=== PATIENT | female | born 1970 | race Caucasian/White ===

== ENCOUNTER → 2018-01-31 | Outpatient (CLI) | payer OTHER | END | disposition home or self-care (01) | LOC: LABWHC1 10:15 | PROVIDERS: ATTEND Internal Medicine Critical Care Medicine | DX: R05 Cough (principal) | CPT/HCPCS: 36415; 82785; 85008 ==

== ENCOUNTER → 2018-03-16 | Outpatient (CLI) | payer OTHER ==
[2018-03-16 17:25] LABS: Alternaria alternata IgE 8.86 kU/L; Birch IgE 2.14 kU/L; Cat Epith & Dander IgE 1.21 kU/L; Cockroach IgE <0.10 kU/L; Dermato. farinae IgE 3.48 kU/L; Dog Dander IgE 0.27 kU/L; Elm IgE <0.10 kU/L; Maple (Box Elder) IgE <0.10 kU/L; Oak IgE 0.26 kU/L; Ragweed,Common IgE 0.71 kU/L; Red Top (Bentgrass) IgE 2.54 kU/L
[2018-03-16 17:30] LABS: Clam IgE <0.10 kU/L; Codfish IgE <0.10 kU/L; Egg White IgE <0.10 kU/L; Peanut IgE <0.10 kU/L; Scallop IgE <0.10 kU/L; Shrimp IgE <0.10 kU/L; Soybean IgE <0.10 kU/L; Walnut IgE (Food) <0.10 kU/L
== END | disposition home or self-care (01) ==
LOC: LABWHC1 11:50
PROVIDERS: ATTEND Internal Medicine Critical Care Medicine
DX: J45.909 Unspecified asthma, uncomplicated (principal); R05 Cough
CPT/HCPCS: 36415; 82785; 86003

== ENCOUNTER → 2018-08-25 | Outpatient (CLI) | payer OTHER ==
--- NOTE | 2018-08-25 13:06 | CT ---
EXAMINATION TYPE: CT angio chest DATE OF EXAM: 08/25/2018 COMPARISON: NONE HISTORY: Shortness of breath CT DLP: 264 mGycm. Automated Exposure Control for Dose Reduction was Utilized. CONTRAST: CTA scan of the thorax is performed with IV Contrast, patient injected with 100 mL of Isovue 370, pul monary embolism protocol. MIP Images are created on CT scanner and reviewed. FINDINGS: LUNGS: The lungs are hypoventilatory resulting in scattered subsegmental atelectasis and slight right hemidiaphragm elevation. The lungs are grossly clear, there is no concerning parenchymal mass or nod ule identified. There is no pleural effusion or pneumothorax seen. The tracheobronchial tree is pa tent. MEDIASTINUM: The left vertebral artery originates strictly from the aortic arch, a normal variant. Th ere is satisfactory enhancement of the pulmonary artery and its branches, there is no CT evidence for pulmonary embolism. There are no greater than 1 cm hilar or mediastinal lymph nodes. No cardiomeg akin or pericardial effusion is seen. IMPRESSION: 1. No evidence of pulmonary embolus. 2. Hypoventilatory lungs with scattered subsegmental atelectasis.
== END | disposition home or self-care (01) ==
LOC: RADCTMAIN 11:55
PROVIDERS: ATTEND Internal Medicine Critical Care Medicine
DX: Z09 Encounter for follow-up examination after completed treatment for conditions other than malignant neoplasm (principal); J98.11 Atelectasis; Z86.711 Personal history of pulmonary embolism
CPT/HCPCS: 71275; Q9967

== ENCOUNTER 2018-12-29 10:35 | Day surgery (SDC) | payer OTHER ==
[2018-12-28 09:36] VITALS: BMI 32.4
[~2018-12-29 10:35] MED LIST: ALBUTEROL NEB (CONC) 2.5 MG/0.5 ML INHALATION ONE; ATROPINE SULFATE 0.4 MG/ML 1 ML VIAL IM ONE; LACTATED RINGERS 1,000 ML IV ONE; LACTATED RINGERS 1,000 ML IV SCH; LIDOCAINE 2% (PF) 20 MG/ML 10 ML AMP INHALATION ONE; LIDOCAINE VISCOUS 2% 15 ML CUP MUCOUS MEM ONE
[2018-12-29 11:02] VITALS: TEMP 97.8
[2018-12-29] MEDS ORDERED: LIDOCAINE 1% 20 ML VIAL (10MG/ML) FOR IV START INTRADERMA ONE (11:17)
[2018-12-29] MEDS ORDERED: PROPOFOL 10 MG/ML 20 ML VIAL IV ONE (12:23)
[2018-12-29] MEDS ORDERED: LIDOCAINE 1% INJ 10MG/ML (20 ML MDV) ONE (12:23)
[2018-12-29] MEDS ORDERED: MIDAZOLAM 2 MG/2 ML VIAL ONE (12:23)
[2018-12-29] MEDS ORDERED: fentaNYL (PF) 50 MCG/ML 2 ML AMP ONE (12:23)
[2018-12-29 12:43] VITALS: RESP 16
[2018-12-29 13:13] VITALS: BP 117/83; PULSE 99
--- NOTE | 2018-12-29 17:10 | OP ---
OPERATIVE REPORT PROCEDURE PERFORMED: Bronchoscopy, airway examination, therapeutic lavage, BAL right middle lobe. PREOP DIAGNOSIS: Severe asthma. POSTOP DIAGNOSIS: Severe asthma. ANESTHESIA: SUPERVISOR ORDNANCE TRUCK INSTALLATION provided general anesthesia, unconscious sedation. BALL MAKER: Dr. May. DESCRIPTION OF PROCEDURE: After the patient was adequately sedated being fully monitored, the bronchoscope inserted through the right nostril. The right nasopharynx, oropharynx and hypopharynx were all traversed. The hypopharyngeal structures including anterior commissure, true cords, false cords, arytenoids, piriform sinuses, right and left vallecula and epiglottis all appeared normal. After topicalization, bronchoscope was pushed through the glottic opening into the trachea. Trachea was normal. There were some secretions noted in the trachea. They were thin. Tracheal tim was sharp. The right and left mainstem were topicalized. The right upper lobe and its 3 segments, right middle lobe and its 2 segments and right lower lobe and its 5 segments, left upper lobe proper and its 2 segments, lingula and its 2 segments and left lower lobe and its 4 segments all had similar findings of diffuse airway erythema and hyperemia. There was diffuse bronchitis noted throughout. It was moderate to severe in its severity. There were thin and thick secretions noted throughout. There was some mucosal friability and the blood vessels were engorged. There was no dominant mass or tumor. Secretions were suctioned. The bronchoscope was wedged into the right middle lobe. The BAL took place. The patient tolerated the procedure well. There was no immediate complication. The patient will be recovered. MMODL / IJN: [id number] /
[2018-12-29 18:02] LABS: Appearance,BF Hazy; Color,BF Red; Nucleated Cells, Body Fluid 1050 /uL
[2018-12-29 18:03] LABS: Mononuclear WBC,Body Fluid 40 %; Polynuclear WBC,Body Fluid 60 %; RBC, Body Fluid 10000 /uL
== END 2018-12-29 13:21 | disposition home or self-care (01) ==
LOC: ORWHC2ENDO 10:35
PROVIDERS: ATTEND Internal Medicine Critical Care Medicine
DX: J45.51 Severe persistent asthma with (acute) exacerbation (principal); J40 Bronchitis, not specified as acute or chronic; Z87.01 Personal history of pneumonia (recurrent); K21.9 Gastro-esophageal reflux disease without esophagitis; Z85.820 Personal history of malignant melanoma of skin; Z80.42 Family history of malignant neoplasm of prostate; Z80.0 Family history of malignant neoplasm of digestive organs; Z82.0 Family history of epilepsy and other diseases of the nervous system; Z79.51 Long term (current) use of inhaled steroids; Z79.899 Other long term (current) drug therapy
CPT/HCPCS: 94640; 81025; 87798 ×3; 87496; 87498; 87529; 88108; 88305; 89050; 87252; 87502; 87634; 87070; 87205; 87116; 87102; 87206; 31624; J2250; J0461; J2001 ×2; J3010; J2704

== ENCOUNTER → 2019-08-16 | Outpatient (CLI) | payer OTHER | END | disposition home or self-care (01) | LOC: LABWHC1 12:09 | PROVIDERS: ATTEND Internal Medicine Critical Care Medicine | DX: J45.909 Unspecified asthma, uncomplicated (principal); R05 Cough | CPT/HCPCS: 36415; 85008 ==

== ENCOUNTER 2019-08-29 12:56 | Day surgery (SDC) | payer BC, OTHER ==
[2019-08-27 15:55] VITALS: BMI 32.1
[~2019-08-29 12:56] MED LIST changes: -LACTATED RINGERS 1,000 ML IV ONE; +LIDOCAINE 1% 20 ML VIAL (10MG/ML) FOR IV START INTRADERMA PRN; -LIDOCAINE 2% (PF) 20 MG/ML 10 ML AMP INHALATION ONE; +LIDOCAINE 2% (PF) 20 MG/ML 5 ML VIAL INHALATION ONE; -LIDOCAINE VISCOUS 2% 15 ML CUP MUCOUS MEM ONE; +LIDOCAINE VISCOUS 300 MG/15 ML CUP MUCOUS MEM ONE; +SODIUM CHLORIDE 0.9% 1,000 ML IV SCH
[2019-08-29 13:23] VITALS: TEMP 97
[2019-08-29 13:25] LABS: Glucose,Whole Blood 88 mg/dL (75-99)
[2019-08-29] MEDS ORDERED: LIDOCAINE 1% INJ 10MG/ML (20 ML MDV) ONE (14:07)
[2019-08-29] MEDS ORDERED: GLYCOPYRROLATE 0.2 MG/ML 2 ML VIAL ONE (14:07)
[2019-08-29] MEDS ORDERED: KETAMINE 10 MG/ML 20 ML VIAL ONE (14:07)
[2019-08-29] MEDS ORDERED: MIDAZOLAM 2 MG/2 ML VIAL ONE (14:07)
[2019-08-29] MEDS ORDERED: PROPOFOL 10 MG/ML 20 ML VIAL IV ONE (14:07)
[2019-08-29] MEDS ORDERED: LIDOCAINE 2% INJ 20 MG/ML INTRATRACH ONE (14:19)
[2019-08-29 14:58] VITALS: RESP 16
[2019-08-29 15:18] VITALS: BP 118/82; PULSE 114
[2019-08-29 15:57] LABS: Appearance,BF Hazy; Color,BF Pink; Nucleated Cells, Body Fluid 120 /uL; RBC, Body Fluid 6875 /uL
[2019-08-29 16:07] LABS: Mononuclear WBC,Body Fluid 34 %; Polynuclear WBC,Body Fluid 64 %
--- NOTE | 2019-08-29 23:46 | PCN ---
PROCEDURE NOTE PROCEDURE PERFORMED: Bronchoscopy airway examination, therapeutic lavage, BAL right middle lobe. PREOPERATIVE DIAGNOSIS: Severe chronic bronchial asthma. POSTOP DIAGNOSIS: Severe chronic bronchial asthma. ELECTRICIAN AIRCRAFT: Dr. May and Dr. Fontana. ANESTHESIA: SMALL LOT OPERATOR anesthesia provided general anesthesia and unconscious sedation. DESCRIPTION OF PROCEDURE: There was informed consent. There was universal timeout. After the patient was adequately sedated and being fully monitored, the bronchoscope was inserted through the right nostril. It passed through the right nasopharynx into the oropharynx. The hypopharynx was identified and topicalized. The hypopharyngeal structures including anterior commissure, true cords, false cords, arytenoids, piriform sinuses, right and left epiglottic and vallecula all appeared relatively normal. The glottic opening was topicalized. After topicalization, bronchoscope was pushed through the glottic opening into the trachea. Trachea appeared normal. Tracheal tim was sharp. Next, after topicalization of the right and left mainstem, the right upper lobe and its 3 segments, right middle lobe and its 2 segments, the right lower lobe and its 5 segments, left upper lobe proper and its 2 segments, the lingula and its 2 segments and the left lower lobe and its 4 segments were all evaluated. There was diffuse airway erythema and hyperemia. The mucosa was inflamed. There was some mucosal friability. There were secretions noted throughout. They were thin and frothy. They were suctioned without difficulty. There was no dominant mass or tumor. After secretions removed, the bronchoscope was wedged into the right middle lobe. The BAL took place. About 30 mL was returned. The patient tolerated the procedure well. After any additional secretions were removed, the bronchoscope was withdrawn. The patient will be recovered. There was no immediate complication. MMODL / IJN: [id number] /
== END 2019-08-29 15:30 | disposition home or self-care (01) ==
LOC: ORWHC2ENDO 12:56
PROVIDERS: ATTEND Internal Medicine Critical Care Medicine
DX: J45.998 Other asthma (principal); K21.9 Gastro-esophageal reflux disease without esophagitis; Z87.01 Personal history of pneumonia (recurrent); Z85.820 Personal history of malignant melanoma of skin; Z87.09 Personal history of other diseases of the respiratory system; Z80.42 Family history of malignant neoplasm of prostate; Z80.0 Family history of malignant neoplasm of digestive organs; Z82.0 Family history of epilepsy and other diseases of the nervous system; Z83.49 Family history of other endocrine, nutritional and metabolic diseases; Z90.49 Acquired absence of other specified parts of digestive tract; Z98.51 Tubal ligation status; Z79.51 Long term (current) use of inhaled steroids; Z79.52 Long term (current) use of systemic steroids; Z79.899 Other long term (current) drug therapy
CPT/HCPCS: 94640; 81025; 88108; 88305; 89050; 87252; 87070; 87205; 87116; 87102; 87206; 31624; J2001 ×3; J2250; J0461; J2704

== ENCOUNTER → 2019-09-24 | Outpatient (CLI) | payer BC | END | disposition home or self-care (01) | LOC: CPPFTMAIN 13:29 | PROVIDERS: ATTEND Internal Medicine Critical Care Medicine | DX: J45.909 Unspecified asthma, uncomplicated (principal); R94.2 Abnormal results of pulmonary function studies | CPT/HCPCS: 94060; 94726; 94729 ==

== ENCOUNTER → 2019-10-04 | Outpatient (CLI) | payer BC ==
[2019-10-04 09:23] LABS: Basophils # (A) 0.1 k/uL (0-0.2); Basophils % (A) 1 %; Eosinophils # (A) 0.1 k/uL (0-0.7); Eosinophils % (A) 1 %; HCT 44.6 % (34.0-46.0); HGB 14.2 gm/dL (11.4-16.0); Lymphocytes # (A) 1.6 k/uL (1.0-4.8); Lymphocytes % (A) 14 %; MCH 30.4 pg (25.0-35.0); MCHC 31.8 g/dL (31.0-37.0); MCV 95.6 fL (80.0-100.0); Mean Platelet Volume 6.4; Monocytes # (A) 0.6 k/uL (0-1.0); Monocytes % (A) 5 %; Neutrophils # (A) 8.9 k/uL (1.3-7.7); Neutrophils % (A) 78 %; Platelet Count 346 k/uL (150-450); RBC 4.67 m/uL (3.80-5.40); RDW 13.7 % (11.5-15.5); WBC 11.4 k/uL (3.8-10.6)
[2019-10-04 16:53] LABS: African American GFR (CKD) 86.4 (60.0-200.0); Albumin 4.5 g/dL (3.80-4.90); Albumin/Globulin Ratio 2.25 (1.60-3.17); Anion Gap 7.2 mmol/L (4.00-12.00); BUN/Creat Ratio 14.44 Ratio (12.00-20.00); Calcium 9.2 mg/dL (8.7-10.3); Carbon Dioxide 27.8 mmol/L (21.6-31.8); Chol/HDL Ratio 5.22; LDL Cholesterol,Calculated 197.6 mg/dL (0.0-131.0); Potassium 4.3 mmol/L (3.5-5.5); Total Bilirubin 0.6 mg/dL (0.2-1.2); Total Protein 6.5 g/dL (6.2-8.2); VLDL Calculation 34.4 mg/dL (5.00-40.00)
[2019-10-04 17:01] LABS: Follicle Stimulating Hormone 50.7 mIU/mL; Luteinizing Hormone 31.4 mIU/mL
== END | disposition home or self-care (01) ==
LOC: LABWHC1 08:11
PROVIDERS: ATTEND Family Medicine
DX: Z00.00 Encounter for general adult medical examination without abnormal findings (principal); N95.1 Menopausal and female climacteric states
CPT/HCPCS: 36415; 80053; 80061; 83001; 83002; 84443; 85025

== ENCOUNTER → 2019-10-10 | Outpatient (CLI) | payer BC ==
--- NOTE | 2019-10-11 10:56 | MM ---
Reason for exam: screening (asymptomatic). Last mammogram was performed 8 years and 5 months ago. History: Took hormonal contraceptives for 3 years beginning at age 19. Physical Findings: A clinical breast exam by your physician is recommended on an annual basis and results should be correlated with mammographic findings. MG Screening Mammo w CAD Bilateral CC and MLO view(s) were taken. Prior study comparison: May 19, 2011, bilateral digital screening mammo w/CAD. April 01, 2010, bilateral digital screening mammogram. The breast tissue is almost entirely fat. There is no discrete abnormality. No significant changes when compared with prior studies. ASSESSMENT: Negative, BI-RAD 1 RECOMMENDATION: Routine screening mammogram of both breasts in 1 year.
== END | disposition home or self-care (01) ==
LOC: RADMAMWWP 07:09
PROVIDERS: ATTEND Family Medicine
DX: Z12.31 Encounter for screening mammogram for malignant neoplasm of breast (principal)
CPT/HCPCS: 77067

== ENCOUNTER 2021-08-07 11:26 | Observation (INO) | payer BC ==
[2021-08-07] MEDS ORDERED: SODIUM CHLORIDE 0.9% 500 ML 500 ML IV STA (12:32)
[2021-08-07] MEDS ORDERED: MORPHINE SULFATE 4 MG/ML SYRINGE IV STA (12:32)
[2021-08-07 13:01] LABS: Basophils # (A) 0.1 k/uL (0-0.2); Basophils % (A) 1 %; Eosinophils # (A) 0.1 k/uL (0-0.7); Eosinophils % (A) 1 %; HCT 41.2 % (34.0-46.0); HGB 13.8 gm/dL (11.4-16.0); Lymphocytes # (A) 2.2 k/uL (1.0-4.8); Lymphocytes % (A) 25 %; MCH 30.8 pg (25.0-35.0); MCHC 33.5 g/dL (31.0-37.0); MCV 91.9 fL (80.0-100.0); Mean Platelet Volume 7.9; Monocytes # (A) 0.4 k/uL (0-1.0); Monocytes % (A) 4 %; Neutrophils # (A) 6.2 k/uL (1.3-7.7); Neutrophils % (A) 68 %; Platelet Count 360 k/uL (150-450); RBC 4.49 m/uL (3.80-5.40)
[2021-08-07 13:14] LABS: Albumin 3.8 g/dL (3.5-5.0); Calcium 9.5 mg/dL (8.4-10.2); Potassium 3.5 mmol/L (3.5-5.1); Total Bilirubin 0.5 mg/dL (0.2-1.3); Total Protein 6.5 g/dL (6.3-8.2)
--- NOTE | 2021-08-07 13:41 | ED ---
General Adult HPI - General Chief complaint: Abdominal Pain Stated complaint: post op complications Time Seen by Provider: 08/07/21 12:26 Source: patient, family, RN notes reviewed, old records reviewed Mode of arrival: ambulatory Limitations: no limitations - History of Present Illness Initial comments: 50-year-old female presenting for evaluation of abdominal pain, has epigastric pain. Patient is 2 days status post upper GI endoscopy and colonoscopy. She has developed some epigastric discomfort which does radiate to both sides of her upper abdomen and lower chest. She has had discomfort and myalgias and bilateral shoulders and arms. No diarrhea. She is passing gas. No history of CAD. No reported fever. - Related Data Home Medications Medication Instructions Recorded Confirmed Beclomethasone Dipropionate [Qvar 2 puff INHALATION RT-BID 12/28/18 08/07/21 80 mcg] Mometasone/Formoterol [Dulera 200 2 puff INHALATION RT-BID 12/28/18 08/07/21 Mcg/5 Mcg Inhaler] Montelukast [Singulair] 10 mg PO HS 12/28/18 08/07/21 Atorvastatin [Lipitor] 10 mg PO W/SUPPER 08/07/21 08/07/21 Baclofen [Lioresal] 20 mg PO ACHS 08/07/21 08/07/21 EPINEPHrine (Auto Inject) [Epipen] 0.3 mg IM ONCE PRN 08/07/21 08/07/21 Omalizumab [Xolair] 300 mg SQ Q14D 08/07/21 08/07/21 Omeprazole 20 mg PO BID 08/07/21 08/07/21 Sertraline [Zoloft] 50 mg PO DAILY 08/07/21 08/07/21 Allergies Allergy/AdvReac Type Severity Reaction Status Date / Time No Known Allergies Allergy Verified 08/07/21 13:39 Review of Systems ROS Statement: Those systems with pertinent positive or pertinent negative responses have been documented in the HPI. ROS Other: All systems not noted in ROS Statement are negative. Past Medical History Past Medical History: Asthma, Cancer, GERD/Reflux Additional Past Medical History / Comment(s): ESOPHAGEAL MOTILITY problem, skin cancer, kidney stones, SOB w/exertion History of Any Multi-Drug Resistant Organisms: None Reported Past Surgical History: Adenoidectomy, Cholecystectomy, Tonsillectomy, Tubal Ligation Additional Past Surgical History / Comment(s): EGD, manometry,motility study,. LIPOMA LT ARM, RT ARM-REMOVAL BLUE NEVI -MALIGNANT, MELANOMA REMOVED FROM STOMACH. KIDNEY STONE-LITHOTRIPSY, bronchoscopy 2018 Past Anesthesia/Blood Transfusion Reactions: No Reported Reaction Past Psychological History: No Psychological Hx Reported Smoking Status: Never smoker Past Alcohol Use History: None Reported Past Drug Use History: None Reported - Past Family History Mother Family Medical History: Cancer Additional Family Medical History / Comment(s): PHLEBITIS Father Family Medical History: Cancer, Diabetes Mellitus General Exam Limitations: no limitations General appearance: alert, in no apparent distress Head exam: Present: atraumatic, normocephalic Eye exam: Present: normal appearance, PERRL ENT exam: Present: mucous membranes dry Neck exam: Present: normal inspection. Absent: tenderness, meningismus Respiratory exam: Present: normal lung sounds bilaterally. Absent: respiratory distress, wheezes, rales Cardiovascular Exam: Present: regular rate, normal rhythm GI/Abdominal exam: Present: soft, distended. Absent: tenderness, guarding, rebound Neurological exam: Present: alert, oriented X3, CN II-XII intact. Absent: motor sensory deficit Psychiatric exam: Present: normal affect, normal mood Skin exam: Present: warm, dry, intact, normal color. Absent: cyanosis, diaphoretic Course Vital Signs 08/07/21 08/07/21 11:47 13:58 Temperature 98 F Pulse Rate 91 93 Respiratory 18 18 Rate Blood Pressure 168/106 162/89 O2 Sat by Pulse 93 L 96 Oximetry EKG Findings - EKG Comments: EKG Findings:: EKG: Normal sinus rhythm, rate of 81, OR interval 180, QRS duration 88, QTC 464, no ST segment elevation. Medical Decision Making - Medical Decision Making 50-year-old female status post upper GI endoscopy and colonoscopy presenting with epigastric pain and lower chest pain. EKG sinus rhythm without ST segment elevation. Chest x-rays clear, no focal findings. CT of the abdomen is performed which shows some incidental findings of fatty liver and renal cysts but no acute findings to explain the patient's pain. She has a normal CBC, normal CMP, negative troponin. Urinalysis is pending. Her symptoms are unable to be controlled in the emergency department. She will be placed in observation for symptomatic treatment and reevaluation. Case discussed with [facility] - Lab Data Result diagrams: 08/07/21 12:41 08/07/21 12:41 Lab Results 08/07/21 08/07/21 08/07/21 Range/Units 12:41 12:41 12:41 WBC 9.0 (3.8-10.6) k/uL RBC 4.49 (3.80-5.40) m/uL Hgb 13.8 (11.4-16.0) gm/dL Hct 41.2 (34.0-46.0) % MCV 91.9 (80.0-100.0) fL MCH 30.8 (25.0-35.0) pg MCHC 33.5 (31.0-37.0) g/dL RDW 13.0 (11.5-15.5) % Plt Count 360 (150-450) k/uL MPV 7.9 Neutrophils % 68 % Lymphocytes % 25 % Monocytes % 4 % Eosinophils % 1 % Basophils % 1 % Neutrophils # 6.2 (1.3-7.7) k/uL Lymphocytes # 2.2 (1.0-4.8) k/uL Monocytes # 0.4 (0-1.0) k/uL Eosinophils # 0.1 (0-0.7) k/uL Basophils # 0.1 (0-0.2) k/uL PT 9.9 (9.0-12.0) sec INR 0.9 (<1.2) APTT 22.8 (22.0-30.0) sec Sodium 143 (137-145) mmol/L Potassium 3.5 (3.5-5.1) mmol/L Chloride 110 H (98-107) mmol/L Carbon Dioxide 27 (22-30) mmol/L Anion Gap 6 mmol/L BUN 11 (7-17) mg/dL Creatinine 0.92 (0.52-1.04) mg/dL Est GFR (CKD-EPI)AfAm 84 (>60 ml/min/1.73 sqM) Est GFR (CKD-EPI)NonAf 73 (>60 ml/min/1.73 sqM) Glucose 107 H (74-99) mg/dL Plasma Lactic Acid [place] (0.7-2.0) mmol/L Calcium 9.5 (8.4-10.2) mg/dL Total Bilirubin 0.5 (0.2-1.3) mg/dL AST 27 (14-36) U/L ALT 45 H (4-34) U/L Alkaline Phosphatase 87 (38-126) U/L Troponin I (0.000-0.034) ng/mL Total Protein 6.5 (6.3-8.2) g/dL Albumin 3.8 (3.5-5.0) g/dL Amylase 46 (30-110) U/L Lipase 171 (23-300) U/L Coronavirus (PCR) (Not Detectd) 08/07/21 08/07/21 08/07/21 Range/Units 12:41 12:41 12:41 WBC (3.8-10.6) k/uL RBC (3.80-5.40) m/uL Hgb (11.4-16.0) gm/dL Hct (34.0-46.0) % MCV (80.0-100.0) fL MCH (25.0-35.0) pg MCHC (31.0-37.0) g/dL RDW (11.5-15.5) % Plt Count (150-450) k/uL MPV Neutrophils % % Lymphocytes % % Monocytes % % Eosinophils % % Basophils % % Neutrophils # (1.3-7.7) k/uL Lymphocytes # (1.0-4.8) k/uL Monocytes # (0-1.0) k/uL Eosinophils # (0-0.7) k/uL Basophils # (0-0.2) k/uL PT (9.0-12.0) sec INR (<1.2) APTT (22.0-30.0) sec Sodium (137-145) mmol/L Potassium (3.5-5.1) mmol/L Chloride (98-107) mmol/L Carbon Dioxide (22-30) mmol/L Anion Gap mmol/L BUN (7-17) mg/dL Creatinine (0.52-1.04) mg/dL Est GFR (CKD-EPI)AfAm (>60 ml/min/1.73 sqM) Est GFR (CKD-EPI)NonAf (>60 ml/min/1.73 sqM) Glucose (74-99) mg/dL Plasma Lactic Acid [place] 1.0 (0.7-2.0) mmol/L Calcium (8.4-10.2) mg/dL Total Bilirubin (0.2-1.3) mg/dL AST (14-36) U/L ALT (4-34) U/L Alkaline Phosphatase (38-126) U/L Troponin I <0.012 (0.000-0.034) ng/mL Total Protein (6.3-8.2) g/dL Albumin (3.5-5.0) g/dL Amylase (30-110) U/L Lipase (23-300) U/L Coronavirus (PCR) Not Detected (Not Detectd) Disposition Clinical Impression: Intractable abdominal pain Disposition: ADMITTED IP TO THIS [facility] Condition: Stable Is patient prescribed a controlled substance at d/c from ED?: No Referrals: Caity Maddox MD [Primary Care Provider] - 1-2 days Decision to Admit Reason: Admit from EC Decision Date: 08/07/21 Decision Time: 15:11
[2021-08-07 13:46] LABS: INR 0.9 (<1.2); Partial Thromboplastin Time 22.8 sec (22.0-30.0); Prothrombin Time 9.9 sec (9.0-12.0)
--- NOTE | 2021-08-07 14:05 | CT ---
EXAMINATION TYPE: CT abdomen pelvis w con DATE OF EXAM: 08/07/2021 COMPARISON: None INDICATION: pain post colonoscopy DLP: 1033.4 mGycm, Automated exposure control for dose reduction was used. CONTRAST: 100 mL of Isovue 300. Study performed without Oral Contrast TECHNIQUE: Axial images were obtained from above the diaphragm to the pubic rami in the axial plane a t 5 mm thick sections. Reconstructed images are reviewed on the computer in the coronal plane. FINDINGS: Limited CT sections are obtained the lung bases. The lung bases are clear. CT ABDOMEN: No free air is evident. Abnormal bowel gas is not evident. There are a few small scattere d diverticula are present without evidence of acute diverticulitis. Liver: There is mild fatty infiltration to the liver. Spleen: Normal Pancreas: Normal Adrenal glands: The adrenal glands are normal. Gallbladder: Surgically absent Kidneys: No masses are evident. No hydronephrosis is present. There is a 2.1 cm cyst posterior infe rior pole left kidney measuring 15 Hounsfield units. There is a cortical renal cyst on the mid engineering group leader ior lateral kidney measuring 1.1 cm. An inferior pole cortical renal cyst in the left kidney measures 2.2 cm and 13 Hounsfield units. Scattered tiny cortical renal cysts are in the right kidney. There i s a cyst at the inferior pole right kidney measuring 2.2 cm and 13 Hounsfield units. No renal stones are identified. Aorta: Normal Inferior vena cava: Normal. CT PELVIS: Loops of bowel within the abdomen and pelvis are normal. The study is without oral contrast limit ing bowel evaluation. Appendix: Normal as visualized. Urinary bladder: Normal. Genitourinary structures: Uterus is unremarkable. Adnexal regions are clear. No free fluid is pelvis. Osseous structures: No suspicious lytic or sclerotic lesions. IMPRESSIONS: 1. Bilateral cortical renal cysts. 2. Mild fatty infiltration of the liver.
[2021-08-07 14:45] LABS: Appearance,Urine Clear (Clear); Bacteria,Urine Rare /hpf; Bilirubin,Urine Negative (Negative); Blood,Urine Negative (Negative); Color,Urine Light Yellow; Glucose,Urine (UA) Negative (Negative); Ketones,Urine Negative (Negative); Leukocyte Esterase,Urine Moderate (Negative); Mucus,Urine Rare /hpf; Nitrite,Urine Negative (Negative); Protein,Urine Negative (Negative); RBC,Urine <1 /hpf (0-5); Squamous Epithelial Cell,Urine 2 /hpf (0-4); Urobilinogen,Urine <2.0 mg/dL (<2.0); WBC,Urine 13 /hpf (0-5)
--- NOTE | 2021-08-07 14:52 | XR ---
EXAMINATION TYPE: XR chest 2V DATE OF EXAM: 08/07/2021 COMPARISON: NONE TECHNIQUE: PA and lateral views submitted. HISTORY: Generalized body aches with pain and weakness FINDINGS: The lungs are clear and there is no pneumothorax, pleural effusion, or focal pneumonia. Heart size normal. No overt failure. Biapical pleural thickening. Surgical clips in the upper abdomen. Hypertrop hic change of the spine. IMPRESSION: 1. No acute process.
[2021-08-07] MEDS ORDERED: HYDROmorphone 0.5 MG/0.5 ML SYRINGE IVP STA (14:56)
[2021-08-07] MEDS ORDERED: ONDANSETRON 4 MG/2 ML VIAL IVP PRN (15:09)
[2021-08-07] MEDS ORDERED: NALOXONE 0.4 MG/ML 1 ML VIAL IV PRN (15:09)
[2021-08-07] MEDS ORDERED: HYDROmorphone 0.5 MG/0.5 ML SYRINGE IVP PRN (15:09)
[2021-08-07] MEDS ORDERED: PANTOPRAZOLE 40 MG/10 ML VIAL IVP STA (15:10)
[2021-08-07] MEDS: SODIUM CHLORIDE 0.9% 1,000 ML IV SCH (15:47)
[2021-08-07] MEDS: HYDROmorphone 1 MG/ML 1 ML SYRINGE IVP PRN ×2 (18:31→22:19)
[2021-08-07] MEDS: ACETAMINOPHEN TAB 325 MG TAB PO PRN (20:03)
[2021-08-07] MEDS ORDERED: NON FORMULARY DRUG (Omalizumab 150 MG Each) SQ SCH (21:15)
[2021-08-08] MEDS: ACETAMINOPHEN TAB 325 MG TAB PO PRN (01:43)
[2021-08-08] MEDS: SODIUM CHLORIDE 0.9% 1,000 ML IV SCH (05:51)
[2021-08-08] MEDS ORDERED: SYMBICORT 160-4.5 MCG INHALER INHALATION SCH (08:00)
[2021-08-08] MEDS ORDERED: FLUTICASONE 110 MCG INHALER INHALATION SCH (08:00)
[2021-08-08] MEDS: BACLOFEN 10 MG TAB PO SCH ×2 (08:22→13:47)
[2021-08-08] MEDS ORDERED: HYDROmorphone 0.2 MG/1 ML SYRINGE IM PRN (08:55)
--- NOTE | 2021-08-08 08:55 | P.HPIM ---
History of Present Illness H&P Date: 08/07/21 Chief Complaint: Abdominal pain 50-year-old female presenting for evaluation of abdominal pain, has epigastric pain. Patient is 2 days status post upper GI endoscopy and colonoscopy. She has developed some epigastric discomfort which does radiate to both sides of her upper abdomen and lower chest. She has had discomfort and myalgias and bilateral shoulders and arms. No diarrhea. She is passing gas. No history of CAD. No reported fever. EKG sinus rhythm without ST segment elevation. Chest x-rays clear, no focal findings. CT of the abdomen is performed which shows some incidental findings of fatty liver and renal cysts but no acute findings to explain the patient's pain. She has a normal CBC, normal CMP, negative troponin. Urinalysis is pending. Her symptoms are unable to be controlled in the emergency department. She will be placed in observation for symptomatic treatment and reevaluation. Review of Systems REVIEW OF SYSTEMS: CONSTITUTIONAL: No fever, no malaise, no fatigue. HEENT: No recent visual problems or hearing problems. Denied any sore throat. CARDIOVASCULAR: No chest pain, orthopnea, PND, no palpitations, no syncope. PULMONARY: No shortness of breath, no cough, no hemoptysis. GASTROINTESTINAL: No diarrhea, no nausea, no vomiting, no abdominal pain. NEUROLOGICAL: No headaches, no weakness, no numbness. HEMATOLOGICAL: Denies any bleeding or petechiae. GENITOURINARY: Denies any burning micturition, frequency, or urgency. MUSCULOSKELETAL/RHEUMATOLOGICAL: Denies any joint pain, swelling, or any muscle pain. ENDOCRINE: Denies any polyuria or polydipsia. The rest of the 14-point review of systems is negative. Past Medical History Past Medical History: Asthma, Cancer, GERD/Reflux Additional Past Medical History / Comment(s): ESOPHAGEAL MOTILITY problem, skin cancer, kidney stones, SOB w/exertion History of Any Multi-Drug Resistant Organisms: None Reported Past Surgical History: Adenoidectomy, Cholecystectomy, Tonsillectomy, Tubal Ligation Additional Past Surgical History / Comment(s): EGD, manometry,motility study,. LIPOMA LT ARM, RT ARM-REMOVAL BLUE NEVI -MALIGNANT, MELANOMA REMOVED FROM STOMACH. KIDNEY STONE-LITHOTRIPSY, bronchoscopy 2018 Past Anesthesia/Blood Transfusion Reactions: No Reported Reaction Past Psychological History: No Psychological Hx Reported Smoking Status: Never smoker Past Alcohol Use History: None Reported Past Drug Use History: None Reported - Past Family History Mother Family Medical History: Cancer Additional Family Medical History / Comment(s): PHLEBITIS Father Family Medical History: Cancer, Diabetes Mellitus Medications and Allergies Home Medications Medication Instructions Recorded Confirmed Type Beclomethasone Dipropionate [Qvar 2 puff INHALATION RT-BID 12/28/18 08/07/21 H istory 80 mcg] Mometasone/Formoterol [Dulera 200 2 puff INHALATION RT-BID 12/28/18 08/07/21 H istory Mcg/5 Mcg Inhaler] Montelukast [Singulair] 10 mg PO HS 12/28/18 08/07/21 History Atorvastatin [Lipitor] 10 mg PO W/SUPPER 08/07/21 08/07/21 History Baclofen [Lioresal] 20 mg PO ACHS 08/07/21 08/07/21 History EPINEPHrine (Auto Inject) [Epipen] 0.3 mg IM ONCE PRN 08/07/21 08/07/21 History Omalizumab [Xolair] 300 mg SQ Q14D 08/07/21 08/07/21 History Omeprazole 20 mg PO BID 08/07/21 08/07/21 History Sertraline [Zoloft] 50 mg PO DAILY 08/07/21 08/07/21 History Allergies Allergy/AdvReac Type Severity Reaction Status Date / Time No Known Allergies Allergy Verified 08/07/21 13:39 Physical Exam Vitals: Vital Signs Temp Pulse Pulse Resp BP BP Pulse Ox 08/07/21 16:36 98.2 F 69 18 127/79 94 L 08/07/21 15:53 75 18 142/99 94 L 08/07/21 13:58 93 18 162/89 96 08/07/21 11:47 98 F 91 18 168/106 93 L Intake and Output 08/07/21 08/07/21 08/07/21 06:59 14:59 22:59 Intake Total 270 Balance 270 Intake: Intake, IV Titration 150 Amount Sodium Chloride 0.9% 1, 150 000 ml @ 75 mls/hr IV . [id number] [facility] Rx#:[id number] Oral 120 Other: Weight 84.822 kg 84.822 kg General appearance: alert, in no apparent distress Head exam: Present: atraumatic, normocephalic Eye exam: Present: normal appearance, PERRL ENT exam: Present: mucous membranes dry Neck exam: Present: normal inspection. Absent: tenderness, meningismus Respiratory exam: Present: normal lung sounds bilaterally. Absent: respiratory distress, wheezes, rales Cardiovascular Exam: Present: regular rate, normal rhythm GI/Abdominal exam: Present: soft, distended. Absent: tenderness, guarding, rebound Neurological exam: Present: alert, oriented X3, CN II-XII intact. Absent: motor sensory deficit Psychiatric exam: Present: normal affect, normal mood Skin exam: Present: warm, dry, intact, normal color. Absent: cyanosis, di aphoretic Results CBC & Chem 7: 08/07/21 12:41 08/07/21 12:41 Labs: Abnormal Lab Results - Last 24 Hours (Table) 08/07/21 08/07/21 Range/Units 12:41 12:41 Chloride 110 H (98-107) mmol/L Glucose 107 H (74-99) mg/dL ALT 45 H (4-34) U/L Ur Leukocyte Esterase Moderate H (Negative) Urine WBC 13 H (0-5) /hpf Urine Bacteria Rare H (None) /hpf Urine Mucus Rare H (None) /hpf Thrombosis Risk Factor Assmnt - Choose All That Apply Each Factor Represents 1 point: Age 41-60 years, Obesity (BMI >25) Each Risk Factor Represents 2 Points: Laparoscopic surgery Other congenital or acquired thrombophilia - If yes, enter type in comment: No Thrombosis Risk Factor Assessment Total Risk Factor Score: 4 Thrombosis Risk Factor Assessment Level: Moderate Risk Assessment and Plan Assessment: 1. Intractable abdominal pain; patient is status post endoscopy and colonoscopy which were reportedly unremarkable; continues to present with epigastric pain - Patient has been placed on Protonix 40 mg daily; symptomatic treatment with Dilaudid 0.5 mg IV every 3 hours when necessary; remains on Zofran for symptomatic control of nausea and vomiting - Patient will remain on IV hydration with normal saline at 75 mL an hour - CT of the abdomen and pelvis has been unremarkable - We will plan to consult general surgery if patient continues to be in pain 2. Acute UTI; UA does reveal moderate leukocyte Estrace and some bacteria; patient is currently afebrile and WBC is within normal limit; we will hold off on IV antibiotics at this time to final culture is available 3. Asthma; not in exacerbation; continue home inhaler therapy in form of Qvar, Dulera, Xolair and Singulair 4. Depression; continue with home dose of Zoloft 50 mg daily 5. Hyperlipidemia; Lipitor 10 mg by mouth daily at bedtime 6. Gastroesophageal reflux disease; patient takes omeprazole 20 mg twice a day at home; we will hold off on omeprazole and escalate Protonix up to 40 mg by mouth twice a day DVT prophylaxis; SCDs CODE STATUS; full code
[2021-08-08 08:59] VITALS: BP 146/92; PULSE 64; RESP 17; TEMP 97.6
[2021-08-08] MEDS ORDERED: PANTOPRAZOLE 40 MG TABLET PO SCH (09:00)
[2021-08-08] MEDS ORDERED: SERTRALINE 50 MG TAB PO SCH (09:00)
[2021-08-08] MEDS ORDERED: ATORVASTATIN 10 MG TAB PO SCH (17:30)
[2021-08-08] MEDS ORDERED: MONTELUKAST 10 MG TAB PO SCH (21:00)
== END 2021-08-08 14:44 | disposition home or self-care (01) ==
LOC: EC 11:26 → 6PED 15:09
PROVIDERS: ADMIT Internal Medicine; ATTEND Internal Medicine
DX: R10.13 Epigastric pain (principal); R07.89 Other chest pain; R11.2 Nausea with vomiting, unspecified; N39.0 Urinary tract infection, site not specified; J45.909 Unspecified asthma, uncomplicated; F32.9 Major depressive disorder, single episode, unspecified; E78.5 Hyperlipidemia, unspecified; K21.9 Gastro-esophageal reflux disease without esophagitis; M79.18 Myalgia, other site; E66.9 Obesity, unspecified; Z68.31 Body mass index [BMI] 31.0-31.9, adult; K22.8 Other specified diseases of esophagus; Z20.822 Contact with and (suspected) exposure to COVID-19; Z87.442 Personal history of urinary calculi; Z85.820 Personal history of malignant melanoma of skin; Z79.51 Long term (current) use of inhaled steroids; Z79.899 Other long term (current) drug therapy; Z90.49 Acquired absence of other specified parts of digestive tract; Z98.890 Other specified postprocedural states; Z83.3 Family history of diabetes mellitus; Z80.9 Family history of malignant neoplasm, unspecified; Z83.2 Family history of diseases of the blood and blood-forming organs and certain disorders involving the immune mechanism
CPT/HCPCS: 96361 ×3; 96376 ×2; 96374; 96375; 99285; 36415; 94640 ×2; 93005; 80053; 82150; 83605; 83690; 84484; 85025; 85610; 85730; 81001; 87086; 87635; 71046; 74177; G0378 ×2; J2270; J1170 ×3; C9113; Q9967

== ENCOUNTER 2021-08-27 16:22 | Emergency (ER) | payer BC ==
[2021-08-27 16:32] VITALS: RESP 18; TEMP 98.6
[2021-08-27] MEDS ORDERED: SODIUM CHLORIDE 0.9% 500 ML 500 ML IV STA (16:49)
--- NOTE | 2021-08-27 16:50 | ED ---
Neuro HPI - General Chief Complaint: Neuro Symptoms/Deficit Stated Complaint: Stroke Time Seen by Provider: 08/27/21 16:37 Source: patient Mode of arrival: ambulatory Limitations: no limitations - History of Present Illness Is the patient presenting with stroke symptoms?: Yes Last Known Well Date: 08/27/21 Last Known Well Time: 07:00 Initial Comments: Shiloh bolaños 50-year-old female presents to the ER today for evaluation of left- sided facial droop. reports she did not have facial droop when he left for work at 7:30 this morning, she was in physical therapy with her therapist noted to have facial droop and advised her to come to the emergency department. Patient does note that she's been suffering from frequent headaches, she also notes that she was recently treated for melanoma with wide excision on her abdomen. Sutures were removed in the past couple of weeks. Location: left face History of same: No Place: home Severity: mild Improves With: none Worsens With: none Associated Symptoms: denies other symptoms Treatments Prior to Arrival: none - Related Data Home Medications: Home Medications Medication Instructions Recorded Confirmed Beclomethasone Dipropionate [Qvar 2 puff INHALATION RT-BID 12/28/18 08/27/21 80 mcg] Mometasone/Formoterol [Dulera 200 2 puff INHALATION RT-BID 12/28/18 08/27/21 Mcg-5 Mcg Inhaler] Montelukast [Singulair] 10 mg PO HS 12/28/18 08/27/21 Atorvastatin [Lipitor] 10 mg PO AC-SUPPER 08/07/21 08/27/21 Baclofen [Lioresal] 20 mg PO ACHS 08/07/21 08/27/21 EPINEPHrine (Auto Inject) [Epipen] 0.3 mg IM ONCE PRN 08/07/21 08/27/21 Omalizumab [Xolair] 300 mg SQ Q14D 08/07/21 08/27/21 Omeprazole 20 mg PO BID 08/07/21 08/27/21 Sertraline [Zoloft] 50 mg PO DAILY 08/07/21 08/27/21 Allergies/Adverse Reactions: Allergies Allergy/AdvReac Type Severity Reaction Status Date / Time No Known Allergies Allergy Verified 08/27/21 17:47 Review of Systems ROS Statement: Those systems with pertinent positive or pertinent negative responses have been documented in the HPI. ROS Other: All systems not noted in ROS Statement are negative. General Exam Limitations: no limitations General appearance: alert, in no apparent distress Head exam: Present: atraumatic, normocephalic Eye exam: Present: PERRL ENT exam: Present: mucous membranes moist Neck exam: Present: normal inspection Respiratory exam: Present: normal lung sounds bilaterally Cardiovascular Exam: Present: regular rate, normal rhythm GI/Abdominal exam: Present: soft. Absent: distended, tenderness, guarding, rebound Extremities exam: Present: normal inspection, full ROM, normal capillary refill. Absent: tenderness, pedal edema, calf tenderness Neurological exam: Present: alert, oriented X3, other. Absent: CN II-XII intact Expanded Speech: Present: fluid speech Cranial nerves: EOM's Intact: Normal, Tongue Deviation: Normal, Facial Sensation: Normal, Facial Palsy with Forehead Movement: Abnormal Left Upper motor neuron: Pronator Drift: Normal Motor strength exam: RUE: 5, LUE: 5, RLE: 5, LLE: 5 Eye Response: (4) open spontaneously Motor Response: (6) obeys commands Verbal Response: (5) oriented Psychiatric exam: Present: normal affect, normal mood Skin exam: Present: warm, dry Stroke MDM - Lab Data Result diagrams: 08/27/21 16:59 08/27/21 16:59 Lab Results 08/27/21 08/27/21 08/27/21 Range/Units 16:56 16:59 16:59 WBC 13.1 H (3.8-10.6) k/uL RBC 4.77 (3.80-5.40) m/uL Hgb 14.9 (11.4-16.0) gm/dL Hct 44.8 (34.0-46.0) % MCV 93.9 (80.0-100.0) fL MCH 31.3 (25.0-35.0) pg MCHC 33.3 (31.0-37.0) g/dL RDW 12.6 (11.5-15.5) % Plt Count 360 (150-450) k/uL MPV 8.0 Neutrophils % 75 % Lymphocytes % 18 % Monocytes % 3 % Eosinophils % 1 % Basophils % 0 % Neutrophils # 9.9 H (1.3-7.7) k/uL Lymphocytes # 2.4 (1.0-4.8) k/uL Monocytes # 0.5 (0-1.0) k/uL Eosinophils # 0.2 (0-0.7) k/uL Basophils # 0.1 (0-0.2) k/uL PT 10.1 (9.0-12.0) sec INR 0.9 (<1.2) APTT 22.5 (22.0-30.0) sec Sodium (137-145) mmol/L Potassium (3.5-5.1) mmol/L Chloride (98-107) mmol/L Carbon Dioxide (22-30) mmol/L Anion Gap mmol/L BUN (7-17) mg/dL Creatinine (0.52-1.04) mg/dL Est GFR (CKD-EPI)AfAm (>60 ml/min/1.73 sqM) Est GFR (CKD-EPI)NonAf (>60 ml/min/1.73 sqM) Glucose (74-99) mg/dL POC Glucose (mg/dL) 106 H (75-99) mg/dL POC Glu [employer] ID Svacha, II, Nicolas Calcium (8.4-10.2) mg/dL Total Bilirubin (0.2-1.3) mg/dL AST (14-36) U/L ALT (4-34) U/L Alkaline Phosphatase (38-126) U/L Troponin I (0.000-0.034) ng/mL Total Protein (6.3-8.2) g/dL Albumin (3.5-5.0) g/dL Coronavirus (PCR) (Not Detectd) 08/27/21 08/27/21 08/27/21 Range/Units 16:59 16:59 17:30 WBC (3.8-10.6) k/uL RBC (3.80-5.40) m/uL Hgb (11.4-16.0) gm/dL Hct (34.0-46.0) % MCV (80.0-100.0) fL MCH (25.0-35.0) pg MCHC (31.0-37.0) g/dL RDW (11.5-15.5) % Plt Count (150-450) k/uL MPV Neutrophils % % Lymphocytes % % Monocytes % % Eosinophils % % Basophils % % Neutrophils # (1.3-7.7) k/uL Lymphocytes # (1.0-4.8) k/uL Monocytes # (0-1.0) k/uL Eosinophils # (0-0.7) k/uL Basophils # (0-0.2) k/uL PT (9.0-12.0) sec INR (<1.2) APTT (22.0-30.0) sec Sodium 140 (137-145) mmol/L Potassium 3.7 (3.5-5.1) mmol/L Chloride 107 (98-107) mmol/L Carbon Dioxide 25 (22-30) mmol/L Anion Gap 8 mmol/L BUN 15 (7-17) mg/dL Creatinine 0.90 (0.52-1.04) mg/dL Est GFR (CKD-EPI)AfAm 86 (>60 ml/min/1.73 sqM) Est GFR (CKD-EPI)NonAf 75 (>60 ml/min/1.73 sqM) Glucose 118 H (74-99) mg/dL POC Glucose (mg/dL) (75-99) mg/dL POC Glu Surgical [employer] Fabricator ID Calcium 9.6 (8.4-10.2) mg/dL Total Bilirubin 0.4 (0.2-1.3) mg/dL AST 21 (14-36) U/L ALT 36 H (4-34) U/L Alkaline Phosphatase 100 (38-126) U/L Troponin I <0.012 (0.000-0.034) ng/mL Total Protein 7.3 (6.3-8.2) g/dL Albumin 4.3 (3.5-5.0) g/dL Coronavirus (PCR) Not Detected (Not Detectd) - NIH Stroke Scale 1a. Level of Consciousness: (0) alert 1b. LOC Questions: (0) answers correctly 1c. LOC Commands: (0) performs tasks correctly 2. Best Gaze: (0) normal 3. Visual: (0) no visual loss 4. Facial Palsy: (2) partial paralysis 5a. Motor Arm Left: (0) no drift 5b. Motor Arm Right: (0) no drift 6a. Motor Leg Left: (0) no drift 6b. Motor Leg Right: (0) no drift 7. Limb Ataxia: (0) absent 8. Sensory: (0) normal 9. Best Language: (0) no aphasia 10. Dysarthria: (0) normal 11. Extinction/Inattention: (0) no abnormality - Thrombolytic Inclusion/Exclusion Thrombolytic Exclusion Criteria: Onset of Symptoms Unknown (Onset after 7:30am before 4:30pm) Thrombolytic Contraindications: Stroke Too Mild - Medical Decision Making Patient was seen and evaluated in trauma #2 immediately upon arrival, patient with left-sided facial droop that has been on in the past 10 hours, unknown exact onset, no other focal neurologic deficits, patient does have chronic headaches is having a headache today Patient was taken to head CT where a CT and CTA were performed Pt care was discussed with Dr. Banegas who states NIH is too low for TPA or intervention, recommend supportive care with MRI Patient care was discussed with the radiologist, computed tomography scan is concerning for diffuse metastatic disease with 3 mm midline shift and effacement of the horns of the lateral ventricle. Given the patient's recent history of diagnosis of melanoma have a high suspicion that she has metastatic melanoma. We will plan to transfer the patient to facility with neurosurgical and oncology capabilities. Patient is agreeable to plan for transfer, [facility] capacity, patient would like to be transfer to [place] where her daughter is employed. Patient care was discussed with Dr. Patterson in the emergency department [facility] in [place], they accept the transfer. - EKG Data -: EKG Interpreted by [facility] EKG shows normal: sinus rhythm Rate: normal EKG was obtained at 1641 rate is 92 rhythm is sinus there is normal axis are normal intervals there are no acute ST elevations or depressions there is no active evidence of acute ischemia or infarction 08/27/21 19:00 Past Medical History Past Medical History: Asthma, Cancer, GERD/Reflux Additional Past Medical History / Comment(s): ESOPHAGEAL MOTILITY problem, skin cancer, kidney stones, SOB w/exertion History of Any Multi-Drug Resistant Organisms: None Reported Past Surgical History: Adenoidectomy, Cholecystectomy, Tonsillectomy, Tubal Ligation Additional Past Surgical History / Comment(s): EGD, manometry,motility study,. LIPOMA LT ARM, RT ARM-REMOVAL BLUE NEVI -MALIGNANT, MELANOMA REMOVED FROM STOMACH. KIDNEY STONE-LITHOTRIPSY, bronchoscopy 2018, egd colonoscopy, melanoma removed Past Anesthesia/Blood Transfusion Reactions: No Reported Reaction Past Psychological History: No Psychological Hx Reported Smoking Status: Never smoker Past Alcohol Use History: None Reported Past Drug Use History: None Reported - Past Family History Mother Family Medical History: Cancer Additional Family Medical History / Comment(s): PHLEBITIS Father Family Medical History: Cancer, Diabetes Mellitus Course Vital Signs 08/27/21 08/27/21 08/27/21 16:29 16:45 17:00 Temperature 98.6 F Pulse Rate 91 88 89 Respiratory 18 18 18 Rate Blood Pressure 180/97 158/103 155/97 O2 Sat by Pulse 95 96 95 Oximetry 08/27/21 08/27/21 08/27/21 17:15 17:30 17:52 Temperature Pulse Rate 79 92 86 Respiratory 18 18 18 Rate Blood Pressure 155/92 152/99 152/94 O2 Sat by Pulse 95 95 95 Oximetry 08/27/21 08/27/21 18:26 19:45 Temperature 98.6 F Pulse Rate 85 83 Respiratory 18 18 Rate Blood Pressure 150/99 154/96 O2 Sat by Pulse 94 L 93 L Oximetry Critical Care Time Critical Care Time: Yes Total Critical Care Time: 45 Disposition Clinical Impression: Brain metastases, Facial droop Disposition: OTHER INSTITUTION NOT DEFINED Condition: Serious Is patient prescribed a controlled substance at d/c from ED?: No Referrals: Caity Maddox MD [Primary Care Provider] - 1-2 days - Out of Hospital Transfer - Req. Specs Out of Hospital Transfer - Requested Specifics: Other Emergency Center ([facility])
[2021-08-27 16:57] LABS: Glucose,Whole Blood 106 mg/dL (75-99)
[2021-08-27 17:05] LABS: Basophils # (A) 0.1 k/uL (0-0.2); Basophils % (A) 0 %; Eosinophils # (A) 0.2 k/uL (0-0.7); Eosinophils % (A) 1 %; HCT 44.8 % (34.0-46.0); HGB 14.9 gm/dL (11.4-16.0); Lymphocytes # (A) 2.4 k/uL (1.0-4.8); Lymphocytes % (A) 18 %; MCH 31.3 pg (25.0-35.0); MCHC 33.3 g/dL (31.0-37.0); MCV 93.9 fL (80.0-100.0); Monocytes # (A) 0.5 k/uL (0-1.0); Monocytes % (A) 3 %; Neutrophils # (A) 9.9 k/uL (1.3-7.7); Neutrophils % (A) 75 %; Platelet Count 360 k/uL (150-450); RBC 4.77 m/uL (3.80-5.40); RDW 12.6 % (11.5-15.5); WBC 13.1 k/uL (3.8-10.6)
[2021-08-27 17:13] LABS: Albumin 4.3 g/dL (3.5-5.0); Calcium 9.6 mg/dL (8.4-10.2); INR 0.9 (<1.2); Partial Thromboplastin Time 22.5 sec (22.0-30.0); Potassium 3.7 mmol/L (3.5-5.1); Prothrombin Time 10.1 sec (9.0-12.0); Total Bilirubin 0.4 mg/dL (0.2-1.3); Total Protein 7.3 g/dL (6.3-8.2)
[2021-08-27] MEDS ORDERED: ASPIRIN 81 MG PO STA (17:24)
[2021-08-27] MEDS ORDERED: NALOXONE 0.4 MG/ML 1 ML VIAL IV PRN (17:27)
[2021-08-27] MEDS ORDERED: DEXAMETHASONE SOD PHOSPHATE 10 MG/ML 1 ML VIAL IV STA (17:38)
--- NOTE | 2021-08-27 17:38 | CT ---
EXAMINATION TYPE: CT brain wo con for TPA DATE OF EXAM: 08/27/2021 COMPARISON: None HISTORY: Left sided weakness. Headache. History of melanoma. TECHNIQUE: CT scan of the head performed without contrast CT DLP: 1075.8 mGycm Automated exposure control for dose reduction was used. FINDINGS: There is a geographic area of low attenuation involving the right parietal lobe. The reyez-white matte r differentiation is preserved. There is a questionable 1.0 x 0.9 x 0.7 cm low attenuating cortical based mass in the right posterior parietal lobe. There is a apparent 1.3 x 1.3 x 0.7 cm lesion with attenuation similar to that of the cortex within t his area of low attenuation. There is a apparent 1.5 x 0.8 x 0.7 cm low attenuating lesion in the med ial aspect of the right parietal lobe within the cortex. There is an approximate leftward 3 mm midline shift mild effacement of the inferior and posterior hor ns of the right ventricle. Basilar cisterns are maintained. The ventricles are not dilated. No extra-axial fluid collections seen. No acute orbital, osseous or soft tissue abnormality. Paranasal sinuses and mastoid air cells are well aerated. IMPRESSION: 1. RIGHT PARIETAL LOBE EDEMA WITH LEFTWARD 3 MM MIDLINE SHIFT. 2. MAINTAINED REYEZ-WHITE MATTER DIFFERENTIATION. 3. AREA OF INCREASED ATTENUATION WITHIN THE EDEMA SUGGESTS HEMORRHAGE. 4. CORTICAL BASED MASSES /LESIONS IN THE RIGHT PARIETAL POSTERIORLY AND MEDIALLY DESCRIBED IN BODY OF REPORT. DIFFERENTIAL DIAGNOSIS FOR THE FINDINGS INCLUDES INTRACRANIAL MALIGNANCY/METASTATIC DISEASE, PRIMARY BRAIN NEOPLASM, INTRACRANIAL ABSCESSES, THOUGH LESS FAVORED TO BE THE ETIOLOGY A SUBACUTE STROKE DEVORAH OT BE ENTIRELY EXCLUDED. CONTRAST ENHANCED BRAIN MRI RECOMMENDED. Dr. Fisher called Jose Raul BRANTLEY with above results @ 5:33pm 08/27/2021
[2021-08-27] MEDS ORDERED: ONDANSETRON 4 MG/2 ML VIAL IVP STA (17:44)
[2021-08-27] MEDS ORDERED: MORPHINE SULFATE 4 MG/ML SYRINGE IVP STA (17:44)
--- NOTE | 2021-08-27 17:50 | CT ---
EXAMINATION TYPE: CT angio head neck DATE OF EXAM: 08/27/2021 HISTORY: Left sided weakness. Headache. COMPARISON: None CT DLP: 413.5 mGycm. Automated Exposure Control for Dose Reduction was Utilized. TECHNIQUE: CTA scan of the neck is performed with IV Contrast, patient injected with 65 mL of Isovue 370, axial images are obtained, coronal and sagittal reformatted images are reviewed. 3D reconstruct ed images are created on an independent workstation and reviewed. FINDINGS: Carotid/Vascular Structures: Common carotid artery appears to originate from the brachiocephalic cayla ry. Left vertebral artery appears to originate directly from the arch of the aorta. Left vertebral ar shila is dominant. Common carotid arteries are patent without significant stenosis or occlusion. Both internal and exter nal carotid arteries are patent without significant stenosis or occlusion. Severely narrowed fourth segment of the right vertebral artery within the foramen magnum. The basilar artery is patent. The right anterior cerebral artery appears to originate from the left internal carotid artery bifurca tion. Both anterior cerebral arteries are patent. Both middle cerebral arteries are patent. Both posterior cerebral arteries are patent though diminished in diameter. Superior sagittal sinus, straight and sigmoid sinuses appear patent Other: There is a heterogeneously enhancing mass in the medial aspect of the right parietal lobe armaan uring up to 4 cm. There is edema in the right parietal lobe better demonstrated on noncontrast enhanc ed CT of the head. There is focal area increased attenuation without contrast extravasation in the lo w attenuating geographic region the right parietal lobe could suggest hemorrhage. There is a peripher ally enhancing right parietal lobe lesion measuring 1.9 x 1.5 cm which appears to be cortical based. There is a 3 mm leftward midline shift. There is partial effacement of the anterior and posterior hor ns of the right lateral ventricle. No contrast extravasation is seen. The basilar cisterns are maintained. The reyez-white matter differe ntiation is preserved. No extra-axial fluid collection seen. IMPRESSION: 1. No arterial occlusion seen. 2. Severely narrowed fourth segment of the right vertebral artery. 3. Left vertebral artery origin from the aortic arch. 4. Right anterior cerebral artery originates from the left internal carotid artery. 5. There are at least 2 masses in the right parietal lobe the largest measures up to 4 cm with right parietal lobe edema and maintained reyez-white matter differentiation and left 3 mm midline shift. Fin ding concerning for intracranial masses, metastasis, primary malignancy. 6. One of the lesion seen in the right parietal lobe has peripheral enhancement and central low atten uation and may represent an abscess. 7. Focal area of increased attenuation (without contrast extravasation) within the right parietal lob e edema could represent small hemorrhage. NASCET criteria was used in interpretation of this exam? Communication about critical results were given to Dr. Blunt and dictated on noncontrast CT of the head from the same day.
[2021-08-27] MEDS ORDERED: HYDROmorphone 1 MG/ML 1 ML SYRINGE IVP STA (18:18)
[2021-08-27] MEDS ORDERED: LORazepam 2 MG/ML INJ IV STA (18:59)
[2021-08-27 19:49] VITALS: BP 154/96; PULSE 83
--- NOTE | 2021-08-27 20:08 | XR ---
EXAMINATION TYPE: XR chest 2V DATE OF EXAM: 08/27/2021 COMPARISON: 08/07/2021 HISTORY: 50 years Female. STUDY INDICATION GIVEN: altered mental status . TECHNIQUE: Frontal lateral chest radiographs IMPRESSION: No focal airspace disease, pneumothorax or pleural effusion. Cardiomediastinal silhouette within norm al limit. No acute osseous abnormality. Cholecystectomy clips seen in the right upper quadrant.No sig nificant change since prior.
[2021-08-28] MEDS ORDERED: ENOXAPARIN 40 MG/0.4 ML SYRINGE SQ SCH (09:00)
== END 2021-08-27 19:45 | disposition other institution (70) ==
LOC: EC 16:22 → UNDOADMOB 17:27 → 3SCARD 17:27 → EC 19:45
DX: C79.31 Secondary malignant neoplasm of brain (principal); J45.909 Unspecified asthma, uncomplicated; K21.9 Gastro-esophageal reflux disease without esophagitis; Z79.899 Other long term (current) drug therapy; Z79.51 Long term (current) use of inhaled steroids; Z83.3 Family history of diabetes mellitus; Z85.820 Personal history of malignant melanoma of skin; Z90.49 Acquired absence of other specified parts of digestive tract
CPT/HCPCS: 99291; 96374; 96375 ×4; 36415; 93005; 80053; 84484; 85025; 85610; 85730; 87635; 71046; 70496; 70450; 70498; J2060; J2270; J1100; J2405; J1170; Q9967

== ENCOUNTER 2021-10-21 11:11 | Inpatient (IN) | payer BC ==
[2021-10-21] MEDS ORDERED: methylPREDNISolone SOD SUCCI 125 MG/2 ML VIAL IV STA (11:40)
[2021-10-21] MEDS ORDERED: IPRATROPIUM-ALBUTEROL 3 ML NEB INHALATION STA (11:40)
[2021-10-21 12:01] LABS: Basophils % (A) 1 %; Eosinophils % (A) 0 %; HCT 47.5 % (34.0-46.0); HGB 15.6 gm/dL (11.4-16.0); Lymphocytes # (A) 1.1 k/uL (1.0-4.8); Lymphocytes % (A) 12 %; MCH 30.8 pg (25.0-35.0); MCHC 32.8 g/dL (31.0-37.0); Mean Platelet Volume 7.3; Monocytes # (A) 0.3 k/uL (0-1.0); Monocytes % (A) 3 %; Neutrophils # (A) 7.8 k/uL (1.3-7.7); Neutrophils % (A) 84 %; Platelet Count 249 k/uL (150-450); RBC 5.05 m/uL (3.80-5.40); WBC 9.3 k/uL (3.8-10.6)
[2021-10-21 12:08] LABS: Chloride 103 mmol/L (98-107)
[2021-10-21 12:11] LABS: ALT 50 U/L (4-34); AST 49 U/L (14-36); African American GFR (CKD) >90 (>60 ml/min/1.73 sqM); Albumin 4.1 g/dL (3.5-5.0); Alkaline Phosphatase 112 U/L (38-126); Anion Gap 9 mmol/L; Blood Urea Nitrogen 17 mg/dL (7-17); Calcium 9.6 mg/dL (8.4-10.2); Carbon Dioxide 26 mmol/L (22-30); Glucose 98 mg/dL (74-99); Non-African American GFR(CKD) 83 (>60 ml/min/1.73 sqM); Potassium 4.1 mmol/L (3.5-5.1); Sodium 138 mmol/L (137-145); Total Bilirubin 0.7 mg/dL (0.2-1.3); Total Protein 7.7 g/dL (6.3-8.2)
[2021-10-21] MEDS ORDERED: ALBUTEROL HFA INHALER INHALATION STA (12:18)
[2021-10-21 12:28] LABS: INR 0.9 (<1.2); Prothrombin Time 9.5 sec (9.0-12.0)
[2021-10-21 12:31] LABS: Partial Thromboplastin Time 21.3 sec (22.0-30.0)
--- NOTE | 2021-10-21 12:32 | XR ---
EXAMINATION TYPE: XR chest 2V DATE OF EXAM: 10/21/2021 COMPARISON: 6 08/27/2021 INDICATION: Difficulty breathing short of breath asthma TECHNIQUE: Frontal and lateral views of the chest are obtained. FINDINGS: The heart size is normal. The pulmonary vasculature is normal. Mild infiltrates at the right lower lobe. Some milder infiltrate may be in the left base. Correlate f or atelectasis. Pneumonia should be considered. Atypical pneumonia should be considered. IMPRESSION: 1. Mild bibasilar infiltrates. Atelectasis and pneumonia as well as atypical pneumonia could be consi dered.
--- NOTE | 2021-10-21 13:36 | ED ---
General Adult HPI - General Chief complaint: Shortness of Breath Stated complaint: ZAIDA Time Seen by Provider: 10/21/21 11:12 Source: patient, EMS, RN notes reviewed Mode of arrival: EMS Limitations: no limitations - History of Present Illness Initial comments: This a 51-year-old female presents emergency Department chief complaint shortness of breath. Patient is brought in via EMS was found to have a pulse ox of 78 at home. Patient states she has severe asthma states that she has issues a year. Patient had no reported fever. Patient did have surgery for glioblastoma recently. Patient denies any productive cough no GI symptoms. No sick contacts. - Related Data Home Medications Medication Instructions Recorded Confirmed Beclomethasone Dipropionate [Qvar 2 puff INHALATION RT-BID 12/28/18 10/21/21 80 mcg] Mometasone/Formoterol [Dulera 200 2 puff INHALATION RT-BID 12/28/18 10/21/21 Mcg-5 Mcg Inhaler] Montelukast [Singulair] 10 mg PO HS 12/28/18 10/21/21 Atorvastatin [Lipitor] 10 mg PO HS 08/07/21 10/21/21 Baclofen [Lioresal] 20 mg PO QID 08/07/21 10/21/21 EPINEPHrine (Auto Inject) [Epipen] 0.3 mg IM ONCE PRN 08/07/21 10/21/21 Omalizumab [Xolair] 150 mg SQ Q14D 08/07/21 10/21/21 Omeprazole 20 mg PO AC-BID 08/07/21 10/21/21 ALPRAZolam [Xanax] 0.25 mg PO BID PRN 10/21/21 10/21/21 Acetaminophen Tab [Tylenol] 650 mg PO Q6H PRN 10/21/21 10/21/21 Albuterol Sulfate [Ventolin HFA] 1 - 2 puff INHALATION RT-Q4H PRN 10/21/21 10/21/21 Butalb/APAP/Caff 50-325-40Mg 1 tab PO Q4H PRN 10/21/21 10/21/21 [Fioricet 50-325-40] Hydrocortisone [Cortef] 5 mg PO HS 10/21/21 10/21/21 Hydrocortisone [Cortef] 15 mg PO QAM 10/21/21 10/21/21 levETIRAcetam [Keppra] 500 mg PO BID 10/21/21 10/21/21 traZODone HCL [Desyrel] 50 mg PO HS 10/21/21 10/21/21 Allergies Allergy/AdvReac Type Severity Reaction Status Date / Time No Known Allergies Allergy Verified 10/21/21 12:07 Review of Systems ROS Statement: Those systems with pertinent positive or pertinent negative responses have been documented in the HPI. ROS Other: All systems not noted in ROS Statement are negative. Past Medical History Past Medical History: Asthma, Cancer, GERD/Reflux Additional Past Medical History / Comment(s): ESOPHAGEAL MOTILITY problem, skin cancer, kidney stones, SOB w/exertion History of Any Multi-Drug Resistant Organisms: None Reported Past Surgical History: Adenoidectomy, Cholecystectomy, Tonsillectomy, Tubal Ligation Additional Past Surgical History / Comment(s): EGD, manometry,motility study,. LIPOMA LT ARM, RT ARM-REMOVAL BLUE NEVI -MALIGNANT, MELANOMA REMOVED FROM STOMACH. KIDNEY STONE-LITHOTRIPSY, bronchoscopy 2018, egd colonoscopy, melanoma removed Past Anesthesia/Blood Transfusion Reactions: No Reported Reaction Past Psychological History: No Psychological Hx Reported Smoking Status: Never smoker Past Alcohol Use History: None Reported Past Drug Use History: None Reported - Past Family History Mother Family Medical History: Cancer Additional Family Medical History / Comment(s): PHLEBITIS Father Family Medical History: Cancer, Diabetes Mellitus General Exam Limitations: no limitations General appearance: alert, in no apparent distress Head exam: Present: atraumatic, normocephalic, normal inspection Eye exam: Present: normal appearance, PERRL, EOMI. Absent: scleral icterus, conjunctival injection, periorbital swelling ENT exam: Present: normal exam, mucous membranes moist Neck exam: Present: normal inspection. Absent: tenderness, meningismus, lymphadenopathy Respiratory exam: Present: wheezes, decreased breath sounds. Absent: normal lung sounds bilaterally, respiratory distress, rales, rhonchi, stridor Cardiovascular Exam: Present: normal rhythm, tachycardia, normal heart sounds. Absent: systolic murmur, diastolic murmur, rubs, gallop, clicks Neurological exam: Present: alert, oriented X3 Skin exam: Present: warm, dry, intact, normal color. Absent: rash Course Vital Signs 1210/21/21 10/21/21 11:15 11:24 12:37 Temperature 98.0 F Pulse Rate 118 H 113 H Respiratory 20 20 24 Rate Blood Pressure 134/93 107/71 O2 Sat by Pulse 89 L 93 L Oximetry Medical Decision Making - Medical Decision Making 51-year-old female presented for dyspnea. Patient will be COVID-19 positive. Patient does have hypoxia, x-ray shows bibasilar infiltrates. Patient has known severe asthma will be admitted for further treatment and management and consultation to pulmonology. - Lab Data Result diagrams: 10/21/21 11:43 10/21/21 11:43 Lab Results 10/21/21 10/21/21 10/21/21 Range/Units 11:43 11:43 11:43 WBC 9.3 (3.8-10.6) k/uL RBC 5.05 (3.80-5.40) m/uL Hgb 15.6 (11.4-16.0) gm/dL Hct 47.5 H (34.0-46.0) % MCV 94.0 (80.0-100.0) fL MCH 30.8 (25.0-35.0) pg MCHC 32.8 (31.0-37.0) g/dL RDW 15.0 (11.5-15.5) % Plt Count 249 (150-450) k/uL MPV 7.3 Neutrophils % 84 % Lymphocytes % 12 % Monocytes % 3 % Eosinophils % 0 % Basophils % 1 % Neutrophils # 7.8 H (1.3-7.7) k/uL Lymphocytes # 1.1 (1.0-4.8) k/uL Monocytes # 0.3 (0-1.0) k/uL Eosinophils # 0.0 (0-0.7) k/uL Basophils # 0.0 (0-0.2) k/uL PT 9.5 (9.0-12.0) sec INR 0.9 (<1.2) APTT 21.3 L (22.0-30.0) sec Sodium 138 (137-145) mmol/L Potassium 4.1 (3.5-5.1) mmol/L Chloride 103 (98-107) mmol/L Carbon Dioxide 26 (22-30) mmol/L Anion Gap 9 mmol/L BUN 17 (7-17) mg/dL Creatinine 0.82 (0.52-1.04) mg/dL Est GFR (CKD-EPI)AfAm >90 (>60 ml/min/1.73 sqM) Est GFR (CKD-EPI)NonAf 83 (>60 ml/min/1.73 sqM) Glucose 98 (74-99) mg/dL Plasma Lactic Acid [place] (0.7-2.0) mmol/L Calcium 9.6 (8.4-10.2) mg/dL Total Bilirubin 0.7 (0.2-1.3) mg/dL AST 49 H (14-36) U/L ALT 50 H (4-34) U/L Alkaline Phosphatase 112 (38-126) U/L Troponin I (0.000-0.034) ng/mL Total Protein 7.7 (6.3-8.2) g/dL Albumin 4.1 (3.5-5.0) g/dL Coronavirus (PCR) (Not Detectd) 10/21/21 10/21/21 10/21/21 Range/Units 11:43 11:43 11:43 WBC (3.8-10.6) k/uL RBC (3.80-5.40) m/uL Hgb (11.4-16.0) gm/dL Hct (34.0-46.0) % MCV (80.0-100.0) fL MCH (25.0-35.0) pg MCHC (31.0-37.0) g/dL RDW (11.5-15.5) % Plt Count (150-450) k/uL MPV Neutrophils % % Lymphocytes % % Monocytes % % Eosinophils % % Basophils % % Neutrophils # (1.3-7.7) k/uL Lymphocytes # (1.0-4.8) k/uL Monocytes # (0-1.0) k/uL Eosinophils # (0-0.7) k/uL Basophils # (0-0.2) k/uL PT (9.0-12.0) sec INR (<1.2) APTT (22.0-30.0) sec Sodium (137-145) mmol/L Potassium (3.5-5.1) mmol/L Chloride (98-107) mmol/L Carbon Dioxide (22-30) mmol/L Anion Gap mmol/L BUN (7-17) mg/dL Creatinine (0.52-1.04) mg/dL Est GFR (CKD-EPI)AfAm (>60 ml/min/1.73 sqM) Est GFR (CKD-EPI)NonAf (>60 ml/min/1.73 sqM) Glucose (74-99) mg/dL Plasma Lactic Acid [place] 1.8 (0.7-2.0) mmol/L Calcium (8.4-10.2) mg/dL Total Bilirubin (0.2-1.3) mg/dL AST (14-36) U/L ALT (4-34) U/L Alkaline Phosphatase (38-126) U/L Troponin I <0.012 (0.000-0.034) ng/mL Total Protein (6.3-8.2) g/dL Albumin (3.5-5.0) g/dL Coronavirus (PCR) Detected A (Not Detectd) Disposition Clinical Impression: COVID-19, Hypoxia Disposition: ADMITTED IP TO THIS HOSP Condition: Serious Referrals: Caity Maddox MD [Primary Care Provider] - 1-2 days
[2021-10-21] MEDS ORDERED: ONDANSETRON 4 MG/2 ML VIAL IVP PRN (13:40)
[2021-10-21] MEDS ORDERED: NALOXONE 0.4 MG/ML 1 ML VIAL IV PRN (13:40)
[2021-10-21] MEDS ORDERED: BUTALB/APAP/CAFF 50-325-40MG TAB PO PRN (16:01)
[2021-10-21] MEDS: SODIUM CHLORIDE 0.9% 1,000 ML IV SCH (16:08)
[2021-10-21] MEDS ORDERED: ENOXAPARIN 40 MG/0.4 ML SYRINGE SQ SCH (16:15)
[2021-10-21] MEDS: PANTOPRAZOLE 40 MG TABLET PO SCH (16:33)
[2021-10-21] MEDS: ENOXAPARIN 40 MG/0.4 ML SYRINGE SQ SCH (16:33)
[2021-10-21] MEDS: ALBUTEROL HFA INHALER INHALATION PRN ×2 (17:20→21:20)
--- NOTE | 2021-10-21 17:46 | P.CNPUL ---
History of Present Illness Consult date: 10/21/21 Reason for consult: dyspnea, pneumonia History of present illness: 57-year-old here patient presented to the emergency department because of wors ening shortness of breath. The patient was found at home by EMS to be quite hypoxic and apparently her pulse ox was 78% at home. At the exact timing of her sickness cannot be really established as the patient has a chronic illness with glioblastoma multiforme in she has undergone a recent craniotomy and she was dealing with a nonhealing wound on her scalp. She has not been vaccinated for COVID 19. She is known to have chronic bronchial asthma, severe persistent in nature and the patient has been maintained on Dulera/Qvar and addition to Singulair and she has been also receiving Xolair injections on outpatient basis. Her other comorbid conditions also include history of malignant melanoma, hyperlipidemia, acid reflux and the patient had a recent neuro evaluation including a CAT scan of the brain that revealed evidence of multiple lesions with cerebral edema. She was scheduled to undergo further evaluation with neurosurgery. She was also experiencing some mucus and left side of the body and it left facial droop among other neurological deficits. This neuro evaluation was supposed to be done at [facility]. Note that the patient also has history of malignant melanoma. However, the Th neurosurgical findings are consistent with glioblastoma. I'm not sure if the patient had complete resection of this tumor. She is underwent a recent craniotomy. Also, the patient has been maintained on Decadron 4 mg twice a day on outpatient basis In the emergency, the patient tested positive for COVID 19. The patient also had a chest x-ray that showed bilateral pulmonary infiltrates consistent with community related pneumonia. Her white cell count was at 9.3 with hemoglobin of 15.6 and a platelet count of 249. Her BM was at 70 with a creatinine of 0.8 and the sodium level 138.. Glucose was 98. Normal coagulation profile. Normal LFTs. Her troponin was less than 0.01. The patient was accordingly hospitalized. She was started on IV fluids. I this point in time, the patient on several liters about 2 by nasal cannula with a pulse ox of 93%. Note that t he patient was already taken steroids on outpatient basis and I believe she was transitioned to Cortef. This switch was done due to a concern a nonhealing wound on her scalp. Review of Systems Constitutional-Negative, fatigue and weakness and shortness of breath Eyes-Negative ENMT-Negative Cardiovascular-Negative Respiratory- Negative, chronic shortness of breath with interval worsening in addition to hypoxemia Gastrointestinal-Negative Genitourinary-Negative Musculoskeletal-Negative Skin-Negative [id number] weakness, lack of coordination on the left side, left facial droop. Endocrine-Negative Psychiatric-Negative Hematologic/Lymphatic-Negative Allergic/Immunologic-Negative Past Medical History Past Medical History: Asthma, Cancer, GERD/Reflux Additional Past Medical History / Comment(s): Brain tumor/glioblastoma, history of melanoma, history of esophageal dysmotility, history of kidney stones, hyperlipidemia, severe persistent bronchial asthma History of Any Multi-Drug Resistant Organisms: None Reported Past Surgical History: Adenoidectomy, Cholecystectomy, Tonsillectomy, Tubal Ligation Additional Past Surgical History / Comment(s): EGD, manometry,motility study,. LIPOMA LT ARM, RT ARM-REMOVAL BLUE NEVI -MALIGNANT, MELANOMA REMOVED FROM STOMACH. KIDNEY STONE-LITHOTRIPSY, bronchoscopy 2018, egd colonoscopy, melanoma removed Past Anesthesia/Blood Transfusion Reactions: No Reported Reaction Past Psychological History: No Psychological Hx Reported Smoking Status: Never smoker Past Alcohol Use History: None Reported Past Drug Use History: None Reported - Past Family History Mother Family Medical History: Cancer Additional Family Medical History / Comment(s): PHLEBITIS Father Family Medical History: Cancer, Diabetes Mellitus Medications and Allergies Home Medications Medication Instructions Recorded Confirmed Type Beclomethasone Dipropionate [Qvar 2 puff INHALATION RT-BID 12/28/18 10/21/21 History 80 mcg] Mometasone/Formoterol [Dulera 200 2 puff INHALATION RT-BID 12/28/18 10/21/21 History Mcg-5 Mcg Inhaler] Montelukast [Singulair] 10 mg PO HS 12/28/18 10/21/21 History Atorvastatin [Lipitor] 10 mg PO HS 08/07/21 10/21/21 History Baclofen [Lioresal] 20 mg PO QID 08/07/21 10/21/21 History EPINEPHrine (Auto Inject) [Epipen] 0.3 mg IM ONCE PRN 08/07/21 10/21/21 History Omalizumab [Xolair] 150 mg SQ Q14D 08/07/21 10/21/21 History Omeprazole 20 mg PO AC-BID 08/07/21 10/21/21 History ALPRAZolam [Xanax] 0.25 mg PO BID PRN 10/21/21 10/21/21 History Acetaminophen Tab [Tylenol] 650 mg PO Q6H PRN 10/21/21 10/21/21 History Albuterol Sulfate [Ventolin HFA] 1 - 2 puff INHALATION RT-Q4H PRN 10/21/21 10/21/21 History Butalb/APAP/Caff 50-325-40Mg 1 tab PO Q4H PRN 10/21/21 10/21/21 History [Fioricet 50-325-40] Hydrocortisone [Cortef] 5 mg PO HS 10/21/21 10/21/21 History Hydrocortisone [Cortef] 15 mg PO QAM 10/21/21 10/21/21 History levETIRAcetam [Keppra] 500 mg PO BID 10/21/21 10/21/21 History traZODone HCL [Desyrel] 50 mg PO HS 10/21/21 10/21/21 History Allergies Allergy/AdvReac Type Severity Reaction Status Date / Time No Known Allergies Allergy Verified 10/21/21 12:07 Physical Exam Vitals: Vital Signs Temp Pulse Resp BP Pulse Ox 10/21/21 12:37 113 H 24 107/71 93 L 10/21/21 11:24 20 10/21/21 11:15 98.0 F 118 H 20 134/93 89 L Intake and Output 10/21/21 10/21/21 10/21/21 06:59 14:59 22:59 Other: Weight 79.379 kg General appearance: alert, in no apparent distress, patient is having some mild respiratory distress and the patient is currently on 7 L of oxygen by nasal cannula Head exam: Present: atraumatic, normocephalic, normal inspection Eye exam: Present: normal appearance, PERRL, EOMI. Absent: scleral icterus, conjunctival injection, periorbital swelling ENT exam: Present: normal exam, mucous membranes moist Neck exam: Present: normal inspection. Absent: tenderness, meningismus, lymphadenopathy Respiratory exam: Present: wheezes, decreased breath sounds. Absent: normal lung sounds bilaterally, respiratory distress, rales, rhonchi, stridor Cardiovascular Exam: Present: normal rhythm, tachycardia, normal heart sounds. Absent: systolic murmur, diastolic murmur, rubs, gallop, clicks Neurological exam: Present: alert, oriented X3, the patient has a healed the scalp wound postcraniotomy Skin exam: Present: warm, dry, intact, normal color. Absent: rash Results - Laboratory Findings CBC and BMP: 10/21/21 11:43 10/21/21 11:43 PT/INR, D-dimer PT 9.5 sec (9.0-12.0) 10/21/21 11:43 INR 0.9 (<1.2) 10/21/21 11:43 Abnormal lab findings: Abnormal Labs 10/21/21 10/21/21 10/21/21 11:43 11:43 11:43 Hct 47.5 H Neutrophils # 7.8 H APTT 21.3 L AST 49 H ALT 50 H Coronavirus (PCR) 10/21/21 11:43 Hct Neutrophils # APTT AST ALT Coronavirus (PCR) Detected A - Diagnostic Findings Chest x-ray: image reviewed Assessment and Plan Plan: 1 acute COVID 19 related pneumonia with secondary respiratory distress and hypoxemia unable to establish the exact timing of her symptoms as the patient has been chronically ill. For that reason, I would suggest putting on a combination of Decadron and Remdesivir. I would like to give her the benefit of the doubt of Remdesivir treatment and combination with Decadron. 2 acute hypoxic respiratory failure secondary to above and the patient is currently on 7 L approximately nasal cannula. The patient's chest x-ray showing limited lower lobe pulmonary infiltrates 3 severe persistent bronchial asthma managed on outpatient basis with a combination of Dulera/Qvar in addition to Singulair and Xolair injections. 4 history of glioblastoma of the brain, as the patient was found to have a mass involving the right parietal lobe of the brain, resected surgically. The patient has developed left-sided paresis. The patient has a sacral 12 the lesions and she has 2 additional lesions and she is supposed to receive radiation therapy at a later stage. She had issues with nonhealing scalp wound and for that reason the radiation was delayed. Her wound is currently healed. 5 history of melanoma of the skin, resected 6 hyperlipidemia 7 history of kidney stones Plan Titrate the oxygen flow to maintain a saturation above 90% Put the patient on Decadron 6 mg IV every 24 hours We will initiate Remdesivir treatment as the exact timing of her symptoms cannot be really established. We'll give her the benefit of the doubt accordingly. Put the patient on Lovenox 40 mg subcu for DVT prophylaxis Check d-dimer Check pro calcitonin level Check LDH and CRP In view of her increased risk of DVT and pulmonary embolism, it'll be worthwhile to do a CT angiogram of the patient's chest to rule out pulmonary embolism. Resume all medications The Qvar/Dulera will be replaced with Symbicort during her hospital stay and the patient will be given Ventolin as needed basis IV fluid hydration Lovenox 40 mg subcu prophylaxis We'll continue to follow
[2021-10-21] MEDS ORDERED: REMDESIVIR 200 MG in SODIUM CHLORIDE 0.9% 250 ML IVPB ONE (19:00)
[2021-10-21] MEDS ORDERED: BECLOMETHASONE DIPROPIONATE INHALATION SCH (20:00)
[2021-10-21] MEDS ORDERED: HYDROCORTISONE 10 MG TAB PO SCH (21:00)
[2021-10-21] MEDS: SYMBICORT 160-4.5 MCG INHALER INHALATION SCH (21:20)
[2021-10-21] MEDS: FLUTICASONE 110 MCG INHALER INHALATION SCH (21:21)
[2021-10-21] MEDS: ATORVASTATIN 10 MG TAB PO SCH (21:38)
[2021-10-21] MEDS: traZODone HCL 50 MG TAB PO SCH (21:39)
[2021-10-21] MEDS: MONTELUKAST 10 MG TAB PO SCH (21:39)
[2021-10-21] MEDS: levETIRAcetam 500 MG TAB PO SCH (21:39)
--- NOTE | 2021-10-21 23:39 | P.HPIM ---
History of Present Illness H&P Date: 10/21/21 Chief Complaint: Shortness of breath Patient is a 51-year-old female with a known history of brain tumor/glioblastoma with the recent surgery, asthma, GERD and history of esophageal dysmotility, hyperlipidemia and other medical problems presents ER with complaints of shortne ss of breath. Patient has been having shortness of breath worsening for the past 10-12 days. Patient had recent brain surgery. EMS was called due to worsening symptoms and found to be hypoxic with pulse ox 78%. Patient was brought to the hospital for evaluation. Otherwise patient denied any fever or chills. No nausea vomiting or abdominal pain or diarrhea. No loss of taste or smell sensation. Denied any sick contacts. Patient was tested positive for COVID-19 infection. Patient was placed on nasal cannula oxygen at 6 L. Chest x-ray showed mild bibasilar infiltrates. Atelectasis and pneumonia as well as atypical pneumonia could be considered. Next and laboratory data showed the recent 9.3 hemoglobin 10.6 and platelets 249 Sodium 138 potassium 4.1 chloride 103 BUN 17 and creatinine 0.82 AST 49 ALT 50, LDH 575 ferritin 559 d-dimer 0.67 and CRP 6.6 Progress toward level is 0.12 COVID-19 PCR detected. Review of Systems Constitutional: Patient denies any fever or chills . Generalized weakness and fatigue.. Abdomen: Patient denied nausea vomiting and diarrhea and abdominal pain. Cardiovascular: Patient denies any chest pain or short of breath no palpitations. Respiratory: Cough without sputum production and shortness of breath Neurologic: Patient denied any numbness or tingling headache. Musculoskeletal: Patient denies any complaints of joint swelling or deformity. Skin: Negative Psychiatric: Negative Endocrine: No heat or cold intolerance. No recent weight gain. Genitourinary: No dysuria or hematuria. All other 14 point ROS negative except the above Past Medical History Past Medical History: Asthma, Cancer, GERD/Reflux Additional Past Medical History / Comment(s): Brain tumor/glioblastoma, history of melanoma, history of esophageal dysmotility, history of kidney stones, hyperlipidemia, severe persistent bronchial asthma History of Any Multi-Drug Resistant Organisms: None Reported Past Surgical History: Adenoidectomy, Cholecystectomy, Tonsillectomy, Tubal Ligation Additional Past Surgical History / Comment(s): EGD, manometry,motility study,. LIPOMA LT ARM, RT ARM-REMOVAL BLUE NEVI -MALIGNANT, MELANOMA REMOVED FROM STOMACH. KIDNEY STONE-LITHOTRIPSY, bronchoscopy 2018, egd colonoscopy, melanoma removed Past Anesthesia/Blood Transfusion Reactions: No Reported Reaction Past Psychological History: No Psychological Hx Reported Smoking Status: Never smoker Past Alcohol Use History: None Reported Past Drug Use History: None Reported - Past Family History Mother Family Medical History: Cancer Additional Family Medical History / Comment(s): PHLEBITIS Father Family Medical History: Cancer, Diabetes Mellitus Medications and Allergies Home Medications Medication Instructions Recorded Confirmed Type Beclomethasone Dipropionate [Qvar 2 puff INHALATION RT-BID 12/28/18 10/21/21 History 80 mcg] Mometasone/Formoterol [Dulera 200 2 puff INHALATION RT-BID 12/28/18 10/21/21 History Mcg-5 Mcg Inhaler] Montelukast [Singulair] 10 mg PO HS 12/28/18 10/21/21 History Atorvastatin [Lipitor] 10 mg PO HS 08/07/21 10/21/21 History Baclofen [Lioresal] 20 mg PO QID 08/07/21 10/21/21 History EPINEPHrine (Auto Inject) [Epipen] 0.3 mg IM ONCE PRN 08/07/21 10/21/21 History Omalizumab [Xolair] 150 mg SQ Q14D 08/07/21 10/21/21 History Omeprazole 20 mg PO AC-BID 08/07/21 10/21/21 History ALPRAZolam [Xanax] 0.25 mg PO BID PRN 10/21/21 10/21/21 History Acetaminophen Tab [Tylenol] 650 mg PO Q6H PRN 10/21/21 10/21/21 History Albuterol Sulfate [Ventolin HFA] 1 - 2 puff INHALATION RT-Q4H PRN 10/21/21 10/21/21 History Butalb/APAP/Caff 50-325-40Mg 1 tab PO Q4H PRN 10/21/21 10/21/21 History [Fioricet 50-325-40] Hydrocortisone [Cortef] 5 mg PO HS 10/21/21 10/21/21 History Hydrocortisone [Cortef] 15 mg PO QAM 10/21/21 10/21/21 History levETIRAcetam [Keppra] 500 mg PO BID 10/21/21 10/21/21 History traZODone HCL [Desyrel] 50 mg PO HS 10/21/21 10/21/21 History Allergies Allergy/AdvReac Type Severity Reaction Status Date / Time No Known Allergies Allergy Verified 10/21/21 12:07 Physical Exam Vitals: Vital Signs Temp Pulse Resp BP Pulse Ox 10/21/21 12:37 113 H 24 107/71 93 L 10/21/21 11:24 20 10/21/21 11:15 98.0 F 118 H 20 134/93 89 L Intake and Output 10/21/21 10/21/21 10/21/21 06:59 14:59 22:59 Other: Weight 79.379 kg PHYSICAL EXAMINATION: Patient is lying in the bed comfortably, no acute distress, awake alert and oriented.. HEENT: Normocephalic. Neck is supple. Pupils reactive. Nostrils clear. Oral cavity is moist. Neck reveals no JVD, carotid bruits, or thyromegaly. CHEST EXAMINATION: Trachea is central. Symmetrical expansion. Expiratory wheeze. Nonlabored breathing. Scattered rhonchi.. CARDIAC: Normal S1, S2 with no gallops. No murmurs ABDOMEN: Soft. Bowel sounds normal. No organomegaly. No abdominal bruits. Extremities: reveal no edema. No clubbing or cyanosis Neurologically awake, alert, oriented x3 with well-coordinated movements. No focal deficits noted Skin: No rash or skin lesions. Psychiatric: Coperative. Nonsuicidal, anxious. Musculoskeletal: No joint swelling or deformity. Normal range of motion. Results CBC & Chem 7: 10/22/21 07:35 10/22/21 07:35 Labs: Abnormal Lab Results - Last 24 Hours (Table) 10/21/21 10/21/21 10/21/21 Range/Units 11:43 11:43 11:43 Hct 47.5 H (34.0-46.0) % Neutrophils # 7.8 H (1.3-7.7) k/uL APTT 21.3 L (22.0-30.0) sec AST 49 H (14-36) U/L ALT 50 H (4-34) U/L Coronavirus (PCR) (Not Detectd) 10/21/21 Range/Units 11:43 Hct (34.0-46.0) % Neutrophils # (1.3-7.7) k/uL APTT (22.0-30.0) sec AST (14-36) U/L ALT (4-34) U/L Coronavirus (PCR) Detected A (Not Detectd) Thrombosis Risk Factor Assmnt - DVT/VTE Prophylaxis DVT/VTE Prophylaxis: Pharmacologic Prophylaxis ordered Assessment and Plan Assessment: Acute hypoxic respiratory failure secondary to COVID-19 pneumonia Acute COVID-19 pneumonia. Severe persistent asthma on outpatient follow up with pulmonary and currently on Qvar, Singulair and insulin injections. History of right sided glioblastoma of the brain status post recent surgery about a month ago. Does have left-sided addresses secondary to that. History of melanoma the skin resected Hyperlipidemia History of renal stones GERD History of esophageal dysmotility DVT prophylaxis. Plan: Patient will be continued on dexamethasone 6 mg daily, Lovenox subcu and multivitamins. Continued with oxygen supplementation to keep the saturation above 92%. Continue the home medications and follow closely. Follow up intermittently markings. Pulmonary was consulted. Prognosis is guarded this time. Time with Patient: Greater than 30
[2021-10-22 01:30] LABS: C Reactive Protein 6.6 mg/dL (0.00-0.80)
[2021-10-22] MEDS: SODIUM CHLORIDE 0.9% 1,000 ML IV SCH ×2 (04:35→17:34)
[2021-10-22] MEDS: ASCORBIC ACID 500 MG TAB PO SCH (06:55)
[2021-10-22] MEDS: PANTOPRAZOLE 40 MG TABLET PO SCH (06:55)
[2021-10-22] MEDS: CHOLECALCIFEROL 25 MCG (1000 IU) TABLET PO SCH (06:55)
[2021-10-22] MEDS: DEXAMETHASONE SOD PHOSPHATE 10 MG/ML 1 ML VIAL IVP SCH (06:56)
[2021-10-22] MEDS: ZINC SULFATE 220 MG CAP PO SCH (06:56)
[2021-10-22] MEDS: ENOXAPARIN 40 MG/0.4 ML SYRINGE SQ SCH (06:56)
[2021-10-22] MEDS: SYMBICORT 160-4.5 MCG INHALER INHALATION SCH ×2 (07:10→21:22)
[2021-10-22] MEDS: ALBUTEROL HFA INHALER INHALATION PRN ×4 (07:10→21:22)
[2021-10-22] MEDS: FLUTICASONE 110 MCG INHALER INHALATION SCH ×2 (07:10→21:22)
[2021-10-22] MEDS: levETIRAcetam 500 MG TAB PO SCH ×2 (07:27→21:08)
[2021-10-22] MEDS ORDERED: DEXAMETHASONE SOD PHOSPHATE 10 MG/ML 1 ML VIAL IVP SCH (09:00)
[2021-10-22] MEDS ORDERED: HYDROCORTISONE 10 MG TAB PO SCH (09:00)
[2021-10-22 10:00] LABS: Basophils % (A) 0 %; Eosinophils % (A) 0 %; HCT 38.9 % (34.0-46.0); HGB 12.9 gm/dL (11.4-16.0); Lymphocytes # (A) 0.8 k/uL (1.0-4.8); Lymphocytes % (A) 9 %; MCH 31.5 pg (25.0-35.0); MCHC 33.2 g/dL (31.0-37.0); MCV 94.8 fL (80.0-100.0); Mean Platelet Volume 8.2; Monocytes # (A) 0.3 k/uL (0-1.0); Monocytes % (A) 4 %; Neutrophils # (A) 7.7 k/uL (1.3-7.7); Neutrophils % (A) 87 %; Platelet Count 215 k/uL (150-450); RDW 15.1 % (11.5-15.5); WBC 8.8 k/uL (3.8-10.6)
[2021-10-22 10:12] LABS: ALT 37 U/L (4-34); AST 37 U/L (14-36); African American GFR (CKD) >90 (>60 ml/min/1.73 sqM); Albumin 2.9 g/dL (3.5-5.0); Alkaline Phosphatase 76 U/L (38-126); Anion Gap 7 mmol/L; Blood Urea Nitrogen 17 mg/dL (7-17); Calcium 8.5 mg/dL (8.4-10.2); Carbon Dioxide 27 mmol/L (22-30); Chloride 106 mmol/L (98-107); Glucose 95 mg/dL (74-99); Non-African American GFR(CKD) >90 (>60 ml/min/1.73 sqM); Potassium 4.1 mmol/L (3.5-5.1); Sodium 140 mmol/L (137-145); Total Bilirubin 0.4 mg/dL (0.2-1.3); Total Protein 5.9 g/dL (6.3-8.2)
[2021-10-22] MEDS ORDERED: BACLOFEN 10 MG TAB PO PRN (12:43)
--- NOTE | 2021-10-22 13:29 | P.PN ---
Subjective Progress Note Date: 10/22/21 57-year-old here patient presented to the emergency department because of worsening shortness of breath. The patient was found at home by EMS to be quite hypoxic and apparently her pulse ox was 78% at home. At the exact timing of her sickness cannot be really established as the patient has a chronic illness with glioblastoma multiforme in she has undergone a recent craniotomy and she was dealing with a nonhealing wound on her scalp. She has not been vaccinated for COVID 19. She is known to have chronic bronchial asthma, severe persistent in nature and the patient has been maintained on Dulera/Qvar and addition to Singulair and she has been also receiving Xolair injections on outpatient basis. Her other comorbid conditions also include history of malignant melanoma, hyperlipidemia, acid reflux and the patient had a recent neuro evaluation including a CAT scan of the brain that revealed evidence of multiple lesions with cerebral edema. She was scheduled to undergo further evaluation with neurosurgery. She was also experiencing some mucus and left side of the body and it left facial droop among other neurological deficits. This neuro evaluation was supposed to be done at [facility]. Note that the patient also has history of malignant melanoma. However, the Th neurosurgical findings are consistent with glioblastoma. I'm not sure if the patient had complete resection of this tumor. She is underwent a recent craniotomy. Also, the patient has been maintained on Decadron 4 mg twice a day on outpatient basis In the emergency, the patient tested positive for COVID 19. The patient also had a chest x-ray that showed bilateral pulmonary infiltrates consistent with community related pneumonia. Her white cell count was at 9.3 with hemoglobin of 15.6 and a platelet count of 249. Her BM was at 70 with a creatinine of 0.8 and the sodium level 138.. Glucose was 98. Normal coagulation profile. Normal LFTs. Her troponin was less than 0.01. The patient was accordingly hospitalized. She was started on IV fluids. I this point in time, the patient on several liters about 2 by nasal cannula with a pulse ox of 93%. Note that the patient was already taken steroids on outpatient basis and I believe she was transitioned to Cortef. This switch was done due to a concern a nonhealing wound on her scalp. 10/22/2021, the patient is hospitalized for COVID 19 related pneumonia. She is a complicated case of glioblastoma multiforme he was received surgical resection and the patient has residual tumor in her brain. I sorted emergency department yesterday. I put her on Decadron. I put her on Lovenox. She is also supposed to undergo a CT angiogram of the chest also. Meanwhile, the patient's blood work shows a white cell count of 8.8 and hemoglobin of 12.9, d-dimer was at 0.6, LDH is at 575 and a CRP level is at 6.6. The pro calcitonin level is at 0.12. Rest of the electrodes are all within normal limits. She is able to sit up on a chair. She is calm and comfortable. Breathing is nonlabored. She has left- sided weakness related to her brain tumor. No seizure activity has been noted. Objective - Vital Signs Vital signs: Vital Signs Temp 98.1 F 10/22/21 10:20 Pulse 67 10/22/21 10:20 Resp 22 10/22/21 10:20 BP 102/67 10/22/21 10:20 Pulse Ox 89 L 10/22/21 10:20 Intake & Output 10/21/21 10/22/21 10/22/21 18:59 06:59 18:59 Intake Total 218 Balance 218 Weight 79.379 kg 79.379 kg Intake: Oral 218 Other: # Voids 300 - Exam General appearance: alert, in no apparent distress, patient is having some mild respiratory distress and the patient is currently on 15 L of oxygen by nasal cannula Head exam: Present: atraumatic, normocephalic, normal inspection Eye exam: Present: normal appearance, PERRL, EOMI. Absent: scleral icterus, conjunctival injection, periorbital swelling ENT exam: Present: normal exam, mucous membranes moist Neck exam: Present: normal inspection. Absent: tenderness, meningismus, lymphadenopathy Respiratory exam: Present: wheezes, decreased breath sounds. Absent: normal l kathy sounds bilaterally, respiratory distress, rales, rhonchi, stridor Cardiovascular Exam: Present: normal rhythm, tachycardia, normal heart sounds. Absent: systolic murmur, diastolic murmur, rubs, gallop, clicks Neurological exam: Present: alert, oriented X3, the patient has a healed the scalp wound postcraniotomy Skin exam: Present: warm, dry, intact, normal color. Absent: rash - Labs CBC & Chem 7: 10/22/21 07:35 10/22/21 07:35 Labs: Abnormal Lab Results - Last 24 Hours (Table) 10/21/21 10/21/21 10/21/21 Range/Units 16:13 16:13 16:13 Lymphocytes # (1.0-4.8) k/uL D-Dimer 0.67 H (<0.60) mg/L FEU Ferritin 559.0 H (10.0-291.0) ng/mL AST (14-36) U/L ALT (4-34) U/L Lactate Dehydrogenase 575 H (120-246) U/L C-Reactive Protein 6.60 H (0.00-0.80) mg/dL Total Protein (6.3-8.2) g/dL Albumin (3.5-5.0) g/dL Procalcitonin 0.12 H (0.02-0.09) ng/mL 10/22/21 10/22/21 Range/Units 07:35 07:35 Lymphocytes # 0.8 L (1.0-4.8) k/uL D-Dimer (<0.60) mg/L FEU Ferritin (10.0-291.0) ng/mL AST 37 H (14-36) U/L ALT 37 H (4-34) U/L Lactate Dehydrogenase (120-246) U/L C-Reactive Protein (0.00-0.80) mg/dL Total Protein 5.9 L (6.3-8.2) g/dL Albumin 2.9 L (3.5-5.0) g/dL Procalcitonin (0.02-0.09) ng/mL Assessment and Plan Plan: 1 acute COVID 19 related pneumonia with secondary respiratory distress and hypoxemia unable to establish the exact timing of her symptoms as the patient has been chronically ill. For that reason, I would suggest putting on a combination of Decadron and Remdesivir. I would like to give her the benefit of the doubt of Remdesivir treatment and combination with Decadron. Note that the Remdesivir the patient is going to receive the second dose today.. Meanwhile, the patient had some desaturation currently she is on 15 L of oxygen by nasal cannula. CT angiogram is to follow. 2 acute hypoxic respiratory failure secondary to above and the patient is currently on 15 L approximately nasal cannula. The patient's chest x-ray showing limited lower lobe pulmonary infiltrates 3 severe persistent bronchial asthma managed on outpatient basis with a combination of Dulera/Qvar in addition to Singulair and Xolair injections. 4 history of glioblastoma of the brain, as the patient was found to have a mass involving the right parietal lobe of the brain, resected surgically. The patient has developed left-sided paresis. The patient has a sacral 12 the lesions and she has 2 additional lesions and she is supposed to receive radiation therapy at a later stage. She had issues with nonhealing scalp wound and for that reason the radiation was delayed. Her wound is currently healed. 5 history of melanoma of the skin, resected 6 hyperlipidemia 7 history of kidney stones Plan Titrate the oxygen flow to maintain a saturation above 90% Put the patient on Decadron 6 mg IV every 24 hours Continue Remdesivir per protocol Put the patient on Lovenox 40 mg subcu for DVT prophylaxis Check d-dimer Check pro calcitonin level Check LDH and CRP In view of her increased risk of DVT and pulmonary embolism, it'll be worthwhile to do a CT angiogram of the patient's chest to rule out pulmonary embolism. Resume all medications The Qvar/Dulera will be replaced with Symbicort during her hospital stay and the patient will be given Ventolin as needed basis IV fluid hydration Lovenox 40 mg subcu prophylaxis We'll continue to follow
--- NOTE | 2021-10-22 16:30 | CT ---
EXAMINATION TYPE: CT angio chest DATE OF EXAM: 10/22/2021 COMPARISON: CTA chest August 25, 2018 HISTORY: Covid, shortness of breath. CT DLP: 315.8 mGycm. Automated Exposure Control for Dose Reduction was Utilized. CONTRAST: CTA scan of the thorax is performed with IV Contrast, patient injected with 100 mL of Isovue 370, pul monary embolism protocol. MIP Images are created on CT scanner and reviewed. FINDINGS: LUNGS: Bilateral multifocal areas of groundglass opacity and organizing consolidations inferiorly are present currently. No pleural effusion or pneumothorax seen bilaterally. MEDIASTINUM: There is satisfactory enhancement of the pulmonary artery and its branches, there is no CT evidence for pulmonary embolism. Satisfactory enhancement of the thoracic aorta without aneurysm or dissection. No cardiomegaly or pericardial effusion is seen. Prominent but subcentimeter bilateral hilar lymph nodes. No greater than 1 cm mediastinal lymph nodes. OTHER: Cholecystectomy clips noted. IMPRESSION: No CT evidence for acute pulmonary embolism. Bilateral multifocal groundglass opacities w ith lower lung organizing consolidations consistent with known covid-19 infection.
[2021-10-22] MEDS: BACLOFEN 10 MG TAB PO SCH ×2 (17:33→21:09)
[2021-10-22] MEDS: REMDESIVIR 100 MG in SODIUM CHLORIDE 0.9% 250 ML IVPB SCH (17:33)
[2021-10-22] MEDS: FAMOTIDINE 20 MG/2 ML VIAL IV SCH (21:08)
[2021-10-22] MEDS: MONTELUKAST 10 MG TAB PO SCH (21:09)
[2021-10-22] MEDS: ATORVASTATIN 10 MG TAB PO SCH (21:09)
[2021-10-22] MEDS: ALPRAZolam 0.25 MG TAB PO PRN (21:09)
[2021-10-22] MEDS: traZODone HCL 50 MG TAB PO SCH (21:10)
[2021-10-23] MEDS: ALPRAZolam 0.25 MG TAB PO PRN ×2 (04:55→18:46)
[2021-10-23] MEDS: DEXAMETHASONE SOD PHOSPHATE 10 MG/ML 1 ML VIAL IVP SCH (07:27)
[2021-10-23] MEDS: ENOXAPARIN 40 MG/0.4 ML SYRINGE SQ SCH (07:27)
[2021-10-23] MEDS: BACLOFEN 10 MG TAB PO SCH ×4 (07:28→20:19)
[2021-10-23] MEDS: ZINC SULFATE 220 MG CAP PO SCH (07:28)
[2021-10-23] MEDS: FAMOTIDINE 20 MG/2 ML VIAL IV SCH (07:28)
[2021-10-23] MEDS: PANTOPRAZOLE 40 MG TABLET PO SCH (07:28)
[2021-10-23] MEDS: CHOLECALCIFEROL 25 MCG (1000 IU) TABLET PO SCH (07:28)
[2021-10-23] MEDS: ASCORBIC ACID 500 MG TAB PO SCH (07:28)
[2021-10-23] MEDS: levETIRAcetam 500 MG TAB PO SCH ×2 (07:28→20:18)
[2021-10-23] MEDS: SODIUM CHLORIDE 0.9% 1,000 ML IV SCH ×2 (07:29→22:42)
[2021-10-23] MEDS: FLUTICASONE 110 MCG INHALER INHALATION SCH ×2 (09:01→20:16)
[2021-10-23] MEDS: ALBUTEROL HFA INHALER INHALATION PRN ×3 (09:01→20:16)
[2021-10-23] MEDS: SYMBICORT 160-4.5 MCG INHALER INHALATION SCH ×2 (09:02→20:16)
--- NOTE | 2021-10-23 13:33 | P.PN ---
Subjective Progress Note Date: 10/23/21 57-year-old here patient presented to the emergency department because of worsening shortness of breath. The patient was found at home by EMS to be quite hypoxic and apparently her pulse ox was 78% at home. At the exact timing of her sickness cannot be really established as the patient has a chronic illness with glioblastoma multiforme in she has undergone a recent craniotomy and she was dealing with a nonhealing wound on her scalp. She has not been vaccinated for COVID 19. She is known to have chronic bronchial asthma, severe persistent in nature and the patient has been maintained on Dulera/Qvar and addition to Singulair and she has been also receiving Xolair injections on outpatient basis. Her other comorbid conditions also include history of malignant melanoma, hyperlipidemia, acid reflux and the patient had a recent neuro evaluation including a CAT scan of the brain that revealed evidence of multiple lesions with cerebral edema. She was scheduled to undergo further evaluation with neurosurgery. She was also experiencing some mucus and left side of the body and it left facial droop among other neurological deficits. This neuro evaluation was supposed to be done at [facility]. Note that the patient also has history of malignant melanoma. However, the Th neurosurgical findings are consistent with glioblastoma. I'm not sure if the patient had complete resection of this tumor. She is underwent a recent craniotomy. Also, the patient has been maintained on Decadron 4 mg twice a day on outpatient basis In the emergency, the patient tested positive for COVID 19. The patient also had a chest x-ray that showed bilateral pulmonary infiltrates consistent with community related pneumonia. Her white cell count was at 9.3 with hemoglobin of 15.6 and a platelet count of 249. Her BM was at 70 with a creatinine of 0.8 and the sodium level 138.. Glucose was 98. Normal coagulation profile. Normal LFTs. Her troponin was less than 0.01. The patient was accordingly hospitalized. She was started on IV fluids. I this point in time, the patient on several liters about 2 by nasal cannula with a pulse ox of 93%. Note that the patient was already taken steroids on outpatient basis and I believe she was transitioned to Cortef. This switch was done due to a concern a nonhealing wound on her scalp. 10/22/2021, the patient is hospitalized for COVID 19 related pneumonia. She is a complicated case of glioblastoma multiforme he was received surgical resection and the patient has residual tumor in her brain. I sorted emergency department yesterday. I put her on Decadron. I put her on Lovenox. She is also supposed to undergo a CT angiogram of the chest also. Meanwhile, the patient's blood work shows a white cell count of 8.8 and hemoglobin of 12.9, d-dimer was at 0.6, LDH is at 575 and a CRP level is at 6.6. The pro calcitonin level is at 0.12. Rest of the electrodes are all within normal limits. She is able to sit up on a chair. She is calm and comfortable. Breathing is nonlabored. She has left- sided weakness related to her brain tumor. No seizure activity has been noted. 10/23/2021, the patient is in a prone bessie position. She is on high flow oxygen at [address] L[address] She [address] a [address] angiogram yesterday and showed no evidence of any pulmonary lives in. The patient had diffuse bilateral groundglass pulmonary infiltrates consistent with Coumadin therapy related pneumonia. Meanwhile, the patient remains on Decadron. She is doing well for now. Decadron is a dose of 6 mg IV every 24 hours. She is also on disability for protocol. She is on day #3 of Remdesivir. No seizure activity. She has weakness on her left side of the body related to a tumor in her brain consistent with glioblastoma multiforme. She remains on Lovenox 4 mg subcu on a daily basis. This is a bit anxious. Denies having any worsening shortness of breath. The blood work from today is still pending. Meanwhile, the LDH level was 575 from the day of admission with a pro calcitonin level of 0.12. D-dimer is at 0.67. Objective - Vital Signs Vital signs: Vital Signs Temp 98.3 F 10/23/21 09:39 Pulse 98 10/23/21 09:39 Resp 18 10/23/21 09:39 BP 105/71 10/23/21 09:39 Pulse Ox 89 L 10/23/21 09:39 Intake & Output 10/22/21 10/23/21 10/23/21 18:59 06:59 18:59 Intake Total 218 Balance 218 Intake: Oral 218 Other: Voiding Method Bedside Commode # Voids 4 3 - Exam General appearance: alert, in no apparent distress, patient is having some mild respiratory distress and the patient is currently on 15 L of oxygen by nasal cannula Head exam: Present: atraumatic, normocephalic, normal inspection Eye exam: Present: normal appearance, PERRL, EOMI. Absent: scleral icterus, conjunctival injection, periorbital swelling ENT exam: Present: normal exam, mucous membranes moist Neck exam: Present: normal inspection. Absent: tenderness, meningismus, lymphadenopathy Respiratory exam: Present: wheezes, decreased breath sounds. Absent: normal lung sounds bilaterally, respiratory distress, rales, rhonchi, stridor Cardiovascular Exam: Present: normal rhythm, tachycardia, normal heart sounds. Absent: systolic murmur, diastolic murmur, rubs, gallop, clicks Neurological exam: Present: alert, oriented X3, the patient has a healed the scalp wound postcraniotomy Skin exam: Present: warm, dry, intact, normal color. Absent: rash - Labs CBC & Chem 7: 10/22/21 07:35 10/22/21 07:35 Assessment and Plan Plan: 1 acute COVID 19 related pneumonia with secondary respiratory distress and hypoxemia unable to establish the exact timing of her symptoms as the patient has been chronically ill. For that reason, I would suggest putting on a combination of Decadron and Remdesivir. I would like to give her the benefit of the doubt of Remdesivir treatment and combination with Decadron. Note that the Remdesivir day #3 and the patient remains on 15 L of oxygen by nasal cannula and she is assuming Prometa positioning. She is comfortable. CAT scan of the chest showed no evidence of any pulmonary embolism. There was diffuse bilateral ground glass pulmonary infiltrates consistent with COVID 19 infection. D-dimer is at 0.67. LDH level is at 575. 2 acute hypoxic respiratory failure secondary to above and the patient is currently on 15 L approximately nasal cannula. The patient's chest x-ray showing limited lower lobe pulmonary infiltrates 3 severe persistent bronchial asthma managed on outpatient basis with a combination of Dulera/Qvar in addition to Singulair and Xolair injections. 4 history of glioblastoma of the brain, as the patient was found to have a mass involving the right parietal lobe of the brain, resected surgically. The pat ient has developed left-sided paresis. The patient has a sacral 12 the lesions and she has 2 additional lesions and she is supposed to receive radiation therapy at a later stage. She had issues with nonhealing scalp wound and for that reason the radiation was delayed. Her wound is currently healed. 5 history of melanoma of the skin, resected 6 hyperlipidemia 7 history of kidney stones Plan Titrate the oxygen flow to maintain a saturation above 90% Put the patient on Decadron 6 mg IV every 24 hours Continue Remdesivir per protocol Put the patient on Lovenox 40 mg subcu for DVT prophylaxis Check d-dimer at 0.67 Check pro calcitonin level at 0.12 Check LDH and CRP and the levels are [address] of the chest was reviewed Resume all medications The Qvar/Dulera will be replaced with Symbicort during her hospital stay and the patient will be given Ventolin as needed basis IV fluid hydration Lovenox 40 mg subcu prophylaxis We'll continue to follow
[2021-10-23] MEDS: REMDESIVIR 100 MG in SODIUM CHLORIDE 0.9% 250 ML IVPB SCH (17:51)
[2021-10-23] MEDS: MONTELUKAST 10 MG TAB PO SCH (20:19)
[2021-10-23] MEDS: ATORVASTATIN 10 MG TAB PO SCH (20:19)
[2021-10-23] MEDS: traZODone HCL 50 MG TAB PO SCH (20:20)
[2021-10-23] MEDS: FAMOTIDINE 20 MG TAB PO SCH (20:22)
[2021-10-24] MEDS: ALPRAZolam 0.25 MG TAB PO PRN ×2 (05:57→20:59)
[2021-10-24] MEDS: CHOLECALCIFEROL 25 MCG (1000 IU) TABLET PO SCH (07:50)
[2021-10-24] MEDS: PANTOPRAZOLE 40 MG TABLET PO SCH (07:50)
[2021-10-24] MEDS: DEXAMETHASONE SOD PHOSPHATE 10 MG/ML 1 ML VIAL IVP SCH (07:50)
[2021-10-24] MEDS: BACLOFEN 10 MG TAB PO SCH ×4 (07:50→20:47)
[2021-10-24] MEDS: ASCORBIC ACID 500 MG TAB PO SCH (07:50)
[2021-10-24] MEDS: levETIRAcetam 500 MG TAB PO SCH ×2 (07:51→20:47)
[2021-10-24] MEDS: FAMOTIDINE 20 MG TAB PO SCH ×2 (07:51→20:47)
[2021-10-24] MEDS: ZINC SULFATE 220 MG CAP PO SCH (07:51)
[2021-10-24] MEDS: ENOXAPARIN 40 MG/0.4 ML SYRINGE SQ SCH (07:51)
[2021-10-24] MEDS: SYMBICORT 160-4.5 MCG INHALER INHALATION SCH ×2 (09:19→20:55)
[2021-10-24] MEDS: FLUTICASONE 110 MCG INHALER INHALATION SCH ×2 (09:20→20:55)
[2021-10-24 10:33] LABS: Basophils % (A) 0 %; Eosinophils # (A) 0.1 k/uL (0-0.7); Eosinophils % (A) 0 %; HCT 41.2 % (34.0-46.0); HGB 13.7 gm/dL (11.4-16.0); Lymphocytes # (A) 0.8 k/uL (1.0-4.8); Lymphocytes % (A) 6 %; MCH 31.2 pg (25.0-35.0); MCHC 33.1 g/dL (31.0-37.0); MCV 94.3 fL (80.0-100.0); Mean Platelet Volume 8.1; Monocytes # (A) 0.2 k/uL (0-1.0); Monocytes % (A) 2 %; Neutrophils # (A) 12.4 k/uL (1.3-7.7); Neutrophils % (A) 91 %; Platelet Count 335 k/uL (150-450); RBC 4.37 m/uL (3.80-5.40); RDW 14.9 % (11.5-15.5); WBC 13.6 k/uL (3.8-10.6)
[2021-10-24 11:36] LABS: African American GFR (CKD) >90 (>60 ml/min/1.73 sqM); Anion Gap 10 mmol/L; Blood Urea Nitrogen 10 mg/dL (7-17); Calcium 8.4 mg/dL (8.4-10.2); Carbon Dioxide 26 mmol/L (22-30); Chloride 100 mmol/L (98-107); Glucose 72 mg/dL (74-99); Non-African American GFR(CKD) 80 (>60 ml/min/1.73 sqM); Potassium 3.1 mmol/L (3.5-5.1); Sodium 136 mmol/L (137-145)
[2021-10-24 12:08] LABS: LDH 2166 U/L (313-618)
--- NOTE | 2021-10-24 14:48 | P.PN ---
Subjective Progress Note Date: 10/24/21 57-year-old here patient presented to the emergency department because of worsening shortness of breath. The patient was found at home by EMS to be quite hypoxic and apparently her pulse ox was 78% at home. At the exact timing of her sickness cannot be really established as the patient has a chronic illness with glioblastoma multiforme in she has undergone a recent craniotomy and she was dealing with a nonhealing wound on her scalp. She has not been vaccinated for COVID 19. She is known to have chronic bronchial asthma, severe persistent in nature and the patient has been maintained on Dulera/Qvar and addition to Singulair and she has been also receiving Xolair injections on outpatient basis. Her other comorbid conditions also include history of malignant melanoma, hyperlipidemia, acid reflux and the patient had a recent neuro evaluation including a CAT scan of the brain that revealed evidence of multiple lesions with cerebral edema. She was scheduled to undergo further evaluation with neurosurgery. She was also experiencing some mucus and left side of the body and it left facial droop among other neurological deficits. This neuro evaluation was supposed to be done at [facility]. Note that the patient also has history of malignant melanoma. However, the Th neurosurgical findings are consistent with glioblastoma. I'm not sure if the patient had complete resection of this tumor. She is underwent a recent craniotomy. Also, the patient has been maintained on Decadron 4 mg twice a day on outpatient basis In the emergency, the patient tested positive for COVID 19. The patient also had a chest x-ray that showed bilateral pulmonary infiltrates consistent with community related pneumonia. Her white cell count was at 9.3 with hemoglobin of 15.6 and a platelet count of 249. Her BM was at 70 with a creatinine of 0.8 and the sodium level 138.. Glucose was 98. Normal coagulation profile. Normal LFTs. Her troponin was less than 0.01. The patient was accordingly hospitalized. She was started on IV fluids. I this point in time, the patient on several liters about 2 by nasal cannula with a pulse ox of 93%. Note that the patient was already taken steroids on outpatient basis and I believe she was transitioned to Cortef. This switch was done due to a concern a nonhealing wound on her scalp. 10/22/2021, the patient is hospitalized for COVID 19 related pneumonia. She is a complicated case of glioblastoma multiforme he was received surgical resection and the patient has residual tumor in her brain. I sorted emergency department yesterday. I put her on Decadron. I put her on Lovenox. She is also supposed to undergo a CT angiogram of the chest also. Meanwhile, the patient's blood work shows a white cell count of 8.8 and hemoglobin of 12.9, d-dimer was at 0.6, LDH is at 575 and a CRP level is at 6.6. The pro calcitonin level is at 0.12. Rest of the electrodes are all within normal limits. She is able to sit up on a chair. She is calm and comfortable. Breathing is nonlabored. She has left- sided weakness related to her brain tumor. No seizure activity has been noted. 10/23/2021, the patient is in a prone bessie position. She is on high flow oxygen at 15 L[address] She underwent a [address] angiogram yesterday and showed no evidence of any pulmonary lives in. The patient had diffuse bilateral groundglass pulmonary infiltrates consistent with Coumadin therapy related pneumonia. Meanwhile, the patient remains on Decadron. She is doing well for now. Decadron is a dose of 6 mg IV every 24 hours. She is also on disability for protocol. She is on day #3 of Remdesivir. No seizure activity. She has weakness on her left side of the body related to a tumor in her brain consistent with glioblastoma multiforme. She remains on Lovenox 4 mg subcu on a daily basis. This is a bit anxious. Denies having any worsening shortness of breath. The blood work from today is still pending. Meanwhile, the LDH level was 575 from the day of admission with a pro calcitonin level of 0.12. D-dimer is at 0.67. The patient is seen today 10/24/2021 in follow-up on the regular medical floor. She is currently resting prone in bed. Awake and alert in no apparent distress. She is maintaining O2 saturation in the low 90s on 15 L high flow nasal cannula is in nonrebreather mask. Throughout the day she desaturated to 85%. She was transitioned to AirVo high flow oxygen at 40 L and percent FiO2 with a O2 saturation 95%. Temperature 99.2 axillary. Blood pressure stable. White count 13.6. Hemoglobin 13.7. Lymphocytes 0.8. Sodium 136. Potassium 3.1. Creatinine 0.84. LDH 2166. C-reactive protein 5.0. He is continued on Dec adron, Lovenox, vitamin supplements. Day #4 of Remdesivir. Objective - Vital Signs Vital signs: Vital Signs Temp 99.2 F 10/24/21 14:16 Pulse 102 H 10/24/21 14:04 Resp 20 10/24/21 14:16 BP 102/66 10/24/21 14:06 Pulse Ox 95 10/24/21 14:32 Intake & Output 10/23/21 10/24/21 10/24/21 18:59 06:59 18:59 Other: Voiding Method Bedside Commode # Voids 3 1 - Exam General appearance: alert, 51-year-old female patient, laying prone in bed,, patient is having some mild respiratory distress and the patient is currently on 15 L of oxygen by nasal cannula Head exam: Present: atraumatic, normocephalic, normal inspection Eye exam: Present: normal appearance, PERRL, EOMI. Absent: scleral icterus, conjunctival injection, periorbital swelling ENT exam: Present: normal exam, mucous membranes moist Neck exam: Present: normal inspection. Absent: tenderness, meningismus, lymphadenopathy Respiratory exam: Present: wheezes, crackles in the posterior bases, decreased breath sounds. Cardiovascular Exam: Present: normal rhythm, tachycardia, normal heart sounds. Absent: systolic murmur, diastolic murmur, rubs, gallop, clicks Neurological exam: Present: alert, oriented X3, the patient has a healed the scalp wound postcraniotomy Skin exam: Present: warm, dry, intact, normal color. Absent: rash - Labs CBC & Chem 7: 10/24/21 09:02 10/24/21 09:02 Labs: Abnormal Lab Results - Last 24 Hours (Table) 10/24/21 10/24/21 Range/Units 09:02 09:02 WBC 13.6 H (3.8-10.6) k/uL Neutrophils # 12.4 H (1.3-7.7) k/uL Lymphocytes # 0.8 L (1.0-4.8) k/uL Sodium 136 L (137-145) mmol/L Potassium 3.1 L (3.5-5.1) mmol/L Glucose 72 L (74-99) mg/dL Lactate Dehydrogenase 2166 H (313-618) U/L C-Reactive Protein 5.0 H (<1.0) mg/dL Assessment and Plan Assessment: 1 acute COVID 19 related pneumonia with secondary respiratory distress and hypoxemia unable to establish the exact timing of her symptoms as the patient has been chronically ill. On a combination of Decadron and Remdesivir. I would like to give her the benefit of the doubt of Remdesivir treatment and combination with Decadron. Note that the Remdesivir day #4 and the patient remains on 15 L of oxygen by nasal cannula and she is assuming Prone positioning. She is comfortable. CAT scan of the chest showed no evidence of any pulmonary embolism. There was diffuse bilateral ground glass pulmonary infiltrates consistent with COVID 19 infection. 2 acute hypoxic respiratory failure secondary to above and the patient is currently on 15 L approximately nasal cannula. The patient's chest x-ray showing limited lower lobe pulmonary infiltrates 3 severe persistent bronchial asthma managed on outpatient basis with a combination of Dulera/Qvar in addition to Singulair and Xolair injections. 4 history of glioblastoma of the brain, as the patient was found to have a mass involving the right parietal lobe of the brain, resected surgically. The patient has developed left-sided paresis. The patient has a sacral 12 the lesions and she has 2 additional lesions and she is supposed to receive radiation therapy at a later stage. She had issues with nonhealing scalp wound and for that reason the radiation was delayed. Her wound is currently healed. 5 history of melanoma of the skin, resected 6 hyperlipidemia 7 history of kidney stones Plan: The patient was seen and evaluated today O2 saturations did drop to 85% on 15 L high flow plus a nonrebreather mask Transitioned to AirVo high flow oxygen at 40 L and 60% FiO2 Titrate the FiO2 as tolerated Follow-up inflammatory markers in the a.m. We will continue to follow
--- NOTE | 2021-10-24 15:43 | P.PN ---
Subjective Progress Note Date: 10/22/21 Principal diagnosis: Acute hypoxic failure secondary to COVID-19 pneumonia Patient is a 51-year-old female with a known history of brain tumor/glioblastoma with the recent surgery, asthma, GERD and history of esophageal dysmotility, hyperlipidemia and other medical problems presents ER with complaints of shortness of breath. Patient has been having shortness of breath worsening for the past 10-12 days. Patient had recent brain surgery. EMS was called due to worsening symptoms and found to be hypoxic with pulse ox 78%. Patient was brought to the hospital for evaluation. Otherwise patient denied any fever or chills. No nausea vomiting or abdominal pain or diarrhea. No loss of taste or smell sensation 15 L any sick contacts. Patient was tested positive for COVID-1 9 infection. Patient was placed on nasal cannula oxygen at 6 L. Chest x-ray showed mild bibasilar infiltrates. Atelectasis and pneumonia as well as atypical pneumonia could be considered. Next and laboratory data showed the recent 9.3 hemoglobin 10.6 and platelets 249 Sodium 138 potassium 4.1 chloride 103 BUN 17 and creatinine 0.82 AST 49 ALT 50, LDH 575 ferritin 559 d-dimer 0.67 and CRP 6.6 Progress toward level is 0.12 COVID-19 PCR detected still complaining of shortness of breath requiring 12-21 Patient is currently in selective unit. Requiring oxygen at 15 L by nasal cannula and nonrebreather. No complaints of fever or chills. No compressive chest pain. No nausea vomiting or abdominal pain or diarrhea. Patient is awake alert and oriented 3. Laboratory data showed WBC 8.8 hemoglobin 12.9 and platelets 2:15 lymphocytes 0.8 BUN 17 and creatinine 0.76, AST 37 ALT 37 alk phos 76 and progressed and was 0.12. Patient is being continued on dexamethasone, Lovenox and Remdesivir. Nares on board. Continued on DuoNeb's and Flovent. Current medications reviewed. Objective - Vital Signs Vital signs: Vital Signs Temp 98.1 F 10/22/21 10:20 Pulse 67 10/22/21 10:20 Resp 22 10/22/21 10:20 BP 102/67 10/22/21 10:20 Pulse Ox 89 L 10/22/21 10:20 Intake & Output 10/21/21 10/22/21 10/22/21 18:59 06:59 18:59 Intake Total 218 Balance 218 Weight 79.379 kg 79.379 kg Intake: Oral 218 Other: # Voids 300 - Exam PHYSICAL EXAMINATION: Patient is lying in the bed comfortably, no acute distress, awake alert and oriented.. HEENT: Normocephalic. Neck is supple. Pupils reactive. Nostrils clear. Oral cavity is moist. Neck reveals no JVD, carotid bruits, or thyromegaly. CHEST EXAMINATION: Trachea is central. Symmetrical expansion. Expiratory wheeze. Nonlabored breathing. Scattered rhonchi.. CARDIAC: Normal S1, S2 with no gallops. No murmurs ABDOMEN: Soft. Bowel sounds normal. No organomegaly. No abdominal bruits. Extremities: reveal no edema. No clubbing or cyanosis Neurologically awake, alert, oriented x3 with well-coordinated movements. No focal deficits noted Skin: No rash or skin lesions. Psychiatric: Coperative. Nonsuicidal, anxious. Musculoskeletal: No joint swelling or deformity. Normal range of motion. - Labs CBC & Chem 7: 10/24/21 09:02 10/24/21 09:02 Labs: Abnormal Lab Results - Last 24 Hours (Table) 10/21/21 10/21/21 10/21/21 Range/Units 16:13 16:13 16:13 Lymphocytes # (1.0-4.8) k/uL D-Dimer 0.67 H (<0.60) mg/L FEU Ferritin 559.0 H (10.0-291.0) ng/mL AST (14-36) U/L ALT (4-34) U/L Lactate Dehydrogenase 575 H (120-246) U/L C-Reactive Protein 6.60 H (0.00-0.80) mg/dL Total Protein (6.3-8.2) g/dL Albumin (3.5-5.0) g/dL Procalcitonin 0.12 H (0.02-0.09) ng/mL 10/22/21 10/22/21 Range/Units 07:35 07:35 Lymphocytes # 0.8 L (1.0-4.8) k/uL D-Dimer (<0.60) mg/L FEU Ferritin (10.0-291.0) ng/mL AST 37 H (14-36) U/L ALT 37 H (4-34) U/L Lactate Dehydrogenase (120-246) U/L C-Reactive Protein (0.00-0.80) mg/dL Total Protein 5.9 L (6.3-8.2) g/dL Albumin 2.9 L (3.5-5.0) g/dL Procalcitonin (0.02-0.09) ng/mL Assessment and Plan Assessment: Acute hypoxic respiratory failure secondary to COVID-19 pneumonia Acute COVID-19 pneumonia. Severe persistent asthma on outpatient follow up with pulmonary and currently on Qvar, Singulair and insulin injections. History of right sided glioblastoma of the brain status post recent surgery abo ut a month ago. Does have left-sided addresses secondary to that. History of melanoma the skin resected Hyperlipidemia History of renal stones GERD History of esophageal dysmotility DVT prophylaxis. Plan: Patient will be continued on dexamethasone 6 mg daily, Lovenox subcu and multivitamins. Continued with oxygen supplementation to keep the saturation above 92%. Currently at 15 L Continue the home medications and follow closely. Follow up intermittently markings. Pulmonary was consulted. Prognosis is guarded this time. Time with Patient: Greater than 30
--- NOTE | 2021-10-24 15:45 | P.PN ---
Subjective Progress Note Date: 10/23/21 Principal diagnosis: Acute hypoxic failure secondary to COVID-19 pneumonia Patient is a 51-year-old female with a known history of brain tumor/glioblastoma with the recent surgery, asthma, GERD and history of esophageal dysmotility, hyperlipidemia and other medical problems presents ER with complaints of shortness of breath. Patient has been having shortness of breath worsening for the past 10-12 days. Patient had recent brain surgery. EMS was called due to worsening symptoms and found to be hypoxic with pulse ox 78%. Patient was brought to the hospital for evaluation. Otherwise patient denied any fever or chills. No nausea vomiting or abdominal pain or diarrhea. No loss of taste or smell sensation 15 L any sick contacts. Patient was tested positive for COVID-1 9 infection. Patient was placed on nasal cannula oxygen at 6 L. Chest x-ray showed mild bibasilar infiltrates. Atelectasis and pneumonia as well as atypical pneumonia could be considered. Next and laboratory data showed the recent 9.3 hemoglobin 10.6 and platelets 249 Sodium 138 potassium 4.1 chloride 103 BUN 17 and creatinine 0.82 AST 49 ALT 50, LDH 575 ferritin 559 d-dimer 0.67 and CRP 6.6 Progress toward level is 0.12 COVID-19 PCR detected still complaining of shortness of breath requiring 12-21 Patient is currently in selective unit. Requiring oxygen at 15 L by nasal cannula and nonrebreather. No complaints of fever or chills. No compressive chest pain. No nausea vomiting or abdominal pain or diarrhea. Patient is awake alert and oriented 3. Laboratory data showed WBC 8.8 hemoglobin 12.9 and platelets 2:15 lymphocytes 0.8 BUN 17 and creatinine 0.76, AST 37 ALT 37 alk phos 76 and progressed and was 0.12. Patient is being continued on dexamethasone, Lovenox and Remdesivir. Nares on board. Continued on DuoNeb's and Flovent. 10/23/2021 Patient is still on 15 L oxygen via nasal cannula. CT angiogram showed no evidence of PE. Diffuse bilateral groundglass pulmonary infiltrates consistent with COVID-19 19 pneumonia. Patient is being treated on dexamethasone, Lovenox and also onday #3 of Remdesivir. No complex of chest pain. Denied any worsening shortness of breath. Still having exertional dyspnea. Patient denied any nausea vomiting or abdominal pain or diarrhea. Laboratory data reviewed. Current medications reviewed. Objective - Vital Signs Vital signs: Vital Signs Temp 98.3 F 10/23/21 17:27 Pulse 99 10/23/21 17:27 Resp 18 10/23/21 17:27 BP 113/75 10/23/21 17:27 Pulse Ox 89 L 10/23/21 17:27 Intake & Output 10/23/21 10/23/21 10/24/21 06:59 18:59 06:59 Other: Voiding Method Bedside Commode # Voids 3 3 - Exam PHYSICAL EXAMINATION: Patient is lying in the bed comfortably, no acute distress, awake alert and oriented.. HEENT: Normocephalic. Neck is supple. Pupils reactive. Nostrils clear. Oral cavity is moist. Neck reveals no JVD, carotid bruits, or thyromegaly. CHEST EXAMINATION: Trachea is central. Symmetrical expansion. Expiratory wheeze. Nonlabored breathing. Scattered rhonchi.. CARDIAC: Normal S1, S2 with no gallops. No murmurs ABDOMEN: Soft. Bowel sounds normal. No organomegaly. No abdominal bruits. Extremities: reveal no edema. No clubbing or cyanosis Neurologically awake, alert, oriented x3 with well-coordinated movements. No focal deficits noted Skin: No rash or skin lesions. Psychiatric: Coperative. Nonsuicidal, anxious. Musculoskeletal: No joint swelling or deformity. Normal range of motion. - Labs CBC & Chem 7: 10/24/21 09:02 10/24/21 09:02 Assessment and Plan Assessment: Acute hypoxic respiratory failure secondary to COVID-19 pneumonia Acute COVID-19 pneumonia. Severe persistent asthma on outpatient follow up with pulmonary and currently on Qvar, Singulair and insulin injections. History of right sided glioblastoma of the brain status post recent surgery about a month ago. Does have left-sided addresses secondary to that. History of melanoma the skin resected Hyperlipidemia History of renal stones GERD History of esophageal dysmotility Anxiety. CODE STATUS is DO NOT RESUSCITATE/DO NOT INTUBATE DVT prophylaxis. Plan: Patient will be continued on dexamethasone 6 mg daily, Lovenox subcu and multivitamins. Continued with oxygen supplementation to keep the saturation above 92%. Currently at 15 L Continue the home medications and follow closely. Follow up intermittently markings. Pulmonary was consulted. Prognosis is guarded this time. Time with Patient: Greater than 30
[2021-10-24] MEDS: SODIUM CHLORIDE 0.9% 1,000 ML IV SCH (15:56)
[2021-10-24] MEDS: REMDESIVIR 100 MG in SODIUM CHLORIDE 0.9% 250 ML IVPB SCH (20:46)
[2021-10-24] MEDS: MONTELUKAST 10 MG TAB PO SCH (20:47)
[2021-10-24] MEDS: ATORVASTATIN 10 MG TAB PO SCH (20:47)
[2021-10-24] MEDS: traZODone HCL 50 MG TAB PO SCH (20:47)
[2021-10-24] MEDS: ALBUTEROL HFA INHALER INHALATION PRN (20:55)
[2021-10-25] MEDS: SODIUM CHLORIDE 0.9% 1,000 ML IV SCH ×2 (00:21→16:58)
[2021-10-25 04:11] LABS: Glucose,Whole Blood 82 mg/dL (75-99)
--- NOTE | 2021-10-25 04:51 | XR ---
EXAMINATION TYPE: XR chest 1V DATE OF EXAM: 10/25/2021 COMPARISON: 10/21/2021 HISTORY: Chest pain TECHNIQUE: FINDINGS: There is some patchy pulmonary interstitial edema. No pneumothorax. There is soft tissue a ir at the base of the neck. There is lucency around the mediastinum consistent with pneumomediastinum . No pneumothorax. Bony thorax is intact. IMPRESSION: There is evidence for pneumomediastinum which is new compared to recent exam. Mild pulmon flakito interstitial edema.
[2021-10-25] MEDS: ALPRAZolam 0.25 MG TAB PO PRN ×3 (05:02→20:41)
--- NOTE | 2021-10-25 06:16 | P.EN ---
A- team: Indication: Chest pain Arrived on Scene to find: Patient complaining of substernal pleuritic chest discomfort, Patient seen and examined at bedside. The patient reports the pain started an hour ago and gradually worsened. She reports it is 7/10, severely pruritic, constant, nonradiating. Vital signs reviewed General: Ill-appearing female in 15 L nonrebreather mask, [in mild to moderate respiratory distress], [appears at stated age] Derm: [warm], [dry] Head: [atraumatic], [normocephalic], [symmetric] Eyes: [EOMI], [no lid lag], [anicteric sclera] Mouth: [no lip lesion], [mucus membranes moist] Cardiovascular: [S1S2 reg], [no murmur], [positive posterior tibial pulse bilateral], sternal tenderness to palpation Lungs: Diffuse rhonchi, no wheezing , [no accessory muscle use] Abdominal: [soft], [ nontender to palpation], [no guarding], [no appreciable organomegaly] Ext: [no gross muscle atrophy], [no edema], [no contractures] Neuro: [ CN II-XI grossly intact], [no focal neuro deficits] Psych: [Alert], [oriented], [appropriate affect] Assessment: Pleuritic chest pain, unclear etiology, may be secondary to ongoing COVID pneumonia with tachypnea -D-dimer elevated -Troponin less than 0.012 -Chest x-ray showing pneumomediastinum -Chest CTA ordered -Primary team notified.
[2021-10-25] MEDS: ALBUTEROL HFA INHALER INHALATION PRN ×2 (07:58→20:49)
[2021-10-25] MEDS: SYMBICORT 160-4.5 MCG INHALER INHALATION SCH ×2 (07:59→20:49)
[2021-10-25] MEDS: FLUTICASONE 110 MCG INHALER INHALATION SCH ×2 (07:59→20:49)
--- NOTE | 2021-10-25 08:46 | CT ---
EXAMINATION TYPE: CT chest angio for PE DATE OF EXAM: 10/25/2021 COMPARISON: None HISTORY: Covid 19, Hypoxia CT DLP: 405.3 mGycm Automated exposure control for dose reduction was used. CONTRAST: CT Chest for pulmonary embolism performed with without and with IV Contrast, patient injected with 10 0 ml mL of Isovue 370. FINDINGS: LUNGS: There is satisfactory contrast opacification of the pulmonary arteries and branches and there is no f illing defect to suggest pulmonary embolism. There is diffuse marked groundglass opacity in the mid and upper lung zones and dense airspace consol idative opacity in the lower lobes consistent with diffuse severe inflammatory process. There is no p leural effusion or pneumothorax. The heart size normal. There is no mediastinal, hilar or axillary adenopathy. IMPRESSION: 1. No evidence of pulmonary embolism. 2. Marked acute cardiopulmonary disease.
[2021-10-25] MEDS: ENOXAPARIN 40 MG/0.4 ML SYRINGE SQ SCH (09:09)
[2021-10-25] MEDS: PANTOPRAZOLE 40 MG TABLET PO SCH (09:09)
[2021-10-25] MEDS: ZINC SULFATE 220 MG CAP PO SCH (09:09)
[2021-10-25] MEDS: ASCORBIC ACID 500 MG TAB PO SCH (09:09)
[2021-10-25] MEDS: BACLOFEN 10 MG TAB PO SCH ×4 (09:09→20:42)
[2021-10-25] MEDS: CHOLECALCIFEROL 25 MCG (1000 IU) TABLET PO SCH (09:10)
[2021-10-25] MEDS: FAMOTIDINE 20 MG TAB PO SCH ×2 (09:10→20:42)
[2021-10-25] MEDS: levETIRAcetam 500 MG TAB PO SCH ×2 (09:34→20:41)
[2021-10-25] MEDS: DEXAMETHASONE SOD PHOSPHATE 10 MG/ML 1 ML VIAL IVP SCH (09:36)
[2021-10-25] MEDS: METOPROLOL SUCCINATE (ER) 25 MG TAB.ER.24H PO SCH ×2 (12:16→20:41)
[2021-10-25 12:47] LABS: C Reactive Protein 9.3 mg/dL (0.00-0.80)
--- NOTE | 2021-10-25 15:00 | P.PN ---
Subjective Progress Note Date: 10/25/21 57-year-old here patient presented to the emergency department because of worsening shortness of breath. The patient was found at home by EMS to be quite hypoxic and apparently her pulse ox was 78% at home. At the exact timing of her sickness cannot be really established as the patient has a chronic illness with glioblastoma multiforme in she has undergone a recent craniotomy and she was dealing with a nonhealing wound on her scalp. She has not been vaccinated for COVID 19. She is known to have chronic bronchial asthma, severe persistent in nature and the patient has been maintained on Dulera/Qvar and addition to Singulair and she has been also receiving Xolair injections on outpatient basis. Her other comorbid conditions also include history of malignant melanoma, hyperlipidemia, acid reflux and the patient had a recent neuro evaluation including a CAT scan of the brain that revealed evidence of multiple lesions with cerebral edema. She was scheduled to undergo further evaluation with neurosurgery. She was also experiencing some mucus and left side of the body and it left facial droop among other neurological deficits. This neuro evaluation was supposed to be done at [facility]. Note that the patient also has history of malignant melanoma. However, the Th neurosurgical findings are consistent with glioblastoma. I'm not sure if the patient had complete resection of this tumor. She is underwent a recent craniotomy. Also, the patient has been maintained on Decadron 4 mg twice a day on outpatient basis In the emergency, the patient tested positive for COVID 19. The patient also had a chest x-ray that showed bilateral pulmonary infiltrates consistent with community related pneumonia. Her white cell count was at 9.3 with hemoglobin of 15.6 and a platelet count of 249. Her BM was at 70 with a creatinine of 0.8 and the sodium level 138.. Glucose was 98. Normal coagulation profile. Normal LFTs. Her troponin was less than 0.01. The patient was accordingly hospitalized. She was started on IV fluids. I this point in time, the patient on several liters about 2 by nasal cannula with a pulse ox of 93%. Note that the patient was already taken steroids on outpatient basis and I believe she was transitioned to Cortef. This switch was done due to a concern a nonhealing wound on her scalp. 10/22/2021, the patient is hospitalized for COVID 19 related pneumonia. She is a complicated case of glioblastoma multiforme he was received surgical resection and the patient has residual tumor in her brain. I sorted emergency department yesterday. I put her on Decadron. I put her on Lovenox. She is also supposed to undergo a CT angiogram of the chest also. Meanwhile, the patient's blood work shows a white cell count of 8.8 and hemoglobin of 12.9, d-dimer was at 0.6, LDH is at 575 and a CRP level is at 6.6. The pro calcitonin level is at 0.12. Rest of the electrodes are all within normal limits. She is able to sit up on a chair. She is calm and comfortable. Breathing is nonlabored. She has left- sided weakness related to her brain tumor. No seizure activity has been noted. 10/23/2021, the patient is in a prone bessie position. She is on high flow oxygen at [address] She [address] a [address] angiogram yesterday and showed no evidence of any pulmonary lives in. The patient had diffuse bilateral groundglass pulmonary infiltrates consistent with Coumadin therapy related pneumonia. Meanwhile, the patient remains on Decadron. She is doing well for now. Decadron is a dose of 6 mg IV every 24 hours. She is also on disability for protocol. She is on day #3 of Remdesivir. No seizure activity. She has weakness on her left side of the body related to a tumor in her brain consistent with glioblastoma multiforme. She remains on Lovenox 4 mg subcu on a daily basis. This is a bit anxious. Denies having any worsening shortness of breath. The blood work from today is still pending. Meanwhile, the LDH level was 575 from the day of admission with a pro calcitonin level of 0.12. D-dimer is at 0.67. The patient is seen today 10/24/2021 in follow-up on the regular medical floor. She is currently resting prone in bed. Awake and alert in no apparent distress. She is maintaining O2 saturation in the low 90s on 15 L high flow nasal cannula is in nonrebreather mask. Throughout the day she desaturated to 85%. She was transitioned to AirVo high flow oxygen at 40 L and percent FiO2 with a O2 saturation 95%. Temperature 99.2 axillary. Blood pressure stable. White count 13.6. Hemoglobin 13.7. Lymphocytes 0.8. Sodium 136. Potassium 3.1. Creatinine 0.84. LDH 2166. C-reactive protein 5.0. He is continued on Dec adron, Lovenox, vitamin supplements. Day #4 of Remdesivir. The patient is seen today 10/25/2021 in follow-up on the regular medical floor. Earlier this morning she had some worsening hypoxemia and a rapid response team was called. She was initially placed on BiPAP and is currently back on AirVo high flow oxygen at 60 L and 92% FiO2. O2 saturation back in the high 80s and low 90s. She is also utilizing a nonrebreather mask. There is no evidence of pulmonary embolism on CT angiogram. However there is diffuse marked groundglass opacities in the lungs bilaterally. There is also extensive pneumomediastinum present. D-dimer 2.64. LDH 890. C-reactive protein 9.3. She is continued on Decadron, Lovenox, vitamin supplements. This is day #5 of Remdesivir Objective - Vital Signs Vital signs: Vital Signs Temp 99.8 F H 10/25/21 14:00 Pulse 107 H 10/25/21 14:00 Resp 24 10/25/21 14:00 BP 96/61 10/25/21 14:00 Pulse Ox 88 L 10/25/21 14:00 Intake & Output 10/24/21 10/25/21 10/25/21 18:59 06:59 18:59 Intake Total 180 Balance 180 Intake: Oral 180 Other: # Voids 2 - Exam General appearance: alert, 51-year-old female patient, now requiring AirVo high flow oxygen at 60 L and 92% FiO2 plus a nonrebreather mask., patient is having some mild respiratory distress Head exam: Present: atraumatic, normocephalic, normal inspection Eye exam: Present: normal appearance, PERRL, EOMI. Absent: scleral icterus, conjunctival injection, periorbital swelling ENT exam: Present: normal exam, mucous membranes moist Neck exam: Present: normal inspection. Absent: tenderness, meningismus, lymphadenopathy Respiratory exam: Present: wheezes, crackles in the posterior bases, decreased breath sounds. Cardiovascular Exam: Present: normal rhythm, tachycardia, normal heart sounds. Absent: systolic murmur, diastolic murmur, rubs, gallop, clicks Neurological exam: Present: alert, oriented X3, the patient has a healed the scalp wound postcraniotomy Skin exam: Present: warm, dry, intact, normal color. Absent: rash - Labs CBC & Chem 7: 10/24/21 09:02 10/24/21 09:02 Labs: Abnormal Lab Results - Last 24 Hours (Table) 10/25/21 10/25/21 Range/Units 04:04 04:05 D-Dimer 2.64 H (<0.60) mg/L FEU Lactate Dehydrogenase 890 H (120-246) U/L C-Reactive Protein 9.30 H (0.00-0.80) mg/dL Assessment and Plan Assessment: 1 acute COVID 19 related pneumonia with secondary respiratory distress and hypoxemia unable to establish the exact timing of her symptoms as the patient has been chronically ill. On a combination of Decadron and Remdesivir. We gave her the benefit of the doubt of Remdesivir treatment and combination with Decadron. Note that the Remdesivir day #5 and the patient now on AirVo high flow oxygen at 60 L and 92% FiO2. Follow up CAT scan of the chest showed no michelle dence of any pulmonary embolism. There was diffuse bilateral ground glass pulmonary infiltrates consistent with COVID 19 infection. There is also noted significant pneumomediastinum. 2 acute hypoxic respiratory failure secondary to above and the patient is currently on 15 L approximately nasal cannula. The patient's chest x-ray showing limited lower lobe pulmonary infiltrates 3 severe persistent bronchial asthma managed on outpatient basis with a combination of Dulera/Qvar in addition to Singulair and Xolair injections. 4 history of glioblastoma of the brain, as the patient was found to have a mass involving the right parietal lobe of the brain, resected surgically. The patient has developed left-sided paresis. The patient has a sacral 12 the lesions and she has 2 additional lesions and she is supposed to receive radiation therapy at a later stage. She had issues with nonhealing scalp wound and for that reason the radiation was delayed. Her wound is currently healed. 5 history of melanoma of the skin, resected 6 hyperlipidemia 7 history of kidney stones Plan: The patient was seen and evaluated Required rapid response team evaluation today CT angiogram ruled out pulmonary embolism There is still significant groundglass opacities bilaterally There is significant pneumomediastinum Currently on AirVo high flow oxygen at 60 L and 92% FiO2 Continue Decadron, Lovenox, vitamin supplements Day #5 of Remdesivir Prognosis is quite guarded She is a DO NOT RESUSCITATE/DO NOT INTUBATE CODE STATUS We left a message for her to call us for an update We will continue to follow
[2021-10-25] MEDS: REMDESIVIR 100 MG in SODIUM CHLORIDE 0.9% 250 ML IVPB SCH (20:15)
[2021-10-25] MEDS: MONTELUKAST 10 MG TAB PO SCH (20:41)
[2021-10-25] MEDS: traZODone HCL 50 MG TAB PO SCH (20:42)
[2021-10-25] MEDS: ATORVASTATIN 10 MG TAB PO SCH (20:42)
[2021-10-25] MEDS ORDERED: ALPRAZolam 0.25 MG TAB PO STA (23:35)
--- NOTE | 2021-10-25 23:47 | P.PN ---
Subjective Progress Note Date: 10/24/21 Principal diagnosis: Acute hypoxic failure secondary to COVID-19 pneumonia Patient is a 51-year-old female with a known history of brain tumor/glioblastoma with the recent surgery, asthma, GERD and history of esophageal dysmotility, hyperlipidemia and other medical problems presents ER with complaints of shortness of breath. Patient has been having shortness of breath worsening for the past 10-12 days. Patient had recent brain surgery. EMS was called due to worsening symptoms and found to be hypoxic with pulse ox 78%. Patient was brought to the hospital for evaluation. Otherwise patient denied any fever or chills. No nausea vomiting or abdominal pain or diarrhea. No loss of taste or smell sensation 15 L any sick contacts. Patient was tested positive for COVID-1 9 infection. Patient was placed on nasal cannula oxygen at 6 L. Chest x-ray showed mild bibasilar infiltrates. Atelectasis and pneumonia as well as atypical pneumonia could be considered. Next and laboratory data showed the recent 9.3 hemoglobin 10.6 and platelets 249 Sodium 138 potassium 4.1 chloride 103 BUN 17 and creatinine 0.82 AST 49 ALT 50, LDH 575 ferritin 559 d-dimer 0.67 and CRP 6.6 Progress toward level is 0.12 COVID-19 PCR detected still complaining of shortness of breath requiring 12-21 Patient is currently in selective unit. Requiring oxygen at 15 L by nasal cannula and nonrebreather. No complaints of fever or chills. No compressive chest pain. No nausea vomiting or abdominal pain or diarrhea. Patient is awake alert and oriented 3. Laboratory data showed WBC 8.8 hemoglobin 12.9 and platelets 2:15 lymphocytes 0.8 BUN 17 and creatinine 0.76, AST 37 ALT 37 alk phos 76 and progressed and was 0.12. Patient is being continued on dexamethasone, Lovenox and Remdesivir. Nares on board. Continued on DuoNeb's and Flovent. 10/23/2021 Patient is still on 15 L oxygen via nasal cannula. CT angiogram showed no evidence of PE. Diffuse bilateral groundglass pulmonary infiltrates consistent with COVID-19 19 pneumonia. Patient is being treated on dexamethasone, Lovenox and also onday #3 of Remdesivir. No complex of chest pain. Denied any worsening shortness of breath. Still having exertional dyspnea. Patient denied any nausea vomiting or abdominal pain or diarrhea. Laboratory data reviewed. 10/24/2021 Patient is currently lying in bed. Awake alert and oriented x3. Feels anxious. No complaints of chest pain. Breathing status is better. Still requiring o xygen at 15 L via nasal cannula and also nonrebreather. Patient is saturating at around 85%. Was transitioned to high flow oxygen Airvo 40 L. T-max is 99.2. Laboratory data showed WBC 13.6 hemoglobin 13.7 platelets 335 lymphocytes 0.8 sodium 136 potassium 3.1 which was replaced. Blood sugar is 72 LDH 216 CRP 5.0 Pulmonary is following.Patient is being current dexamethasone Lovenox and remdesivir course. Current medications reviewed. Objective - Vital Signs Vital signs: Vital Signs Temp 99.2 F 10/24/21 14:16 Pulse 102 H 10/24/21 14:04 Resp 20 10/24/21 14:16 BP 102/66 10/24/21 14:06 Pulse Ox 95 10/24/21 14:32 Intake & Output 10/23/21 10/24/21 10/24/21 18:59 06:59 18:59 Other: Voiding Method Bedside Commode # Voids 3 1 - Exam PHYSICAL EXAMINATION: Patient is lying in the bed comfortably, no acute distress, awake alert and oriented.. HEENT: Normocephalic. Neck is supple. Pupils reactive. Nostrils clear. Oral cavity is moist. Neck reveals no JVD, carotid bruits, or thyromegaly. CHEST EXAMINATION: Trachea is central. Symmetrical expansion. Expiratory wheeze. Nonlabored breathing. Scattered rhonchi.. CARDIAC: Normal S1, S2 with no gallops. No murmurs ABDOMEN: Soft. Bowel sounds normal. No organomegaly. No abdominal bruits. Extremities: reveal no edema. No clubbing or cyanosis Neurologically awake, alert, oriented x3 with well-coordinated movements. No focal deficits noted Skin: No rash or skin lesions. Psychiatric: Coperative. Nonsuicidal, anxious. Musculoskeletal: No joint swelling or deformity. Normal range of motion. - Labs CBC & Chem 7: 10/24/21 09:02 10/24/21 09:02 Labs: Abnormal Lab Results - Last 24 Hours (Table) 10/24/21 10/24/21 Range/Units 09:02 09:02 WBC 13.6 H (3.8-10.6) k/uL Neutrophils # 12.4 H (1.3-7.7) k/uL Lymphocytes # 0.8 L (1.0-4.8) k/uL Sodium 136 L (137-145) mmol/L Potassium 3.1 L (3.5-5.1) mmol/L Glucose 72 L (74-99) mg/dL Lactate Dehydrogenase 2166 H (313-618) U/L C-Reactive Protein 5.0 H (<1.0) mg/dL Assessment and Plan Assessment: Acute hypoxic respiratory failure secondary to COVID-19 pneumonia Acute COVID-19 pneumonia. Severe persistent asthma on outpatient follow up with pulmonary and currently on Qvar, Singulair and insulin injections. History of right sided glioblastoma of the brain status post recent surgery about a month ago. Does have left-sided addresses secondary to that. History of melanoma the skin resected Hyperlipidemia History of renal stones GERD History of esophageal dysmotility Anxiety. CODE STATUS is DO NOT RESUSCITATE/DO NOT INTUBATE DVT prophylaxis. Plan: Patient will be continued on dexamethasone 6 mg daily, Lovenox subcu and multivitamins. Continued with oxygen supplementation to keep the saturation above 92%. Currently at 15 L Continue the home medications and follow closely. Follow up intermittently markings. Pulmonary was consulted. Prognosis is guarded this time. Time with Patient: Greater than 30
--- NOTE | 2021-10-25 23:50 | P.PN ---
Subjective Progress Note Date: 10/25/21 Principal diagnosis: Acute hypoxic failure secondary to COVID-19 pneumonia Patient is a 51-year-old female with a known history of brain tumor/glioblastoma with the recent surgery, asthma, GERD and history of esophageal dysmotility, hyperlipidemia and other medical problems presents ER with complaints of shortness of breath. Patient has been having shortness of breath worsening for the past 10-12 days. Patient had recent brain surgery. EMS was called due to worsening symptoms and found to be hypoxic with pulse ox 78%. Patient was brought to the hospital for evaluation. Otherwise patient denied any fever or chills. No nausea vomiting or abdominal pain or diarrhea. No loss of taste or smell sensation 15 L any sick contacts. Patient was tested positive for COVID-1 9 infection. Patient was placed on nasal cannula oxygen at 6 L. Chest x-ray showed mild bibasilar infiltrates. Atelectasis and pneumonia as well as atypical pneumonia could be considered. Next and laboratory data showed the recent 9.3 hemoglobin 10.6 and platelets 249 Sodium 138 potassium 4.1 chloride 103 BUN 17 and creatinine 0.82 AST 49 ALT 50, LDH 575 ferritin 559 d-dimer 0.67 and CRP 6.6 Progress toward level is 0.12 COVID-19 PCR detected still complaining of shortness of breath requiring 12-21 Patient is currently in selective unit. Requiring oxygen at 15 L by nasal cannula and nonrebreather. No complaints of fever or chills. No compressive chest pain. No nausea vomiting or abdominal pain or diarrhea. Patient is awake alert and oriented 3. Laboratory data showed WBC 8.8 hemoglobin 12.9 and platelets 2:15 lymphocytes 0.8 BUN 17 and creatinine 0.76, AST 37 ALT 37 alk phos 76 and progressed and was 0.12. Patient is being continued on dexamethasone, Lovenox and Remdesivir. Nares on board. Continued on DuoNeb's and Flovent. 10/23/2021 Patient is still on 15 L oxygen via nasal cannula. CT angiogram showed no evidence of PE. Diffuse bilateral groundglass pulmonary infiltrates consistent with COVID-19 19 pneumonia. Patient is being treated on dexamethasone, Lovenox and also onday #3 of Remdesivir. No complex of chest pain. Denied any worsening shortness of breath. Still having exertional dyspnea. Patient denied any nausea vomiting or abdominal pain or diarrhea. Laboratory data reviewed. 10/24/2021 Patient is currently lying in bed. Awake alert and oriented x3. Feels anxious. No complaints of chest pain. Breathing status is better. Still requiring o xygen at 15 L via nasal cannula and also nonrebreather. Patient is saturating at around 85%. Was transitioned to high flow oxygen Airvo 40 L. T-max is 99.2. Laboratory data showed WBC 13.6 hemoglobin 13.7 platelets 335 lymphocytes 0.8 sodium 136 potassium 3.1 which was replaced. Blood sugar is 72 LDH 216 CRP 5.0 Pulmonary is following.Patient is being current dexamethasone Lovenox and remdesivir course. 10/25/2021 Patient is currently lying in the bed. Awake alert and oriented. Patient did have an episode of substernal pleuritic chest pain this morning. CTA was ordered. D-dimer level is 2.64 CTA showed no evidence of pulmonary embolism. Marked acute cardiopulmonary disease. Otherwise patient has been afebrile and still requiring oxygen at 15 L via nonrebreather. Currently being current on dexamethasone Lovenox and remdesivir. Patient was initiated on baricitinib as per pulmonary. Current medications reviewed. Current medications reviewed. Objective - Vital Signs Vital signs: Vital Signs Temp 99.1 F 10/25/21 18:52 Pulse 86 10/25/21 18:52 Resp 24 10/25/21 18:52 BP 99/72 10/25/21 18:52 Pulse Ox 94 L 10/25/21 18:52 Intake & Output 10/25/21 10/25/21 10/26/21 06:59 18:59 06:59 Intake Total 400 Balance 400 Intake: Oral 400 Other: # Voids 2 # Bowel Movements 1 - Exam PHYSICAL EXAMINATION: Patient is lying in the bed comfortably, no acute distress, awake alert and oriented.. HEENT: Normocephalic. Neck is supple. Pupils reactive. Nostrils clear. Oral cavity is moist. Neck reveals no JVD, carotid bruits, or thyromegaly. CHEST EXAMINATION: Trachea is central. Symmetrical expansion. Expiratory wheeze. Nonlabored breathing. Scattered rhonchi.. CARDIAC: Normal S1, S2 with no gallops. No murmurs ABDOMEN: Soft. Bowel sounds normal. No organomegaly. No abdominal bruits. Extremities: reveal no edema. No clubbing or cyanosis Neurologically awake, alert, oriented x3 with well-coordinated movements. No focal deficits noted Skin: No rash or skin lesions. Psychiatric: Coperative. Nonsuicidal, anxious. Musculoskeletal: No joint swelling or deformity. Normal range of motion. - Labs CBC & Chem 7: 10/24/21 09:02 10/24/21 09:02 Labs: Abnormal Lab Results - Last 24 Hours (Table) 10/25/21 10/25/21 Range/Units 04:04 04:05 D-Dimer 2.64 H (<0.60) mg/L FEU Lactate Dehydrogenase 890 H (120-246) U/L C-Reactive Protein 9.30 H (0.00-0.80) mg/dL Assessment and Plan Assessment: Acute hypoxic respiratory failure secondary to COVID-19 pneumonia Acute COVID-19 pneumonia. Severe persistent asthma on outpatient follow up with pulmonary and currently on Qvar, Singulair and insulin injections. History of right sided glioblastoma of the brain status post recent surgery about a month ago. Does have left-sided addresses secondary to that. History of melanoma the skin resected Hyperlipidemia History of renal stones GERD History of esophageal dysmotility Anxiety. CODE STATUS is DO NOT RESUSCITATE/DO NOT INTUBATE DVT prophylaxis. Plan: Patient will be continued on dexamethasone 6 mg daily, Lovenox subcu and multivitamins. Patient was started on remdesivir course. Change to baricitinib as per pulmonary recommendations. Continued with oxygen supplementation to keep the saturation above 92%. Currently at 15 L Continue the home medications and follow closely. Follow up intermittently markings. Pulmonary is following. Prognosis is guarded this time. Time with Patient: Greater than 30
[2021-10-26] MEDS ORDERED: diphenhydrAMINE 50 MG/ML 1 ML VIAL IVP STA (03:09)
[2021-10-26] MEDS ORDERED: methylPREDNISolone SOD SUCCI 125 MG/2 ML VIAL IV STA (03:10)
[2021-10-26] MEDS: FAMOTIDINE 20 MG/2 ML VIAL IV SCH ×2 (03:33→21:44)
[2021-10-26] MEDS: BARICITINIB 2 MG TABLET PO SCH ×2 (04:30→08:42)
[2021-10-26] MEDS: SODIUM CHLORIDE 0.9% 1,000 ML IV SCH ×2 (04:30→15:03)
[2021-10-26] MEDS: ALBUTEROL HFA INHALER INHALATION PRN ×2 (07:16→11:53)
[2021-10-26] MEDS: FLUTICASONE 110 MCG INHALER INHALATION SCH ×2 (07:16→19:13)
[2021-10-26] MEDS: SYMBICORT 160-4.5 MCG INHALER INHALATION SCH ×2 (07:16→19:14)
[2021-10-26] MEDS: BACLOFEN 10 MG TAB PO SCH ×4 (08:41→21:42)
[2021-10-26] MEDS: ASCORBIC ACID 500 MG TAB PO SCH (08:41)
[2021-10-26] MEDS: ENOXAPARIN 40 MG/0.4 ML SYRINGE SQ SCH (08:41)
[2021-10-26] MEDS: levETIRAcetam 500 MG TAB PO SCH ×2 (08:41→21:42)
[2021-10-26] MEDS: ZINC SULFATE 220 MG CAP PO SCH (08:41)
[2021-10-26] MEDS: FAMOTIDINE 20 MG TAB PO SCH ×2 (08:41→21:43)
[2021-10-26] MEDS: PANTOPRAZOLE 40 MG TABLET PO SCH (08:41)
[2021-10-26] MEDS: methylPREDNISolone SOD SUCCI 125 MG/2 ML VIAL IV SCH ×3 (08:42→16:46)
[2021-10-26] MEDS: diphenhydrAMINE 50 MG/ML 1 ML VIAL IVP SCH ×3 (08:42→16:46)
[2021-10-26] MEDS: METOPROLOL SUCCINATE (ER) 25 MG TAB.ER.24H PO SCH ×2 (08:42→21:43)
[2021-10-26] MEDS: CHOLECALCIFEROL 25 MCG (1000 IU) TABLET PO SCH (08:43)
[2021-10-26] MEDS ORDERED: diphenhydrAMINE 50 MG/ML 1 ML VIAL IVP PRN (09:00)
[2021-10-26 10:44] LABS: Basophils # (A) 0.03 X 10*3/uL (0.00-0.10); Basophils % (A) 0.2 %; Eosinophils # (A) 0.01 X 10*3/uL (0.04-0.35); Eosinophils % (A) 0.1 %; HCT 38.4 % (37.2-46.3); HGB 12.6 g/dL (12.0-15.0); Lymphocytes # (A) 0.44 X 10*3/uL (0.90-5.00); Lymphocytes % (A) 2.7 %; MCH 30.7 pg (27.0-32.0); MCHC 32.8 g/dL (32.0-37.0); MCV 93.7 fL (80.0-97.0); Mean Platelet Volume 10.5 fL (9.5-12.2); Monocytes # (A) 0.24 X 10*3/uL (0.20-1.00); Monocytes % (A) 1.5 %; Neutrophils % (A) 94.6 %; Platelet Count 363 X 10*3/uL (140-440); RDW 15.3 % (11.5-14.5); WBC 16.46 X 10*3/uL (4.50-10.00)
[2021-10-26 10:58] LABS: African American GFR (CKD) 115.5 (60.0-200.0); Anion Gap 14.7 mmol/L (10.00-18.00); BUN/Creat Ratio 17.43 Ratio (12.00-20.00); Blood Urea Nitrogen 12.2 mg/dL (9.0-27.0); C Reactive Protein 14.9 mg/dL (0.00-0.80); Calcium 8.7 mg/dL (8.7-10.3); Carbon Dioxide 20.3 mmol/L (20.0-27.5); Non-African American GFR(CKD) 99.6 (60.0-200.0); Potassium 3.8 mmol/L (3.5-5.5)
--- NOTE | 2021-10-26 17:14 | P.PN ---
Subjective Progress Note Date: 10/26/21 Principal diagnosis: Dyspnea On 10/26/2001 patient seen in follow-up on medical surgical floor, she is currently on BiPAP support with pressures of 15 and 5 and FiO2 of 100%, her pulse ox is 99-100%, she is weak, she is resting in bed, but she is awake and alert, she responding appropriately, she states she feels about the same, no worsening dyspnea, she remains on IV Solu-Medrol 60 mg every 6 hours, she is on prophylactic dose Lovenox 40 mg daily, and she was started on Baricitinib review of worsening hypoxia. CT angiogram of the chest showed no evidence of pulmonary embolism, he did not diffuse marked groundglass opacities in the upper lung zones and dense airspace consolidative opacity in the lower zone consistent with diffuse severe inflammatory process. Today's labs have been reviewed, white blood cell count is 16.4, increased compared to yesterday's value, hemoglobin is 12.6, labs d-dimer from yesterday was 2.64, electrolytes and renal profile were unremarkable, CRP is 14.9, trending up, and her last d-dimer from yesterday was improving compared the previous value. Pro-calcitonin level was negative at 0.12. Objective - Vital Signs Vital signs: Vital Signs Temp 99.8 F H 10/26/21 14:00 Pulse 109 H 10/26/21 14:00 Resp 36 H 10/26/21 14:00 BP 135/75 10/26/21 14:00 Pulse Ox 98 10/26/21 15:21 Intake & Output 10/25/21 10/26/21 10/26/21 18:59 06:59 18:59 Intake Total 400 Balance 400 Intake: Oral 400 Other: # Voids 2 1 3 # Bowel Movements 1 4 - Exam GENERAL EXAM: Alert, very pleasant, 51-year-old white female, on BiPAP support, with pressures of 15 and 100%, and face looks very swollen, patient is dyspneic and tachypneic, but no acute respiratory distress, she is awake and oriented 3, and her questions appropriately HEAD: Normocephalic/atraumatic. EYES: Normal reaction of pupils, equal size. Conjunctiva pink, sclera white. NOSE: Clear with pink turbinates. THROAT: No erythema or exudates. NECK: No masses, no JVD, no thyroid enlargement, no adenopathy. CHEST: No chest wall deformity. Symmetrical expansion. LUNGS: Equal air entry with diffuse crackles, a few wheezes CVS: Regular rate and rhythm, normal S1 and S2, no gallops, no murmurs, no rubs ABDOMEN: Soft, nontender. No hepatosplenomegaly, normal bowel sounds, no guarding or rigidity. EXTREMITIES: No clubbing, no edema, no cyanosis, 2+ pulses and upper and lower extremities. MUSCULOSKELETAL: Muscle strength and tone normal. SPINE: No scoliosis or deformity SKIN: No rashes CENTRAL NERVOUS SYSTEM: Alert and oriented -3. No focal deficits, tone is normal in all 4 extremities. PSYCHIATRIC: Alert and oriented -3. Appropriate affect. Intact judgment and insight. - Labs CBC & Chem 7: 10/26/21 06:59 10/26/21 06:59 Labs: Abnormal Lab Results - Last 24 Hours (Table) 10/26/21 10/26/21 Range/Units 06:59 06:59 WBC 16.46 H (4.50-10.00) X 10*3/uL RDW 15.3 H (11.5-14.5) % Immature Gran # 0.14 H (0.00-0.04) X 10*3/uL Neutrophils # 15.60 H (1.80-7.70) X 10*3/uL Lymphocytes # 0.44 L (0.90-5.00) X 10*3/uL Eosinophils # 0.01 L (0.04-0.35) X 10*3/uL C-Reactive Protein 14.90 H (0.00-0.80) mg/dL Assessment and Plan Plan: Assessment: #1. Acute COVID-19 related pneumonia, patient has completed Remdesivir, she continues on Decadron, she was started on Baricitinib on 10/25/2021 for worsening hypoxia. Follow-up CTA scan of the chest showed no evidence of any pulmonary embolism. There are diffuse bilateral groundglass pulmonary infiltrates consistent with COVID-19 infection. There is also significant pneumomediastinum #2. Acute hypoxic respiratory failure related to the above, currently patient is on BiPAP support with Corrigan is a 15 of 5 and FiO2 of 100% #3. Severe persistent bronchial asthma, managed on outpatient basis with the combination of delirium/Qvar in addition to Singulair and Xolair injections #4. History of glioblastoma the brain, involving the right parietal lobe of the brain, resected surgically. Patient has developed left-sided paresis, patient has additional lesions that she supposed to receive radiation therapy for at a later stage. Patient is having issues with nonhealing scalp wound and for that reason the radiation has been delayed. Her wound is currently healed #5. History of melanoma the skin, resected #6. Hyperlipidemia #7. History of kidney stones Plan: Continue Bipap support, wean FiO2 to keep O2 sats ration is at 90-92%, and FiO2 has been dropped down to 80% Give the trial on Airvo if tolerates it Continue Baricitinib, Solu-Medrol and current dose Lovenox CT angiogram has been reviewed showing no pulmonary embolism CODE STATUS is DO NOT RESUSCITATE, DO NOT INTUBATE We'll continue supportive treatment Overall prognosis is extremely guarded If continues to deteriorate, recommend for family to consider hospice palliative care I performed a history & physical examination of the patient and discussed their management with my nurse practitioner, Cristina Angeles. I reviewed the nurse practitioner's note and agree with the documented findings and plan of care. Lung sounds are positive for diffuse wheezes throughout the lung hess. The findings and the impression was discussed with the patient. I attest to the documentation by the nurse practitioner. Time with Patient: Less than 30
[2021-10-26] MEDS: MONTELUKAST 10 MG TAB PO SCH (21:42)
[2021-10-26] MEDS: ATORVASTATIN 10 MG TAB PO SCH (21:42)
[2021-10-26] MEDS: traZODone HCL 50 MG TAB PO SCH (21:42)
[2021-10-27] MEDS: methylPREDNISolone SOD SUCCI 125 MG/2 ML VIAL IV SCH ×3 (00:36→12:41)
[2021-10-27] MEDS: diphenhydrAMINE 50 MG/ML 1 ML VIAL IVP SCH ×3 (00:36→12:41)
[2021-10-27] MEDS: ALBUTEROL HFA INHALER INHALATION PRN ×2 (07:55→12:42)
[2021-10-27] MEDS: FLUTICASONE 110 MCG INHALER INHALATION SCH ×2 (07:55→21:09)
[2021-10-27] MEDS: SYMBICORT 160-4.5 MCG INHALER INHALATION SCH ×2 (07:55→21:04)
[2021-10-27] MEDS: FAMOTIDINE 20 MG/2 ML VIAL IV SCH ×2 (09:39→09:40)
[2021-10-27] MEDS: levETIRAcetam 500 MG TAB PO SCH ×2 (09:39→21:09)
[2021-10-27] MEDS: BARICITINIB 2 MG TABLET PO SCH (09:39)
[2021-10-27] MEDS: ENOXAPARIN 40 MG/0.4 ML SYRINGE SQ SCH ×2 (09:39→09:40)
[2021-10-27] MEDS: ALPRAZolam 0.5 MG TAB PO PRN ×3 (09:39→21:55)
[2021-10-27] MEDS: CHOLECALCIFEROL 25 MCG (1000 IU) TABLET PO SCH (09:40)
[2021-10-27] MEDS: PANTOPRAZOLE 40 MG TABLET PO SCH (09:40)
[2021-10-27] MEDS: ASCORBIC ACID 500 MG TAB PO SCH (09:40)
[2021-10-27] MEDS: ZINC SULFATE 220 MG CAP PO SCH (09:40)
[2021-10-27] MEDS: BACLOFEN 10 MG TAB PO SCH ×4 (09:40→21:11)
[2021-10-27 10:38] LABS: Basophils # (A) 0.02 X 10*3/uL (0.00-0.10); Basophils % (A) 0.1 %; Eosinophils # (A) 0 X 10*3/uL (0.04-0.35); Eosinophils % (A) 0 %; HCT 39.7 % (37.2-46.3); HGB 12.7 g/dL (12.0-15.0); Lymphocytes # (A) 0.62 X 10*3/uL (0.90-5.00); Lymphocytes % (A) 3.7 %; MCH 30.4 pg (27.0-32.0); Mean Platelet Volume 10.3 fL (9.5-12.2); Monocytes # (A) 0.41 X 10*3/uL (0.20-1.00); Monocytes % (A) 2.4 %; Neutrophils # (A) 15.58 X 10*3/uL (1.80-7.70); Neutrophils % (A) 92.8 %; Platelet Count 395 X 10*3/uL (140-440); RBC 4.18 X 10*6/uL (4.10-5.20); RDW 15.5 % (11.5-14.5); WBC 16.79 X 10*3/uL (4.50-10.00)
--- NOTE | 2021-10-27 11:42 | P.PN ---
Subjective Progress Note Date: 10/26/21 Principal diagnosis: Acute hypoxic failure secondary to COVID-19 pneumonia Patient is a 51-year-old female with a known history of brain tumor/glioblastoma with the recent surgery, asthma, GERD and history of esophageal dysmotility, hyperlipidemia and other medical problems presents ER with complaints of shortness of breath. Patient has been having shortness of breath worsening for the past 10-12 days. Patient had recent brain surgery. EMS was called due to worsening symptoms and found to be hypoxic with pulse ox 78%. Patient was brought to the hospital for evaluation. Otherwise patient denied any fever or chills. No nausea vomiting or abdominal pain or diarrhea. No loss of taste or smell sensation 15 L any sick contacts. Patient was tested positive for COVID-1 9 infection. Patient was placed on nasal cannula oxygen at 6 L. Chest x-ray showed mild bibasilar infiltrates. Atelectasis and pneumonia as well as atypical pneumonia could be considered. Next and laboratory data showed the recent 9.3 hemoglobin 10.6 and platelets 249 Sodium 138 potassium 4.1 chloride 103 BUN 17 and creatinine 0.82 AST 49 ALT 50, LDH 575 ferritin 559 d-dimer 0.67 and CRP 6.6 Progress toward level is 0.12 COVID-19 PCR detected still complaining of shortness of breath requiring 12-21 Patient is currently in selective unit. Requiring oxygen at 15 L by nasal cannula and nonrebreather. No complaints of fever or chills. No compressive chest pain. No nausea vomiting or abdominal pain or diarrhea. Patient is awake alert and oriented 3. Laboratory data showed WBC 8.8 hemoglobin 12.9 and platelets 2:15 lymphocytes 0.8 BUN 17 and creatinine 0.76, AST 37 ALT 37 alk phos 76 and progressed and was 0.12. Patient is being continued on dexamethasone, Lovenox and Remdesivir. Nares on board. Continued on DuoNeb's and Flovent. 10/23/2021 Patient is still on 15 L oxygen via nasal cannula. CT angiogram showed no evidence of PE. Diffuse bilateral groundglass pulmonary infiltrates consistent with COVID-19 19 pneumonia. Patient is being treated on dexamethasone, Lovenox and also onday #3 of Remdesivir. No complex of chest pain. Denied any worsening shortness of breath. Still having exertional dyspnea. Patient denied any nausea vomiting or abdominal pain or diarrhea. Laboratory data reviewed. 10/24/2021 Patient is currently lying in bed. Awake alert and oriented x3. Feels anxious. No complaints of chest pain. Breathing status is better. Still requiring o xygen at 15 L via nasal cannula and also nonrebreather. Patient is saturating at around 85%. Was transitioned to high flow oxygen Airvo 40 L. T-max is 99.2. Laboratory data showed WBC 13.6 hemoglobin 13.7 platelets 335 lymphocytes 0.8 sodium 136 potassium 3.1 which was replaced. Blood sugar is 72 LDH 216 CRP 5.0 Pulmonary is following.Patient is being current dexamethasone Lovenox and remdesivir course. 10/25/2021 Patient is currently lying in the bed. Awake alert and oriented. Patient did have an episode of substernal pleuritic chest pain this morning. CTA was ordered. D-dimer level is 2.64 CTA showed no evidence of pulmonary embolism. Marked acute cardiopulmonary disease. Otherwise patient has been afebrile and still requiring oxygen at 15 L via nonrebreather. Currently being current on dexamethasone Lovenox and remdesivir. Patient was initiated on baricitinib as per pulmonary. 10/26/2021 Patient is currently in the medical floor. On BiPAP 15 x 5 with FiO2 100%. Patient is very anxious and feeling weak. Patient is being current on IV sorbitol every 6 hourly and Lovenox subcu. Patient was started on., Baricitinib. Due to worsening shortness of breath and hypoxia CT angiogram was done showed no evidence of PE. Marked acute pulmonary disease. Extra laboratory data showed WBC 16.4 hemoglobin 12.6 and platelets 363 Sodium 141 potassium 3.8 chloride 106 BUN 12.2 and creatinine 0.7 and CRP went up to 14.9. Current medications reviewed. Objective - Vital Signs Vital signs: Vital Signs Temp 97.9 F 10/26/21 18:00 Pulse 100 10/26/21 18:00 Resp 30 H 10/26/21 18:00 BP 143/85 10/26/21 18:00 Pulse Ox 90 L 10/26/21 18:00 Intake & Output 10/26/21 10/26/21 10/27/21 06:59 18:59 06:59 Other: # Voids 1 3 # Bowel Movements 4 - Exam PHYSICAL EXAMINATION: Patient is lying in the bed comfortably. Patient is awake alert anxious.. On BiPAP.... HEENT: Normocephalic. Neck is supple. Pupils reactive. Nostrils clear. Oral cavity is moist. Neck reveals no JVD, carotid bruits, or thyromegaly. CHEST EXAMINATION: Trachea is central. Symmetrical expansion. Expiratory wheeze. Nonlabored breathing. Scattered rhonchi.. CARDIAC: Normal S1, S2 with no gallops. No murmurs ABDOMEN: Soft. Bowel sounds normal. No organomegaly. No abdominal bruits. Extremities: reveal no edema. No clubbing or cyanosis Neurologically awake, alert, oriented x3 with well-coordinated movements. No focal deficits noted Skin: No rash or skin lesions. Psychiatric: Coperative. Nonsuicidal, anxious. Musculoskeletal: No joint swelling or deformity. Normal range of motion. - Labs CBC & Chem 7: 10/27/21 05:14 10/26/21 06:59 Labs: Abnormal Lab Results - Last 24 Hours (Table) 10/26/21 10/26/21 Range/Units 06:59 06:59 WBC 16.46 H (4.50-10.00) X 10*3/uL RDW 15.3 H (11.5-14.5) % Immature Gran # 0.14 H (0.00-0.04) X 10*3/uL Neutrophils # 15.60 H (1.80-7.70) X 10*3/uL Lymphocytes # 0.44 L (0.90-5.00) X 10*3/uL Eosinophils # 0.01 L (0.04-0.35) X 10*3/uL C-Reactive Protein 14.90 H (0.00-0.80) mg/dL Assessment and Plan Assessment: Acute hypoxic respiratory failure secondary to COVID-19 pneumonia. Requiring BiPAP Acute COVID-19 pneumonia. Severe persistent asthma on outpatient follow up with pulmonary and currently on Qvar, Singulair and insulin injections. History of right sided glioblastoma of the brain status post recent surgery about a month ago. Does have left-sided addresses secondary to that. History of melanoma the skin resected Hyperlipidemia History of renal stones GERD History of esophageal dysmotility Anxiety. CODE STATUS is DO NOT RESUSCITATE/DO NOT INTUBATE DVT prophylaxis. Plan: Patient will be continued IV Solu-Medrol 60 mg every 6 hourly., Lovenox subcu and multivitamins. Patient was started on remdesivir course. Change to baricitinib as per pulmonary recommendations due to worsening respiratory status.. Continued with oxygen supplementation to keep the saturation above 92%. Currently on BiPAP. Continue the home medications and follow closely. Follow up intermittently markings. Pulmonary is following. Prognosis is guarded this time. Time with Patient: Greater than 30
[2021-10-27 11:48] LABS: African American GFR (CKD) 106.7 (60.0-200.0); Albumin 3.1 g/dL (3.8-4.9); Albumin/Globulin Ratio 1.13 (1.60-3.17); Anion Gap 17.2 mmol/L (10.00-18.00); BUN/Creat Ratio 27.71 Ratio (12.00-20.00); Blood Urea Nitrogen 20.7 mg/dL (9.0-27.0); Calcium 8.9 mg/dL (8.7-10.3); Carbon Dioxide 20.4 mmol/L (20.0-27.5); Globulin 2.7 g/dL (1.6-3.3); Non-African American GFR(CKD) 92.1 (60.0-200.0); Potassium 3.9 mmol/L (3.5-5.5); Total Bilirubin 0.4 mg/dL (0.30-1.20); Total Protein 5.8 g/dL (6.2-8.2)
[2021-10-27 13:29] VITALS: BMI 29.1
--- NOTE | 2021-10-27 13:31 | P.PN ---
Subjective Progress Note Date: 10/27/21 Principal diagnosis: Dyspnea On 10/26/2001 patient seen in follow-up on medical surgical floor, she is currently on BiPAP support with pressures of 15 and 5 and FiO2 of 100%, her pulse ox is 99-100%, she is weak, she is resting in bed, but she is awake and alert, she responding appropriately, she states she feels about the same, no worsening dyspnea, she remains on IV Solu-Medrol 60 mg every 6 hours, she is on prophylactic dose Lovenox 40 mg daily, and she was started on Baricitinib review of worsening hypoxia. CT angiogram of the chest showed no evidence of pulmonary embolism, he did not diffuse marked groundglass opacities in the upper lung zones and dense airspace consolidative opacity in the lower zone consistent with diffuse severe inflammatory process. Today's labs have been reviewed, white blood cell count is 16.4, increased compared to yesterday's value, hemoglobin is 12.6, labs d-dimer from yesterday was 2.64, electrolytes and renal profile were unremarkable, CRP is 14.9, trending up, and her last d-dimer from yesterday was improving compared the previous value. Pro-calcitonin level was negative at 0.12. On today's evaluation on 10/27/2021 patient is seen in follow-up on medical surgical floor. On 10/25/2021 night she had a event, and a rapid response team was called to the bedside patient had worsening dyspnea and complaints of pleuritic chest pain. CT angiogram of the chest was completed showing no evidence of pulmonary embolism, and marked acute cardiopulmonary disease. Since that time patient has been maintained on BiPAP with pressures of 15 and 5 and FiO2 of the 100% and FiO2 has gradually been dropped down to 90%. However hernando braxton developed worsening pneumomediastinum, and subcutaneous emphysema which is worsened compared to yesterday's exam, and patient has extensive subcutaneous emphysema involving her face, neck, eyes, upper chest. Patient has difficulty opening her eyes related to worsening subcutaneous emphysema. On today's exam patient remains on BiPAP support with pressures of 15 of 5 and FiO2 of 90%, she is generating excellent tidal volumes in the order of 800 mL, and subsequently IPAP was dropped down to 12, and EPAP remains at 5, she still generating tidal volumes in the order of 600-700 mL. O2 saturations have remained stable, and FiO2 was gradually brought down to 60%, her pulse ox is currently 89-90%. She is breathing comfortably, she wants a break from the BiPAP mask and she will be tried on Airvo so she can take a drink of water and clean her mouth. Objective - Vital Signs Vital signs: Vital Signs Temp 99.9 F H 10/27/21 11:44 Pulse 98 10/27/21 11:44 Resp 28 H 10/27/21 11:44 BP 122/84 10/27/21 11:44 Pulse Ox 95 10/27/21 11:44 Intake & Output 10/26/21 10/27/21 10/27/21 18:59 06:59 18:59 Other: Voiding Method Bedside Commode # Voids 3 1 - Exam GENERAL EXAM: Alert, very pleasant, 51-year-old white female, on BiPAP support, with pressures of 15 and 5, 100%, and patient has developed extensive subcutaneous emphysema involving the neck, upper chest, face and eyes HEAD: Normocephalic/atraumatic. EYES: Normal reaction of pupils, equal size. Conjunctiva pink, sclera white. NOSE: Clear with pink turbinates. THROAT: No erythema or exudates. NECK: No masses, no JVD, no thyroid enlargement, no adenopathy. CHEST: No chest wall deformity. Symmetrical expansion. subcutaneous emphysema involving neck and chest LUNGS: Equal air entry with diffuse crackles, a few wheezes CVS: Regular rate and rhythm, normal S1 and S2, no gallops, no murmurs, no rubs ABDOMEN: Soft, nontender. No hepatosplenomegaly, normal bowel sounds, no guarding or rigidity. EXTREMITIES: No clubbing, no edema, no cyanosis, 2+ pulses and upper and lower extremities. MUSCULOSKELETAL: Muscle strength and tone normal. SPINE: No scoliosis or deformity SKIN: No rashes CENTRAL NERVOUS SYSTEM: Alert and oriented -3. No focal deficits, tone is normal in all 4 extremities. PSYCHIATRIC: Alert and oriented -3. Appropriate affect. Intact judgment and insight. - Labs CBC & Chem 7: 10/27/21 05:14 10/27/21 05:14 Labs: Abnormal Lab Results - Last 24 Hours (Table) 10/27/21 10/27/21 Range/Units 05:14 05:14 WBC 16.79 H (4.50-10.00) X 10*3/uL RDW 15.5 H (11.5-14.5) % Immature Gran # 0.16 H (0.00-0.04) X 10*3/uL Neutrophils # 15.58 H (1.80-7.70) X 10*3/uL Lymphocytes # 0.62 L (0.90-5.00) X 10*3/uL Eosinophils # 0 L (0.04-0.35) X 10*3/uL Sodium 146 H (135-145) mmol/L BUN/Creatinine Ratio 27.71 H (12.00-20.00) Ratio AST 38 H (13-35) U/L ALT 48 H (8-44) U/L Total Protein 5.8 L (6.2-8.2) g/dL Albumin 3.1 L (3.8-4.9) g/dL Albumin/Globulin Ratio 1.13 L (1.60-3.17) g/dL Assessment and Plan Plan: Assessment: #1. Acute COVID-19 related pneumonia, patient has completed Remdesivir, she continues on Decadron, she was started on Baricitinib on 10/25/2021 for worsening hypoxia. Follow-up CTA scan of the chest showed no evidence of any pulmonary embolism. There are diffuse bilateral groundglass pulmonary infiltrates consistent with COVID-19 infection. There is also significant pneumomediastinum #2. Acute hypoxic respiratory failure related to the above, currently patient is on BiPAP support with [place] is a 15 of 5 and FiO2 of 100% #3. Extensive subcutaneous emphysema involving face, eyes, neck and chest area likely related to BiPAP support, and positive pressure ventilation #4. Severe persistent bronchial asthma, managed on outpatient basis with the co mbination of delirium/Qvar in addition to Singulair and Xolair injections #5. History of glioblastoma the brain, involving the right parietal lobe of the brain, resected surgically. Patient has developed left-sided paresis, patient has additional lesions that she supposed to receive radiation therapy for at a later stage. Patient is having issues with nonhealing scalp wound and for that reason the radiation has been delayed. Her wound is currently healed #6. History of melanoma the skin, resected #7. Hyperlipidemia #8. History of kidney stones Plan: We'll obtain a follow-up chest x-ray Patient has developed significant subcutaneous emphysema related to positive pressure ventilation with BiPAP BiPAP pressures have been dropped to 12/5 and FiO2 has been dropped to 60%, patient still generates high tidal volumes in the order of 600-700 mL We'll try the patient on Airvo at 60 L and FiO2 of 90% and gradually wean down FiO2 Discontinue Solu-Medrol, we can switch him back to Decadron 6 mg daily, no need to continue Benadryl, swelling of neck and face not related to angioedema Continue Bariticitinib prophylactic Lovenox, CTA chest from 10/25/2021 showed no evidence of pulmonary embolism We'll continue supportive treatment We will obtain follow-up chest x-ray right now Overall prognosis is guarded I performed a history & physical examination of the patient and discussed their management with my nurse practitioner, Cristina Angeles. I reviewed the nurse practitioner's note and agree with the documented findings and plan of care. Lung sounds are positive for diffuse wheezes throughout the lung hess. The findings and the impression was discussed with the patient. I attest to the documentation by the nurse practitioner. Time with Patient: Less than 30
--- NOTE | 2021-10-27 14:26 | XR ---
EXAMINATION TYPE: XR chest 1V portable DATE OF EXAM: 10/27/2021 CLINICAL HISTORY: Difficulty breathing and COVID progress study. TECHNIQUE: Single AP portable upright view of the chest is obtained. COMPARISON: Chest x-ray and CTA chest from 2 days earlier FINDINGS: New extensive overlying subcutaneous emphysema. Persistent prominent pneumomediastinum. Pe rsistent multifocal and confluent bilateral opacities. Cardiac silhouette size stable and within norm al limits. Osseous structures are intact. IMPRESSION: New extensive overlying subcutaneous emphysema. No new pneumothorax. Persistent pneumomed iastinum and bilateral multifocal and confluent opacities consistent with covid-19 infection redemons trated.
[2021-10-27] MEDS ORDERED: FUROSEMIDE 10 MG/ML 2 ML VIAL IV ONE (18:00)
[2021-10-27] MEDS: ATORVASTATIN 10 MG TAB PO SCH (21:09)
[2021-10-27] MEDS: traZODone HCL 50 MG TAB PO SCH (21:09)
[2021-10-27] MEDS: MONTELUKAST 10 MG TAB PO SCH (21:09)
[2021-10-27] MEDS: SODIUM CHLORIDE 0.9% 1,000 ML IV SCH (21:26)
[2021-10-27] MEDS: TRIAMCINOLONE 0.1% CREAM 80 GM TUBE TOPICAL SCH (21:28)
[2021-10-28] MEDS: ALPRAZolam 0.5 MG TAB PO PRN ×2 (03:45→10:37)
[2021-10-28] MEDS ORDERED: LORazepam 2 MG/ML INJ IV STA (05:05)
[2021-10-28 06:11] LABS: Glucose,Whole Blood 146 mg/dL (75-99)
--- NOTE | 2021-10-28 06:34 | XR ---
EXAMINATION TYPE: XR chest 1V DATE OF EXAM: 10/28/2021 COMPARISON: Yesterday HISTORY: Edema TECHNIQUE: Single view FINDINGS: There is extensive soft tissue air over the chest and neck. There is pulmonary interstitial and airspace edema. Heart size is normal. No pneumothorax. Trachea is midline. IMPRESSION: Extensive soft tissue air without change. Pulmonary edema without change.
[2021-10-28] MEDS ORDERED: MORPHINE SULFATE 4 MG/ML SYRINGE IVP STA ×2 (06:36→14:01)
[2021-10-28 06:49] LABS: Basophils # (A) 0.1 k/uL (0-0.2); Basophils % (A) 0 %; Eosinophils # (A) 0.2 k/uL (0-0.7); Eosinophils % (A) 1 %; HCT 44.1 % (34.0-46.0); HGB 14.5 gm/dL (11.4-16.0); Lymphocytes # (A) 0.5 k/uL (1.0-4.8); Lymphocytes % (A) 3 %; MCH 31.5 pg (25.0-35.0); MCHC 32.9 g/dL (31.0-37.0); MCV 95.6 fL (80.0-100.0); Mean Platelet Volume 7.9; Monocytes # (A) 0.3 k/uL (0-1.0); Monocytes % (A) 1 %; Neutrophils # (A) 19.1 k/uL (1.3-7.7); Neutrophils % (A) 94 %; Platelet Count 427 k/uL (150-450); RBC 4.62 m/uL (3.80-5.40); RDW 14.6 % (11.5-15.5); WBC 20.2 k/uL (3.8-10.6)
[2021-10-28 07:05] LABS: ALT 47 U/L (4-34); AST 37 U/L (14-36); African American GFR (CKD) >90 (>60 ml/min/1.73 sqM); Albumin 3.2 g/dL (3.5-5.0); Albumin/Globulin Ratio 0.9; Alkaline Phosphatase 105 U/L (38-126); Anion Gap 8 mmol/L; Blood Urea Nitrogen 32 mg/dL (7-17); Calcium 9.3 mg/dL (8.4-10.2); Carbon Dioxide 26 mmol/L (22-30); Chloride 110 mmol/L (98-107); Globulin 3.5 g/dL; Glucose 159 mg/dL (74-99); Non-African American GFR(CKD) 83 (>60 ml/min/1.73 sqM); Potassium 3.6 mmol/L (3.5-5.1); Sodium 144 mmol/L (137-145); Total Bilirubin 0.7 mg/dL (0.2-1.3); Total Protein 6.7 g/dL (6.3-8.2)
[2021-10-28] MEDS: FLUTICASONE 110 MCG INHALER INHALATION SCH ×2 (08:37→21:43)
[2021-10-28] MEDS: ALBUTEROL HFA INHALER INHALATION PRN ×4 (08:37→21:43)
[2021-10-28] MEDS: SYMBICORT 160-4.5 MCG INHALER INHALATION SCH ×2 (08:37→21:43)
[2021-10-28] MEDS: DEXAMETHASONE SOD PHOSPHATE 10 MG/ML 1 ML VIAL IVP SCH (10:11)
[2021-10-28] MEDS: FAMOTIDINE 20 MG/2 ML VIAL IV SCH ×2 (10:11→21:27)
[2021-10-28] MEDS: ASCORBIC ACID 500 MG TAB PO SCH (10:16)
[2021-10-28] MEDS: CHOLECALCIFEROL 25 MCG (1000 IU) TABLET PO SCH (10:16)
[2021-10-28] MEDS: BARICITINIB 2 MG TABLET PO SCH (10:16)
[2021-10-28] MEDS: BACLOFEN 10 MG TAB PO SCH ×4 (10:16→21:31)
[2021-10-28] MEDS: PANTOPRAZOLE 40 MG TABLET PO SCH (10:16)
[2021-10-28] MEDS: levETIRAcetam 500 MG TAB PO SCH ×2 (10:17→21:30)
[2021-10-28] MEDS: ZINC SULFATE 220 MG CAP PO SCH (10:17)
[2021-10-28] MEDS: METOPROLOL TARTRATE 12.5 MG TAB PO SCH ×2 (10:37→21:30)
--- NOTE | 2021-10-28 13:35 | P.PN ---
Subjective Progress Note Date: 10/28/21 Principal diagnosis: Dyspnea On 10/26/2001 patient seen in follow-up on medical surgical floor, she is currently on BiPAP support with pressures of 15 and 5 and FiO2 of 100%, her pulse ox is 99-100%, she is weak, she is resting in bed, but she is awake and alert, she responding appropriately, she states she feels about the same, no worsening dyspnea, she remains on IV Solu-Medrol 60 mg every 6 hours, she is on prophylactic dose Lovenox 40 mg daily, and she was started on Baricitinib review of worsening hypoxia. CT angiogram of the chest showed no evidence of pulmonary embolism, he did not diffuse marked groundglass opacities in the upper lung zones and dense airspace consolidative opacity in the lower zone consistent with diffuse severe inflammatory process. Today's labs have been reviewed, white blood cell count is 16.4, increased compared to yesterday's value, hemoglobin is 12.6, labs d-dimer from yesterday was 2.64, electrolytes and renal profile were unremarkable, CRP is 14.9, trending up, and her last d-dimer from yesterday was improving compared the previous value. Pro-calcitonin level was negative at 0.12. On today's evaluation on 10/27/2021 patient is seen in follow-up on medical surgical floor. On 10/25/2021 night she had a event, and a rapid response team was called to the bedside patient had worsening dyspnea and complaints of pleuritic chest pain. CT angiogram of the chest was completed showing no evidence of pulmonary embolism, and marked acute cardiopulmonary disease. Since that time patient has been maintained on BiPAP with pressures of 15 and 5 and FiO2 of the 100% and FiO2 has gradually been dropped down to 90%. However hernando braxton developed worsening pneumomediastinum, and subcutaneous emphysema which is worsened compared to yesterday's exam, and patient has extensive subcutaneous emphysema involving her face, neck, eyes, upper chest. Patient has difficulty opening her eyes related to worsening subcutaneous emphysema. On today's exam patient remains on BiPAP support with pressures of 15 of 5 and FiO2 of 90%, she is generating excellent tidal volumes in the order of 800 mL, and subsequently IPAP was dropped down to 12, and EPAP remains at 5, she still generating tidal volumes in the order of 600-700 mL. O2 saturations have remained stable, and FiO2 was gradually brought down to 60%, her pulse ox is currently 89-90%. She is breathing comfortably, she wants a break from the BiPAP mask and she will be tried on Airvo so she can take a drink of water and clean her mouth. On 10/28/2021 patient seen in follow-up on medical surgical floor, her subcutaneous emphysema continues to progress, and has extended to her right arm, bilateral shoulders, chest, neck, face. Her breathing continues to be labored, she was placed back on BiPAP support with pressures of 12 and 6 and FiO2 100%, her pulse ox is 93%, today's follow-up chest x-ray shows extensive soft tissue air without change, no pneumothorax, trachea is midline, there is pulmonary interstitial and airspace edema. Patient is tachypneic, labored breathing. She has been maximized as far as COVID treatment, she remains on Baritinib, Decadron 6 mg daily, prophylactic Lovenox. We gave her a dose of IV Lasix yesterday. The fluid balance is difficult to estimate. Today's labs have been reviewed, white blood cell count is 20.2, increased from the day before, hemoglobin is 14.5, sodium is 144, potassium 3.6, chloride is 110, BUN is 32, creatinine 0.82, pro-calcitonin level came back negative at 0.10. Her inflammatory markers are still pending but they were increasing in yesterday's labs. Objective - Vital Signs Vital signs: Vital Signs Temp 98.2 F 10/28/21 05:57 Pulse 127 H 10/28/21 10:38 Resp 16 10/28/21 10:38 BP 113/78 10/28/21 10:38 Pulse Ox 93 L 10/28/21 10:38 Intake & Output 10/27/21 10/28/21 10/28/21 18:59 06:59 18:59 Intake Total 600 400 Balance 600 400 Weight 79.379 kg Intake: Oral 600 400 Other: Voiding Method Bedside Commode # Voids 3 2 - Exam GENERAL EXAM: Alert, very pleasant, 51-year-old white female, on BiPAP support, with pressures of 12 and 5, 100%, and patient has developed extensive subcutaneous emphysema involving the neck, upper chest, shoulders, and arms face and eyes HEAD: Normocephalic/atraumatic. EYES: Normal reaction of pupils, equal size. Conjunctiva pink, sclera white. NOSE: Clear with pink turbinates. THROAT: No erythema or exudates. NECK: No masses, no JVD, no thyroid enlargement, no adenopathy. CHEST: No chest wall deformity. Symmetrical expansion. subcutaneous emphysema involving neck and chest LUNGS: Equal air entry with diffuse crackles, a few wheezes CVS: Regular rate and rhythm, normal S1 and S2, no gallops, no murmurs, no rubs ABDOMEN: Soft, nontender. No hepatosplenomegaly, normal bowel sounds, no guarding or rigidity. EXTREMITIES: No clubbing, no edema, no cyanosis, 2+ pulses and upper and lower extremities. MUSCULOSKELETAL: Muscle strength and tone normal. SPINE: No scoliosis or deformity SKIN: No rashes CENTRAL NERVOUS SYSTEM: Alert and oriented -3. No focal deficits, tone is normal in all 4 extremities. PSYCHIATRIC: Alert and oriented -3. Appropriate affect. Intact judgment and insight. - Labs CBC & Chem 7: 10/28/21 06:32 10/28/21 06:32 Labs: Abnormal Lab Results - Last 24 Hours (Table) 10/26/21 10/27/21 10/28/21 Range/Units 06:59 05:14 06:09 WBC (3.8-10.6) k/uL Neutrophils # (1.3-7.7) k/uL Lymphocytes # (1.0-4.8) k/uL Chloride (98-107) mmol/L BUN (7-17) mg/dL Glucose (74-99) mg/dL POC Glucose (mg/dL) 146 H (75-99) mg/dL AST (14-36) U/L ALT (4-34) U/L Lactate Dehydrogenase 1047 H (120-246) U/L Albumin (3.5-5.0) g/dL Procalcitonin 0.12 H (0.02-0.09) ng/mL 10/28/21 10/28/21 10/28/21 Range/Units 06:32 06:32 06:32 WBC 20.2 H (3.8-10.6) k/uL Neutrophils # 19.1 H (1.3-7.7) k/uL Lymphocytes # 0.5 L (1.0-4.8) k/uL Chloride 110 H (98-107) mmol/L BUN 32 H (7-17) mg/dL Glucose 159 H (74-99) mg/dL POC Glucose (mg/dL) (75-99) mg/dL AST 37 H (14-36) U/L ALT 47 H (4-34) U/L Lactate Dehydrogenase (120-246) U/L Albumin 3.2 L (3.5-5.0) g/dL Procalcitonin 0.10 H (0.02-0.09) ng/mL Assessment and Plan Plan: Assessment: #1. Acute COVID-19 related pneumonia, patient has completed Remdesivir, she continues on Decadron, she was started on Baricitinib on 10/25/2021 for worsening hypoxia. Follow-up CTA scan of the chest showed no evidence of any pulmonary embolism. There are diffuse bilateral groundglass pulmonary infiltrates consistent with COVID-19 infection. There is also significant pneu momediastinum #2. Acute hypoxic respiratory failure related to the above, currently patient is on BiPAP support with 12 of 6 and FiO2 of 100% #3. Extensive subcutaneous emphysema involving face, eyes, neck and chest area related to pneumomediastinum possibly related to COVID 19 #4. Severe persistent bronchial asthma, managed on outpatient basis with the combination of Dulera/Qvar in addition to Singulair and Xolair injections #5. History of glioblastoma the brain, involving the right parietal lobe of the brain, resected surgically. Patient has developed left-sided paresis, patient has additional lesions that she supposed to receive radiation therapy for at a later stage. Patient is having issues with nonhealing scalp wound and for that reason the radiation has been delayed. Her wound is currently healed #6. History of melanoma the skin, resected #7. Hyperlipidemia #8. History of kidney stones Plan: Continue BiPAP support May provide Airvo at 60 L and 90% at short term intervals alternating with BiPAP Today's chest x-ray has been reviewed showing extensive subcutaneous emphysema, no evidence of pneumothorax, and pulmonary interstitial and airspace edema Patient was given a single dose of IV Lasix She is becoming a bit prerenal, has not been able to take in much by mouth We will hold on further diuresis Continue Bariticitinib prophylactic Lovenox, Patient has been maximized in terms of COVID treatment Has not shown improvement She is quite dyspneic, uncomfortable, Would advise discussing possible hospice and palliative care with the patient and her Continue supportive treatment until then Overall prognosis is poor I performed a history & physical examination of the patient and discussed their management with my nurse practitioner, Cristina Angeles. I reviewed the nurse practitioner's note and agree with the documented findings and plan of care. Lung sounds are positive for diffuse wheezes throughout the lung hess. The findings and the impression was discussed with the patient. I attest to the documentation by the nurse practitioner. Time with Patient: Less than 30
[2021-10-28] MEDS: SODIUM CHLORIDE 0.9% 1,000 ML IV SCH ×2 (17:31→21:33)
[2021-10-28] MEDS: TRIAMCINOLONE 0.1% CREAM 80 GM TUBE TOPICAL SCH ×2 (17:32→21:31)
[2021-10-28] MEDS ORDERED: MORPHINE SULFATE 4 MG/ML SYRINGE IVP PRN (17:34)
[2021-10-28] MEDS: ATORVASTATIN 10 MG TAB PO SCH (21:30)
[2021-10-28] MEDS: MONTELUKAST 10 MG TAB PO SCH (21:31)
[2021-10-28] MEDS: traZODone HCL 50 MG TAB PO SCH (21:31)
[2021-10-28] MEDS: LORazepam 2 MG/ML INJ IV PRN (23:50)
[2021-10-29] MEDS: MORPHINE SULFATE 4 MG/ML SYRINGE IVP PRN ×3 (01:07→11:57)
--- NOTE | 2021-10-29 04:30 | XR ---
EXAMINATION TYPE: XR chest 1V portable DATE OF EXAM: 10/29/2021 COMPARISON: 10/28/2021 HISTORY: Short of breath TECHNIQUE: Single view FINDINGS: There is extensive subcutaneous air over the entire chest and neck. There is pulmonary inte rstitial and airspace edema. Heart size is normal. Lungs are difficult to evaluate because of the sof t tissue air. IMPRESSION: Pulmonary edema unchanged. Soft tissue air unchanged.
--- NOTE | 2021-10-29 05:26 | P.EN ---
A team note multiple A teams were called on this patient due to worsening overall clinical condition and difficulty breathing patient with brain mets, presented with covid pneumonia and acute hypoxic respiratory failure , now complicated with subcutaneous emphysema for past couple days has been progressive. , after discussing with pulmonary patient reinitiated on BIPAP due to worsening hypoxemia despite high flow oxygen , patient initially improved with BIPAP , however, after about 6-7 hours she is having worsening hypoxemia CXR ordered, its showing possible tension pneumothorax, I asked RN to page pulmonary to evaluate CXR for further recommendations and consideration of thoracostomy tube insertion. patient has poor prognosis , I recommend having family meeting to discuss goals of therapy and possibly consider comfort measures, due to multiple comorbidities and brain mets. acute hypoxic respiratory failure secondary to COVID pneumonitis complicated with pneumomediastinum and subcutaneous emphysema patient is DNR
[2021-10-29 05:30] VITALS: RESP 24
[2021-10-29] MEDS: LORazepam 2 MG/ML INJ IV PRN ×2 (09:21→15:32)
[2021-10-29] MEDS ORDERED: FUROSEMIDE 10 MG/ML 2 ML VIAL IV STA (09:25)
[2021-10-29 09:35] LABS: African American GFR (CKD) 98.2 (60.0-200.0); Albumin 3.3 g/dL (3.8-4.9); Albumin/Globulin Ratio 1.03 (1.60-3.17); Anion Gap 15.2 mmol/L (10.00-18.00); BUN/Creat Ratio 34.75 Ratio (12.00-20.00); Blood Urea Nitrogen 27.8 mg/dL (9.0-27.0); Calcium 8.9 mg/dL (8.7-10.3); Carbon Dioxide 22.8 mmol/L (20.0-27.5); Globulin 3.2 g/dL (1.6-3.3); Non-African American GFR(CKD) 84.8 (60.0-200.0); Potassium 4.4 mmol/L (3.5-5.5); Total Bilirubin 0.3 mg/dL (0.30-1.20); Total Protein 6.5 g/dL (6.2-8.2)
[2021-10-29] MEDS: FAMOTIDINE 20 MG/2 ML VIAL IV SCH (09:43)
[2021-10-29] MEDS: DEXAMETHASONE SOD PHOSPHATE 10 MG/ML 1 ML VIAL IVP SCH (09:43)
[2021-10-29] MEDS: ENOXAPARIN 40 MG/0.4 ML SYRINGE SQ SCH (09:44)
[2021-10-29] MEDS: ASCORBIC ACID 500 MG TAB PO SCH (09:50)
[2021-10-29] MEDS: SODIUM CHLORIDE 0.9% 1,000 ML IV SCH (09:50)
[2021-10-29] MEDS: PANTOPRAZOLE 40 MG TABLET PO SCH (09:50)
[2021-10-29] MEDS: levETIRAcetam 500 MG TAB PO SCH (09:51)
[2021-10-29] MEDS: BARICITINIB 2 MG TABLET PO SCH (09:51)
[2021-10-29] MEDS: BACLOFEN 10 MG TAB PO SCH ×2 (09:51→12:24)
[2021-10-29] MEDS: CHOLECALCIFEROL 25 MCG (1000 IU) TABLET PO SCH (09:51)
[2021-10-29] MEDS: TRIAMCINOLONE 0.1% CREAM 80 GM TUBE TOPICAL SCH (09:51)
[2021-10-29] MEDS: ZINC SULFATE 220 MG CAP PO SCH (09:51)
[2021-10-29] MEDS: METOPROLOL TARTRATE 12.5 MG TAB PO SCH (09:51)
[2021-10-29] MEDS: ALBUTEROL HFA INHALER INHALATION PRN (09:53)
[2021-10-29] MEDS: FLUTICASONE 110 MCG INHALER INHALATION SCH (09:53)
[2021-10-29] MEDS: SYMBICORT 160-4.5 MCG INHALER INHALATION SCH (09:53)
--- NOTE | 2021-10-29 10:40 | P.PN ---
Subjective Progress Note Date: 10/27/21 Principal diagnosis: Acute hypoxic failure secondary to COVID-19 pneumonia Patient is a 51-year-old female with a known history of brain tumor/glioblastoma with the recent surgery, asthma, GERD and history of esophageal dysmotility, hyperlipidemia and other medical problems presents ER with complaints of shortness of breath. Patient has been having shortness of breath worsening for the past 10-12 days. Patient had recent brain surgery. EMS was called due to worsening symptoms and found to be hypoxic with pulse ox 78%. Patient was brought to the hospital for evaluation. Otherwise patient denied any fever or chills. No nausea vomiting or abdominal pain or diarrhea. No loss of taste or smell sensation 15 L any sick contacts. Patient was tested positive for COVID-1 9 infection. Patient was placed on nasal cannula oxygen at 6 L. Chest x-ray showed mild bibasilar infiltrates. Atelectasis and pneumonia as well as atypical pneumonia could be considered. Next and laboratory data showed the recent 9.3 hemoglobin 10.6 and platelets 249 Sodium 138 potassium 4.1 chloride 103 BUN 17 and creatinine 0.82 AST 49 ALT 50, LDH 575 ferritin 559 d-dimer 0.67 and CRP 6.6 Progress toward level is 0.12 COVID-19 PCR detected still complaining of shortness of breath requiring 12-21 Patient is currently in selective unit. Requiring oxygen at 15 L by nasal cannula and nonrebreather. No complaints of fever or chills. No compressive chest pain. No nausea vomiting or abdominal pain or diarrhea. Patient is awake alert and oriented 3. Laboratory data showed WBC 8.8 hemoglobin 12.9 and platelets 2:15 lymphocytes 0.8 BUN 17 and creatinine 0.76, AST 37 ALT 37 alk phos 76 and progressed and was 0.12. Patient is being continued on dexamethasone, Lovenox and Remdesivir. Nares on board. Continued on DuoNeb's and Flovent. 10/23/2021 Patient is still on 15 L oxygen via nasal cannula. CT angiogram showed no evidence of PE. Diffuse bilateral groundglass pulmonary infiltrates consistent with COVID-19 19 pneumonia. Patient is being treated on dexamethasone, Lovenox and also onday #3 of Remdesivir. No complex of chest pain. Denied any worsening shortness of breath. Still having exertional dyspnea. Patient denied any nausea vomiting or abdominal pain or diarrhea. Laboratory data reviewed. 10/24/2021 Patient is currently lying in bed. Awake alert and oriented x3. Feels anxious. No complaints of chest pain. Breathing status is better. Still requiring o xygen at 15 L via nasal cannula and also nonrebreather. Patient is saturating at around 85%. Was transitioned to high flow oxygen Airvo 40 L. T-max is 99.2. Laboratory data showed WBC 13.6 hemoglobin 13.7 platelets 335 lymphocytes 0.8 sodium 136 potassium 3.1 which was replaced. Blood sugar is 72 LDH 216 CRP 5.0 Pulmonary is following.Patient is being current dexamethasone Lovenox and remdesivir course. 10/25/2021 Patient is currently lying in the bed. Awake alert and oriented. Patient did have an episode of substernal pleuritic chest pain this morning. CTA was ordered. D-dimer level is 2.64 CTA showed no evidence of pulmonary embolism. Marked acute cardiopulmonary disease. Otherwise patient has been afebrile and still requiring oxygen at 15 L via nonrebreather. Currently being current on dexamethasone Lovenox and remdesivir. Patient was initiated on baricitinib as per pulmonary. 10/26/2021 Patient is currently in the medical floor. On BiPAP 15 x 5 with FiO2 100%. Patient is very anxious and feeling weak. Patient is being current on IV sorbitol every 6 hourly and Lovenox subcu. Patient was started on., Baricitinib. Due to worsening shortness of breath and hypoxia CT angiogram was done showed no evidence of PE. Marked acute pulmonary disease. Extra laboratory data showed WBC 16.4 hemoglobin 12.6 and platelets 363 Sodium 141 potassium 3.8 chloride 106 BUN 12.2 and creatinine 0.7 and CRP went up to 14.9. 10/27/2021 Patient is currently in the medical floor. Overnight rapid response team was called due to worsening dyspnea and pleuritic chest pain. CT angiogram of the chest showed no evidence of PE. Marked acute pulmonary pulmonary disease. Patient was placed on BiPAP. 15 x 5 and 100% FiO2. Patient developed worsening pneumomediastinum and subcutaneous emphysema which is worsened compared to yesterday. Laboratory data showed WBC 16.7 hemoglobin 12.7 platelets 395 Sodium 146 potassium 3.9, chloride 108, BUN 20.7 with creatinine 0.7 a 7038 ALT 48 alk phos 93 level is 0.12 pulmonary is on board. Current medications reviewed. Objective - Vital Signs Vital signs: Vital Signs Temp 98.6 F 10/27/21 05:53 Pulse 96 10/27/21 07:55 Resp 27 H 10/27/21 07:55 BP 129/92 10/27/21 05:53 Pulse Ox 93 L 10/27/21 05:53 Intake & Output 10/26/21 10/27/21 10/27/21 18:59 06:59 18:59 Other: Voiding Method Bedside Commode # Voids 3 1 - Exam PHYSICAL EXAMINATION: Patient is lying in the bed comfortably. Patient is lethargic, anxious, as stated.. On BiPAP.... HEENT: Normocephalic. Neck is supple. Pupils reactive. Nostrils clear. Oral cavity is moist. Neck reveals no JVD, carotid bruits, or thyromegaly. CHEST EXAMINATION: Trachea is central. Symmetrical expansion. Bilateral diminished air entry. Patient is using accessory muscles and appears to be in mild distress. CARDIAC: Normal S1, S2 with no gallops. No murmurs ABDOMEN: Soft. Bowel sounds normal. No organomegaly. No abdominal bruits. Extremities: reveal no edema. No clubbing or cyanosis Neurologically patient is lethargic and drowsy, could not communicate.. No gross focal deficits noted Skin: No rash or skin lesions. Psychiatric: Not basis at this time. Musculoskeletal: No joint swelling or deformity. - Labs CBC & Chem 7: 10/28/21 06:32 10/29/21 04:13 Labs: Abnormal Lab Results - Last 24 Hours (Table) 10/27/21 Range/Units 05:14 WBC 16.79 H (4.50-10.00) X 10*3/uL RDW 15.5 H (11.5-14.5) % Immature Gran # 0.16 H (0.00-0.04) X 10*3/uL Neutrophils # 15.58 H (1.80-7.70) X 10*3/uL Lymphocytes # 0.62 L (0.90-5.00) X 10*3/uL Eosinophils # 0 L (0.04-0.35) X 10*3/uL Assessment and Plan Assessment: Acute hypoxic respiratory failure secondary to COVID-19 pneumonia. Requiring BiPAP Acute COVID-19 pneumonia. Subcutaneous emphysema involving anterior chest and left upper extremity. Severe persistent asthma on outpatient follow up with pulmonary and currently on Qvar, Singulair and insulin injections. History of right sided glioblastoma of the brain status post recent surgery about a month ago. Does have left-sided addresses secondary to that. History of melanoma the skin resected Hyperlipidemia History of renal stones GERD History of esophageal dysmotility Anxiety. CODE STATUS is DO NOT RESUSCITATE/DO NOT INTUBATE DVT prophylaxis. Plan: Patient will be continued IV Solu-Medrol 60 mg every 6 hourly. Changed to dexamethasone 6 mg IV daily., Lovenox subcu and multivitamins. Patient was started on remdesivir course. Change to baricitinib as per pulmonary recommendations due to worsening respiratory status.. Continued with oxygen supplementation to keep the saturation above 92%. Currently on BiPAP. Patient is lethargic and as stated. Continue the home medications and follow closely. Follow up intermittently markings. Pulmonary is following. Prognosis is poor at this time. Time with Patient: Greater than 30
--- NOTE | 2021-10-29 10:44 | P.PN ---
Subjective Progress Note Date: 10/28/21 Principal diagnosis: Acute hypoxic failure secondary to COVID-19 pneumonia Patient is a 51-year-old female with a known history of brain tumor/glioblastoma with the recent surgery, asthma, GERD and history of esophageal dysmotility, hyperlipidemia and other medical problems presents ER with complaints of shortness of breath. Patient has been having shortness of breath worsening for the past 10-12 days. Patient had recent brain surgery. EMS was called due to worsening symptoms and found to be hypoxic with pulse ox 78%. Patient was brought to the hospital for evaluation. Otherwise patient denied any fever or chills. No nausea vomiting or abdominal pain or diarrhea. No loss of taste or smell sensation 15 L any sick contacts. Patient was tested positive for COVID-1 9 infection. Patient was placed on nasal cannula oxygen at 6 L. Chest x-ray showed mild bibasilar infiltrates. Atelectasis and pneumonia as well as atypical pneumonia could be considered. Next and laboratory data showed the recent 9.3 hemoglobin 10.6 and platelets 249 Sodium 138 potassium 4.1 chloride 103 BUN 17 and creatinine 0.82 AST 49 ALT 50, LDH 575 ferritin 559 d-dimer 0.67 and CRP 6.6 Progress toward level is 0.12 COVID-19 PCR detected still complaining of shortness of breath requiring 12-21 Patient is currently in selective unit. Requiring oxygen at 15 L by nasal cannula and nonrebreather. No complaints of fever or chills. No compressive chest pain. No nausea vomiting or abdominal pain or diarrhea. Patient is awake alert and oriented 3. Laboratory data showed WBC 8.8 hemoglobin 12.9 and platelets 2:15 lymphocytes 0.8 BUN 17 and creatinine 0.76, AST 37 ALT 37 alk phos 76 and progressed and was 0.12. Patient is being continued on dexamethasone, Lovenox and Remdesivir. Nares on board. Continued on DuoNeb's and Flovent. 10/23/2021 Patient is still on 15 L oxygen via nasal cannula. CT angiogram showed no evidence of PE. Diffuse bilateral groundglass pulmonary infiltrates consistent with COVID-19 19 pneumonia. Patient is being treated on dexamethasone, Lovenox and also onday #3 of Remdesivir. No complex of chest pain. Denied any worsening shortness of breath. Still having exertional dyspnea. Patient denied any nausea vomiting or abdominal pain or diarrhea. Laboratory data reviewed. 10/24/2021 Patient is currently lying in bed. Awake alert and oriented x3. Feels anxious. No complaints of chest pain. Breathing status is better. Still requiring o xygen at 15 L via nasal cannula and also nonrebreather. Patient is saturating at around 85%. Was transitioned to high flow oxygen Airvo 40 L. T-max is 99.2. Laboratory data showed WBC 13.6 hemoglobin 13.7 platelets 335 lymphocytes 0.8 sodium 136 potassium 3.1 which was replaced. Blood sugar is 72 LDH 216 CRP 5.0 Pulmonary is following.Patient is being current dexamethasone Lovenox and remdesivir course. 10/25/2021 Patient is currently lying in the bed. Awake alert and oriented. Patient did have an episode of substernal pleuritic chest pain this morning. CTA was ordered. D-dimer level is 2.64 CTA showed no evidence of pulmonary embolism. Marked acute cardiopulmonary disease. Otherwise patient has been afebrile and still requiring oxygen at 15 L via nonrebreather. Currently being current on dexamethasone Lovenox and remdesivir. Patient was initiated on baricitinib as per pulmonary. 10/26/2021 Patient is currently in the medical floor. On BiPAP 15 x 5 with FiO2 100%. Patient is very anxious and feeling weak. Patient is being current on IV sorbitol every 6 hourly and Lovenox subcu. Patient was started on., Baricitinib. Due to worsening shortness of breath and hypoxia CT angiogram was done showed no evidence of PE. Marked acute pulmonary disease. Extra laboratory data showed WBC 16.4 hemoglobin 12.6 and platelets 363 Sodium 141 potassium 3.8 chloride 106 BUN 12.2 and creatinine 0.7 and CRP went up to 14.9. 10/27/2021 Patient is currently in the medical floor. Overnight rapid response team was called due to worsening dyspnea and pleuritic chest pain. CT angiogram of the chest showed no evidence of PE. Marked acute pulmonary pulmonary disease. Patient was placed on BiPAP. 15 x 5 and 100% FiO2. Patient developed worsening pneumomediastinum and subcutaneous emphysema which is worsened compared to yesterday. Laboratory data showed WBC 16.7 hemoglobin 12.7 platelets 395 Sodium 146 potassium 3.9, chloride 108, BUN 20.7 with creatinine 0.7 a 7038 ALT 48 alk phos 93 level is 0.12 pulmonary is on board. 10/28/2021 Patient is in the medical floor. Currently on BiPAP. Patient is agitated, anxious and we talked use. Saturations around 85% on BiPAP with 100% FiO2. Patient is tachycardic and tachypneic and using accessory muscles. Chest x-ray showed extensive soft tissue rate without change. No pneumothorax. Trachea is midline. There is pulmonary interstitial edema. Patient was given a dose of IV Lasix yesterday. Laboratory data showed sodium 144 potassium 3.6 chloride 110, BUN 32 and creatinine 0.8 to AST 37 ALT 47 alk phos 105, pro-Level Is 0.10 Patient Is Being continued on dexamethasone, Lovenox subcu and Baricitanib. Pulmonary is following. Current medications reviewed. Objective - Vital Signs Vital signs: Vital Signs Temp 98.2 F 10/28/21 05:57 Pulse 110 H 10/28/21 18:45 Resp 16 10/28/21 18:45 BP 92/64 10/28/21 18:45 Pulse Ox 91 L 10/28/21 18:45 Intake & Output 10/28/21 10/28/21 10/29/21 06:59 18:59 06:59 Intake Total 400 290 Balance 400 290 Intake: Intake, IV Titration 270 Amount Sodium Chloride 0.9% 1, 120 000 ml @ 20 mls/hr IV . Q24H [facility] Rx#:[id number] Sodium Chloride 0.9% 1, 150 000 ml @ 75 mls/hr IV . [id number] [id number] Rx#:[id number] Oral 400 20 Other: Voiding Method Bedside Commode # Voids 2 - Exam PHYSICAL EXAMINATION: Patient is lying in the bed comfortably. Patient is lethargic, anxious, as stated.. On BiPAP.... HEENT: Normocephalic. Neck is supple. Pupils reactive. Nostrils clear. Oral cavity is moist. Neck reveals no JVD, carotid bruits, or thyromegaly. CHEST EXAMINATION: Trachea is central. Symmetrical expansion. Bilateral diminished air entry. Patient is using accessory muscles and appears to be in mild distress. CARDIAC: Normal S1, S2 with no gallops. No murmurs ABDOMEN: Soft. Bowel sounds normal. No organomegaly. No abdominal bruits. Extremities: reveal no edema. No clubbing or cyanosis Neurologically patient is lethargic and drowsy, could not communicate.. No nicolle ss focal deficits noted Skin: No rash or skin lesions. Psychiatric: Not basis at this time. Musculoskeletal: No joint swelling or deformity. - Labs CBC & Chem 7: 10/28/21 06:32 10/29/21 04:13 Labs: Abnormal Lab Results - Last 24 Hours (Table) 10/26/21 10/27/21 10/28/21 Range/Units 06:59 05:14 06:09 WBC (3.8-10.6) k/uL Neutrophils # (1.3-7.7) k/uL Lymphocytes # (1.0-4.8) k/uL Chloride (98-107) mmol/L BUN (7-17) mg/dL Glucose (74-99) mg/dL POC Glucose (mg/dL) 146 H (75-99) mg/dL AST (14-36) U/L ALT (4-34) U/L Lactate Dehydrogenase 1047 H (120-246) U/L Albumin (3.5-5.0) g/dL Procalcitonin 0.12 H (0.02-0.09) ng/mL 10/28/21 10/28/21 10/28/21 Range/Units 06:32 06:32 06:32 WBC 20.2 H (3.8-10.6) k/uL Neutrophils # 19.1 H (1.3-7.7) k/uL Lymphocytes # 0.5 L (1.0-4.8) k/uL Chloride 110 H (98-107) mmol/L BUN 32 H (7-17) mg/dL Glucose 159 H (74-99) mg/dL POC Glucose (mg/dL) (75-99) mg/dL AST 37 H (14-36) U/L ALT 47 H (4-34) U/L Lactate Dehydrogenase (120-246) U/L Albumin 3.2 L (3.5-5.0) g/dL Procalcitonin 0.10 H (0.02-0.09) ng/mL Assessment and Plan Assessment: Acute hypoxic respiratory failure secondary to COVID-19 pneumonia. Requiring BiPAP Acute COVID-19 pneumonia. Subcutaneous emphysema involving anterior chest and left upper extremity. Severe persistent asthma on outpatient follow up with pulmonary and currently on Qvar, Singulair and insulin injections. History of right sided glioblastoma of the brain status post recent surgery about a month ago. Does have left-sided addresses secondary to that. History of melanoma the skin resected Hyperlipidemia History of renal stones GERD History of esophageal dysmotility Anxiety. CODE STATUS is DO NOT RESUSCITATE/DO NOT INTUBATE DVT prophylaxis. Plan: Patient will be continued IV Solu-Medrol 60 mg every 6 hourly. Changed to dexamethasone 6 L IV daily., Lovenox subcu and multivitamins. Patient was started on remdesivir course. Change to baricitinib as per pulmonary recommendations due to worsening respiratory status.. Continued with oxygen supplementation to keep the saturation above 92%. Currently on BiPAP. Patient is lethargic and as stated. Continue the home medications and follow closely. Follow up intermittently parth fernandez. Pulmonary is following. Prognosis is poor at this time. Will discuss with her and her family. Time with Patient: Greater than 30
[2021-10-29] MEDS ORDERED: DEXTROSE 5%-0.45% NACL 1,000 ML IV SCH (10:45)
[2021-10-29] MEDS ORDERED: ACETAMINOPHEN IV (For NPO) 1,000 MG in EMPTY BAG 1 BAG IVPB SCH (12:00)
[2021-10-29 12:15] LABS: Basophils # (A) 0.04 X 10*3/uL (0.00-0.10); Basophils % (A) 0.2 %; Eosinophils # (A) 0.02 X 10*3/uL (0.04-0.35); Eosinophils % (A) 0.1 %; HCT 44.8 % (37.2-46.3); HGB 13.7 g/dL (12.0-15.0); Lymphocytes # (A) 0.75 X 10*3/uL (0.90-5.00); Lymphocytes % (A) 3.4 %; MCHC 30.6 g/dL (32.0-37.0); MCV 101.4 fL (80.0-97.0); Mean Platelet Volume 10.8 fL (9.5-12.2); Monocytes # (A) 0.29 X 10*3/uL (0.20-1.00); Monocytes % (A) 1.3 %; Neutrophils # (A) 20.56 X 10*3/uL (1.80-7.70); Neutrophils % (A) 94.3 %; Platelet Count 366 X 10*3/uL (140-440); RBC 4.42 X 10*6/uL (4.10-5.20); RDW 16.2 % (11.5-14.5); WBC 21.82 X 10*3/uL (4.50-10.00)
[2021-10-29 12:24] VITALS: BP 114/83; PULSE 162; TEMP 102.7
--- NOTE | 2021-10-29 12:32 | P.PN ---
Subjective Progress Note Date: 10/29/21 Principal diagnosis: Dyspnea On 10/26/2001 patient seen in follow-up on medical surgical floor, she is currently on BiPAP support with pressures of 15 and 5 and FiO2 of 100%, her pulse ox is 99-100%, she is weak, she is resting in bed, but she is awake and alert, she responding appropriately, she states she feels about the same, no worsening dyspnea, she remains on IV Solu-Medrol 60 mg every 6 hours, she is on prophylactic dose Lovenox 40 mg daily, and she was started on Baricitinib review of worsening hypoxia. CT angiogram of the chest showed no evidence of pulmonary embolism, he did not diffuse marked groundglass opacities in the upper lung zones and dense airspace consolidative opacity in the lower zone consistent with diffuse severe inflammatory process. Today's labs have been reviewed, white blood cell count is 16.4, increased compared to yesterday's value, hemoglobin is 12.6, labs d-dimer from yesterday was 2.64, electrolytes and renal profile were unremarkable, CRP is 14.9, trending up, and her last d-dimer from yesterday was improving compared the previous value. Pro-calcitonin level was negative at 0.12. On today's evaluation on 10/27/2021 patient is seen in follow-up on medical surgical floor. On 10/25/2021 night she had a event, and a rapid response team was called to the bedside patient had worsening dyspnea and complaints of pleuritic chest pain. CT angiogram of the chest was completed showing no evidence of pulmonary embolism, and marked acute cardiopulmonary disease. Since that time patient has been maintained on BiPAP with pressures of 15 and 5 and FiO2 of the 100% and FiO2 has gradually been dropped down to 90%. However hernando braxton developed worsening pneumomediastinum, and subcutaneous emphysema which is worsened compared to yesterday's exam, and patient has extensive subcutaneous emphysema involving her face, neck, eyes, upper chest. Patient has difficulty opening her eyes related to worsening subcutaneous emphysema. On today's exam patient remains on BiPAP support with pressures of 15 of 5 and FiO2 of 90%, she is generating excellent tidal volumes in the order of 800 mL, and subsequently IPAP was dropped down to 12, and EPAP remains at 5, she still generating tidal volumes in the order of 600-700 mL. O2 saturations have remained stable, and FiO2 was gradually brought down to 60%, her pulse ox is currently 89-90%. She is breathing comfortably, she wants a break from the BiPAP mask and she will be tried on Airvo so she can take a drink of water and clean her mouth. On 10/28/2021 patient seen in follow-up on medical surgical floor, her subcutaneous emphysema continues to progress, and has extended to her right arm, bilateral shoulders, chest, neck, face. Her breathing continues to be labored, she was placed back on BiPAP support with pressures of 12 and 6 and FiO2 100%, her pulse ox is 93%, today's follow-up chest x-ray shows extensive soft tissue air without change, no pneumothorax, trachea is midline, there is pulmonary interstitial and airspace edema. Patient is tachypneic, labored breathing. She has been maximized as far as COVID treatment, she remains on Baritinib, Decadron 6 mg daily, prophylactic Lovenox. We gave her a dose of IV Lasix yesterday. The fluid balance is difficult to estimate. Today's labs have been reviewed, white blood cell count is 20.2, increased from the day before, hemoglobin is 14.5, sodium is 144, potassium 3.6, chloride is 110, BUN is 32, creatinine 0.82, pro-calcitonin level came back negative at 0.10. Her inflammatory markers are still pending but they were increasing in yesterday's labs. On 10/29/2021 patient is seen in follow-up on medical surgical floor. Overnight multiple rapid response team's were called in regards to worsening dyspnea and hypoxia. Patient had been placed on BiPAP support, with FiO2 the 100%, despite that she continued to be dyspneic and hypoxic. Her subcutaneous emphysema has significantly worsened, extending to her eyes, face, neck, chest, arms. Follow- up chest x-ray today shows extensive subcutaneous emphysema over the entire chest and neck, pulmonary interstitial and airspace edema in the lungs were difficult to evaluate related to soft tissue air. Currently she remains on BiPAP support, she has received Ativan and morphine, she is currently quite lethargic, her pulse ox is only 72%. She has been maximized on medical treatment for COVID related pneumonia, she has unfortunately developed multiple complications including pneumomediastinum, extensive subcutaneous emphysema, persistent hypoxic respiratory failure. She remains on Baricirinib, which she has not been able to take related to been BiPAP dependent, she is on prophylactic Lovenox, and Decadron. Her family is at the bedside today, she has a poor prognosis, she continued to worsen despite medical treatment, and at this time hospice is being recommended. The family has decided to make the patient comfortable at this time. Objective - Vital Signs Vital signs: Vital Signs Temp 100.5 F H 10/29/21 10:18 Pulse 141 H 10/29/21 05:27 Resp 24 10/29/21 05:27 BP 122/76 10/29/21 05:27 Pulse Ox 82 L 10/29/21 05:27 Intake & Output 10/28/21 10/29/21 10/29/21 18:59 06:59 18:59 Intake Total 290 Balance 290 Intake: Intake, IV Titration 270 Amount Sodium Chloride 0.9% 1, 120 000 ml @ 20 mls/hr IV . Q24H [facility] Rx#:[id number] Sodium Chloride 0.9% 1, 150 000 ml @ 75 mls/hr IV . [id number] [facility] Rx#:[id number] Oral 20 Other: Voiding Method Bedside Commode Diaper Diaper Incontinent Incontinent - Exam GENERAL EXAM: Lethargic 51-year-old white female, on BiPAP support, with pressures of 12 and 5, 100%, patient is poorly responsive, her pulse ox is 72%, and patient has developed extensive subcutaneous emphysema involving the neck, u pper chest, shoulders, and arms face and eyes HEAD: Normocephalic/atraumatic. EYES: Normal reaction of pupils, equal size. Conjunctiva pink, sclera white. Patient has extensive subcu air and unable to open eyes NOSE: Clear with pink turbinates. THROAT: No erythema or exudates. NECK: No masses, no JVD, no thyroid enlargement, no adenopathy. CHEST: No chest wall deformity. Symmetrical expansion. subcutaneous emphysema involving neck and chest LUNGS: Equal air entry with diffuse crackles, a few wheezes CVS: Regular rate and rhythm, normal S1 and S2, no gallops, no murmurs, no rubs ABDOMEN: Soft, nontender. No hepatosplenomegaly, normal bowel sounds, no guarding or rigidity. EXTREMITIES: No clubbing, no edema, no cyanosis, 2+ pulses and upper and lower extremities. MUSCULOSKELETAL: Muscle strength and tone normal. SPINE: No scoliosis or deformity SKIN: No rashes CENTRAL NERVOUS SYSTEM: Lethargic, poorly responsive. No focal deficits, tone is normal in all 4 extremities. - Labs CBC & Chem 7: 10/29/21 04:13 10/29/21 04:13 Labs: Abnormal Lab Results - Last 24 Hours (Table) 10/29/21 10/29/21 Range/Units 04:13 04:13 WBC 21.82 H (4.50-10.00) X 10*3/uL MCV 101.4 H (80.0-97.0) fL MCHC 30.6 L (32.0-37.0) g/dL RDW 16.2 H (11.5-14.5) % Immature Gran # 0.16 H (0.00-0.04) X 10*3/uL Neutrophils # 20.56 H (1.80-7.70) X 10*3/uL Lymphocytes # 0.75 L (0.90-5.00) X 10*3/uL Eosinophils # 0.02 L (0.04-0.35) X 10*3/uL Sodium 150 H (135-145) mmol/L Chloride 112 H (96-109) mmol/L BUN 27.8 H (9.0-27.0) mg/dL BUN/Creatinine Ratio 34.75 H (12.00-20.00) Ratio Glucose 131 H (70-110) mg/dL Albumin 3.3 L (3.8-4.9) g/dL Albumin/Globulin Ratio 1.03 L (1.60-3.17) g/dL Assessment and Plan Plan: Assessment: #1. Acute COVID-19 related pneumonia, patient has completed Remdesivir, she c ontinues on Decadron, she was started on Baricitinib on 10/25/2021 for worsening hypoxia. Follow-up CTA scan of the chest showed no evidence of any pulmonary embolism. There are diffuse bilateral groundglass pulmonary infiltrates consistent with COVID-19 infection. There is also significant pneumomediastinum #2. Acute hypoxic respiratory failure related to the above, currently patient is on BiPAP support with 12 of 6 and FiO2 of 100% #3. Extensive subcutaneous emphysema involving face, eyes, neck and chest area related to pneumomediastinum possibly related to COVID 19 #4. Severe persistent bronchial asthma, managed on outpatient basis with the combination of Dulera/Qvar in addition to Singulair and Xolair injections #5. History of glioblastoma the brain, involving the right parietal lobe of the brain, resected surgically. Patient has developed left-sided paresis, patient has additional lesions that she supposed to receive radiation therapy for at a later stage. Patient is having issues with nonhealing scalp wound and for that reason the radiation has been delayed. Her wound is currently healed #6. History of melanoma the skin, resected #7. Hyperlipidemia #8. History of kidney stones Plan: Patient has continued to deteriorate in last 24 hours, with worsening dyspnea, hypoxia, worsening subcutaneous emphysema She was quite restless, she was given Ativan and morphine for comfort, she is quite lethargic, she is hypoxic despite the BiPAP support with FiO2 100% Her prognosis is quite poor, she has been maximized in terms of medical treatment for her COVID-19 pneumonia We recommended hospice consultation yesterday At this time the family is at the bedside, they have decided to go comfort care measures Pulmonary service will sign off and follow on an as-needed basis I performed a history & physical examination of the patient and discussed their management with my nurse practitioner, Cristina Angeles. I reviewed the nurse practitioner's note and agree with the documented findings and plan of care. Lung sounds are positive for diffuse wheezes throughout the lung hess. The findings and the impression was discussed with the patient. I attest to the documentation by the nurse practitioner. Time with Patient: Less than 30
[2021-10-29] MEDS ORDERED: MORPHINE SULFATE (100 MG/2 ML) 100 MG in SODIUM CHLORIDE 0.9% 100 ML IV SCH (13:45)
== END 2021-10-29 15:46 | disposition expired | DRG 177 ==
LOC: EC 11:11 → 4SSUR 13:44
PROVIDERS: ADMIT Internal Medicine; ATTEND Internal Medicine
PROC: XW033E5 Introduction of Remdesivir Anti-infective into Peripheral Vein, Percutaneous Approach, New Technology Group 5 (ICD-10-PCS; principal; 2021-10-21)
PROC: XW0DXM6 Introduction of Baricitinib into Mouth and Pharynx, External Approach, New Technology Group 6 (ICD-10-PCS; 2021-10-25)
PROC: 5A09457 Assistance with Respiratory Ventilation, 24-96 Consecutive Hours, Continuous Positive Airway Pressure (ICD-10-PCS; 2021-10-26)
DX: U07.1 COVID-19 (principal); J96.01 Acute respiratory failure with hypoxia; J12.82 Pneumonia due to coronavirus disease 2019; G93.6 Cerebral edema; C71.3 Malignant neoplasm of parietal lobe; Z51.5 Encounter for palliative care; Z66 Do not resuscitate; E78.5 Hyperlipidemia, unspecified; J45.50 Severe persistent asthma, uncomplicated; K21.9 Gastro-esophageal reflux disease without esophagitis; R29.810 Facial weakness; F41.9 Anxiety disorder, unspecified; J98.2 Interstitial emphysema; Z79.51 Long term (current) use of inhaled steroids; Z79.899 Other long term (current) drug therapy; Z85.820 Personal history of malignant melanoma of skin; Z87.442 Personal history of urinary calculi; Z90.49 Acquired absence of other specified parts of digestive tract; Z98.51 Tubal ligation status; Z83.3 Family history of diabetes mellitus; Z98.890 Other specified postprocedural states; Z80.9 Family history of malignant neoplasm, unspecified
CPT/HCPCS: 36415; 71045; 71046; 71275; 80048; 80053; 82728; 83605; 83615; 83880; 84145; 84484; 85025; 85379; 85610; 85730; 86140; 87635; 93005; 94640; 94660; 94760; 96374; 99285